=== PATIENT | male | born 1935 | race Two or more races ===

== ENCOUNTER 2020-11-12 23:51 | Inpatient (IN) | payer MEDICARE, OTHER ==
[~2020-11-12] VITALS: Ht 172.7 cm; Wt 65.8 kg
--- NOTE | 2020-11-13 00:05 | NUR ---
PATIENT GINNA FROM [facility] FOR INCRESING SOB AND DRY COUGH X 3 DAYS. PATIENT A/O X 4, RR EVEN AND UNLABORED, NO SOB NOTED AT THIS TIME, PATIENT CONNECTED TO GYMNASTIC COACH AND POX. PATINET PLACED ON 2L NC STAT AT 96%. WILL CONTINUE TO MONITOR.
--- NOTE | 2020-11-13 00:11 | NUR ---
X RAY AT BEDSIDE
[2020-11-13] MEDS ORDERED: NITROGLYCERIN PACKET 1 GM PACKET ONE (00:16)
[2020-11-13 00:25] LABS: BASOPHILS % (AUTO) 0.6 % (0.0-2.0); EOSINOPHILS % (AUTO) 1.7 % (0.0-6.0); HEMATOCRIT 31 % (39-51); HEMOGLOBIN 9.8 g/dL (13.5-17.5); LYMPHOCYTES # (AUTO) 1.5 K/uL (0.8-4.8); LYMPHOCYTES % (AUTO) 39.5 % (20.0-44.0); MEAN CORPUSCULAR HGB CONC 32 g/dl (31.0-36.0); MEAN CORPUSCULAR VOLUME 97 fL (80-96); MONOCYTES # (AUTO) 0.4 K/uL (0.1-1.30); MONOCYTES % (AUTO) 10.8 % (2.0-12.0); NEUTROPHILS # (AUTO) 1.8 K/uL (1.8-8.9); NEUTROPHILS % (AUTO) 47.4 % (43.0-81.0); PLATELET COUNT (AUTO) 89 K/uL (150-450); RED BLOOD CELL COUNT(AUTO) 3.22 MIL/uL (4.5-6.0); WHITE BLOOD COUNT (AUTO) 3.7 K/uL (4.3-11.0)
--- NOTE | 2020-11-13 00:25 | NUR ---
COVID SWAB COLLECTED AND SENT TO LAB
[2020-11-13] MEDS ORDERED: NITROGLYCERIN PACKET 1 GM PACKET TD ONE (00:30)
[2020-11-13 00:49] LABS: ALBUMIN 2.9 g/dL (3.4-5.0); BILIRUBIN,DIRECT 0.2 mg/dL (0.0-0.2); BILIRUBIN,TOTAL 0.5 mg/dL (0.2-1.0); CALCIUM, SERUM 8.5 mg/dL (8.5-10.1); CREATININE 1.1 mg/dL (0.6-1.3); POTASSIUM 5.3 mmol/L (3.5-5.1); TOTAL PROTEIN, SERUM 8.8 g/dL (6.4-8.2)
[2020-11-13 00:51] LABS: NEUTROPHILS % (MANUAL) 49 (42-76)
[2020-11-13 00:52] LABS: EOSINOPHILS % (MANUAL) 2 % (0-4); LYMPHOCYTES % (MANUAL) 43 % (16-48); MONOCYTES % (MANUAL) 6 % (0-11.0)
[2020-11-13] MEDS ORDERED: LEVO25TA7 PO (00:52)
[2020-11-13] MEDS ORDERED: APIX2.5T PO (00:52)
[2020-11-13] MEDS ORDERED: TIMO5SOL11 EACHEYE (00:52)
[2020-11-13] MEDS ORDERED: BRIN10DR EACHEYE (00:52)
[2020-11-13] MEDS ORDERED: PANT40TA49 PO (00:52)
[2020-11-13] MEDS ORDERED: FINA5TAB4 PO (00:52)
[2020-11-13] MEDS ORDERED: TAMS-12 PO (00:52)
[2020-11-13] MEDS ORDERED: FUROSEMIDE 20 MG/2 ML VIAL ONE (01:17)
[2020-11-13] MEDS ORDERED: ASPIRIN 325 MG TABLET ONE (01:17)
[2020-11-13] MEDS ORDERED: CEFTRIAXONE 1GM BAG (ER ONLY) 50 ML IV ONE (01:20)
--- NOTE | 2020-11-13 01:21 | NUR ---
GOT BED 107
[2020-11-13] MEDS ORDERED: FUROSEMIDE 20 MG/2 ML VIAL IV ONE (01:30)
[2020-11-13] MEDS ORDERED: CEFTRIAXONE 1GM BAG (ER ONLY) 1 GM/50 ML PIGGYBACK IV ONE (01:30)
[2020-11-13] MEDS ORDERED: ASPIRIN 325 MG TABLET PO ONE (01:30)
--- NOTE | 2020-11-13 01:42 | NUR ---
REPORT GIVEN TO TABATHA GILLILAND
--- NOTE | 2020-11-13 02:04 | NUR ---
PATIENT TRANSFERRED PER [facility] [employer]
[2020-11-13 02:30] VITALS: BP 133/43
--- NOTE | 2020-11-13 02:30 | NUR ---
RN ADMITTING NOTE RECEIVED PT FROM ZACK MAYS FROM ED [facility]IA [employer]. PT ON 2L NC SATURATIONS OVER 98%, NO RESP. DISTRESS NOTED. NON PRODUCTIVE COUGH. PT. IS A/O X4, DENIES ANY PAIN. ON TELE MONITOR PRESENTS A-FIB/ A-FLUTTER WITH BUNDLE BRANCH BLOCK. PT. HAS (L) CHEST WALL PACEMAKER. PT. ABLE TO USE URINAL WITH MIN. ASSISTANCE. UPON SKIN ASSESSMENT SACRAL DTI NOTED, PENDING WOUND CONSULT. (L) FA 20G IV FLUSHED AND PATENT. ALL BELONGINGS ACCOUNTED FOR. SAFETY MEASURES IMPLEMENTED. BED LOWEST POSITION, CALL LIGHT WITHIN REACH, ID BAND ON, BED RAILS UP X3 AND BED ALARM ON. NO ACUTE DISTRESS NOTED AT THIS TIME. AWAITING MD ORDERS FOR PLAN OF CARE.
[2020-11-13 04:00] VITALS: BP 117/56
--- NOTE | 2020-11-13 04:07 | NUR ---
RN NOTE-ADMITTING ORDERS CALLED DR FORBES, ORDERS TO CONTINUE SELECT MEDICATIONS NEW AND FROM FACILITY, WOUND CONSULT, LABS READ BACK VIA TELEPHONE ORDER. ORDERS CARRIED OUT.
[2020-11-13] MEDS ORDERED: GUAIFENESIN/CODEINE 10 ML UDC PO PRN (04:30)
[2020-11-13 06:46] LABS: BASOPHILS % (AUTO) 0.4 % (0.0-2.0); EOSINOPHILS % (AUTO) 1.7 % (0.0-6.0); HEMATOCRIT 29 % (39-51); HEMOGLOBIN 9.2 g/dL (13.5-17.5); LYMPHOCYTES # (AUTO) 1.3 K/uL (0.8-4.8); LYMPHOCYTES % (AUTO) 40.5 % (20.0-44.0); MEAN CORPUSCULAR HGB CONC 32 g/dl (31.0-36.0); MEAN CORPUSCULAR VOLUME 98 fL (80-96); MONOCYTES # (AUTO) 0.3 K/uL (0.1-1.30); MONOCYTES % (AUTO) 11.2 % (2.0-12.0); NEUTROPHILS # (AUTO) 1.4 K/uL (1.8-8.9); NEUTROPHILS % (AUTO) 46.2 % (43.0-81.0); PLATELET COUNT (AUTO) 76 K/uL (150-450); RED BLOOD CELL COUNT(AUTO) 2.93 MIL/uL (4.5-6.0); WHITE BLOOD COUNT (AUTO) 3.1 K/uL (4.3-11.0)
--- NOTE | 2020-11-13 06:48 | NUR ---
RN CLOSING NOTE PT CURRENTLY STABLE RESTING IN BED. PT ON 2L NC SATURATIONS OVER 98%, NO RESP. DISTRESS NOTED. NON PRODUCTIVE COUGH. PT. IS A/O X4, DENIES ANY PAIN. ON TELE MONITOR PRESENTS A-FIB/ A-FLUTTER WITH BUNDLE BRANCH BLOCK. PT. HAS (L) CHEST WALL PACEMAKER. PT. ABLE TO USE URINAL WITH MIN. ASSISTANCE. (L) FA 20G IV FLUSHED AND PATENT. ALL MD ORDERS ACKNOWLEDGED. SAFETY MEASURES IMPLEMENTED. BED LOWEST POSITION, CALL LIGHT WITHIN REACH, ID BAND ON, BED RAILS UP X3 AND BED ALARM ON. NO ACUTE DISTRESS NOTED AT THIS TIME. WILL ENDORSE CONTINUITY OF CARE TO MORNING SHIFT RN
[2020-11-13 06:55] LABS: ALBUMIN 2.9 g/dL (3.4-5.0); BILIRUBIN,TOTAL 0.4 mg/dL (0.2-1.0); CALCIUM, SERUM 8.7 mg/dL (8.5-10.1); TOTAL PROTEIN, SERUM 8.7 g/dL (6.4-8.2)
[2020-11-13] MEDS ORDERED: MORPHINE SULFATE INJ 2 MG/ML DISP.SYRIN IVP PRN (07:00)
[2020-11-13] MEDS ORDERED: ONDANSETRON HCL/PF 4 MG/2 ML VIAL IV PRN (07:00)
[2020-11-13] MEDS ORDERED: ACETAMINOPHEN 325 MG TABLET PO PRN (07:00)
[2020-11-13 07:01] LABS: THYROID STIMULATING HORMONE 3.861 uIU/mL (0.358-3.74)
[2020-11-13 07:18] LABS: POTASSIUM 4.3 mmol/L (3.5-5.1)
[2020-11-13] MEDS ORDERED: DOCU-141 PO (07:26)
[2020-11-13] MEDS ORDERED: NA P133E RC (07:26)
[2020-11-13] MEDS ORDERED: BISA10SU11 RC (07:26)
[2020-11-13] MEDS ORDERED: ACET-868 PO (07:26)
[2020-11-13] MEDS ORDERED: GUAI100S11 PO (07:26)
[2020-11-13] MEDS ORDERED: IPRA3AMP23 IH (07:26)
[2020-11-13] MEDS ORDERED: SPIR25TA PO (07:26)
[2020-11-13] MEDS ORDERED: MULT-447 PO (07:26)
[2020-11-13] MEDS ORDERED: LATA2.5D15 EACHEYE (07:26)
[2020-11-13] MEDS ORDERED: NITR0.4T48 SL (07:26)
[2020-11-13] MEDS ORDERED: FURO-145 PO (07:26)
[2020-11-13] MEDS ORDERED: MAGN400O6 PO (07:26)
[2020-11-13] MEDS ORDERED: FERR325T23 PO (07:26)
[2020-11-13] MEDS ORDERED: HYDR-4303 PO (07:26)
[2020-11-13] MEDS ORDERED: NA PHOS,M-B/NA PHOS,DI-BA 1 EA ENEMA RC PRN (07:30)
[2020-11-13] MEDS ORDERED: BISACODYL SUPP (10 MG) 10 MG/SUPP.RECT SUPP.RECT RC PRN (07:30)
[2020-11-13] MEDS ORDERED: NITROGLYCERIN 0.4 MG/TAB BOTTLE SL PRN (07:30)
[2020-11-13] MEDS ORDERED: MAGNESIUM HYDROXIDE 30 ML UDC PO PRN (07:30)
[2020-11-13 08:00] VITALS: BP 123/61
[2020-11-13] MEDS ORDERED: ALBUTEROL FS 2.5 MG/0.5 ML VIAL.NEB NEB PRN (08:00)
[2020-11-13] MEDS ORDERED: IPRATROPIUM NEB FS 0.5 MG/2.5 ML AMPUL.NEB NEB PRN (08:00)
[2020-11-13] MEDS: LEVOTHYROXINE SODIUM 25 MCG TABLET PO SCH (08:03)
[2020-11-13] MEDS: PANTOPRAZOLE 40 MG TABLET.DR PO SCH (08:03)
--- NOTE | 2020-11-13 08:37 | NUR ---
WOUND CARE CONSULT: REVIEWED CHART, NURSING DOCUMENTATION AND PHOTOS WHICH INDICATE DISCOLORATIONS TO LOWER EXTREMITIES AND RASH/DISCOLORATION TO SACRUM AND BUTTOCKS WITH RASH AND OPEN SKIN OVER PREVIOUS SCARRING, PRESENT ON ADMISSION. RECOMMENDATIONS MADE FOR SKIN PROTECTION. DISCUSSED WITH NURSING STAFF. PT TO BE PLACED ON RYLAND ISOFLEX LOW AIRLOSS BED. MD IN AGREEMENT WITH PLAN OF CARE.
[2020-11-13] MEDS ORDERED: FUROSEMIDE 20 MG/2 ML VIAL IV SCH (09:00)
[2020-11-13] MEDS ORDERED: Z GUARD REMEDY 2 OZ OINT TP PRN (09:00)
[2020-11-13] MEDS: CEFEPIME 1 GM in IV D5W 50 ML IV SCH ×2 (09:00→21:00)
[2020-11-13] MEDS: SPIRONOLACTONE 25 MG TABLET PO SCH (09:13)
[2020-11-13] MEDS: ASPIRIN 81 MG TAB.CHEW PO SCH (09:14)
[2020-11-13] MEDS: FINASTERIDE (5 MG) 5 MG TABLET PO SCH (09:14)
[2020-11-13] MEDS: APIXABAN 2.5 MG TABLET PO SCH ×2 (09:16→17:06)
[2020-11-13] MEDS: DOCUSATE SODIUM 100 MG CAPSULE PO SCH ×2 (09:17→17:06)
[2020-11-13] MEDS: BRINZOLAMIDE 1 % OPHTH SOLN 10 ML BOTTLE EACHEYE SCH ×2 (09:17→12:33)
[2020-11-13] MEDS: MULTIVIT W/MINERALS 1 TAB TABLET PO SCH (09:18)
[2020-11-13] MEDS ORDERED: TIMO5DRO35 EACHEYE (09:30)
[2020-11-13] MEDS ORDERED: ASCO-352 PO (09:30)
[2020-11-13] MEDS ORDERED: DICL20GE TD (09:30)
[2020-11-13 10:17] LABS: PHOSPHORUS 4.3 mg/dL (2.5-4.9)
[2020-11-13 11:47] LABS: THYROID STIMULATING HORMONE 4.097 uIU/mL (0.358-3.74)
[2020-11-13 12:00] VITALS: BP 118/72
[2020-11-13] MEDS: CLOTRIMAZOLE 1% 15 GM TUBE TP SCH ×2 (12:07→17:10)
[2020-11-13] MEDS: Z GUARD REMEDY 2 OZ OINT TP SCH (12:07)
[2020-11-13] MEDS: FUROSEMIDE 40 MG/4 ML VIAL IV SCH ×3 (12:07→18:13)
[2020-11-13 16:00] VITALS: BP 128/69
[2020-11-13] MEDS: DORZOLAMIDE OPTH 2% 10 ML BOTTLE EACHEYE SCH (17:08)
[2020-11-13 20:00] VITALS: BP 124/50
--- NOTE | 2020-11-13 20:00 | NUR ---
RN NOTE CRITICAL LAB VALUE OF TROPONIN 0.967 RECEIVED BY MARU IN LABORATORY. DR TAM HASSAN NOTIFIED. AWARE CURRENT TROPONIN LEVEL IS TRENDING DOWN COMPARED TO 1.019 AT 1300 TODAY. PT CURRENTLY ON ELIQUIS AND ASPIRIN. ALSO NOTIFIED OF PLT LEVEL OF 76. ORDERED TO HOLD ASPIRIN AM DOSE IF PLT CONTINUE TO TREND DOWN. WILL ENDORSE TO MORNING RN AND CONTINUE TO MONITOR LAB VALUE.
[2020-11-13] MEDS: ATORVASTATIN 40 MG TABLET PO SCH (21:45)
[2020-11-13] MEDS ORDERED: LATANOPROST EYE DROP 0.005% 2.5 ML BOTTLE EACHEYE SCH (22:00)
[2020-11-14] VITALS: BP 124/51
[2020-11-14 04:00] VITALS: BP 122/58
--- NOTE | 2020-11-14 06:43 | NUR ---
RN CLOSING NOTE PT CURRENTLY STABLE RESTING IN BED. PT ON 2L NC SATURATIONS OVER 98%, NO RESP. DISTRESS NOTED. NON PRODUCTIVE COUGH. PT. IS A/O X4, DENIES ANY PAIN. ON TELE MONITOR PRESENTS A-FIB/ A-FLUTTER WITH BUNDLE BRANCH BLOCK V-PACING. PT. HAS (L) CHEST WALL PACEMAKER. PT. ABLE TO USE URINAL WITH MIN. ASSISTANCE. (L) FA 20G IV FLUSHED AND PATENT. MEDICATION REGIMEN AND WOUND CARE FOLLOWED ORDERED AND TOLERATED WELL. SAFETY MEASURES IMPLEMENTED. BED LOWEST POSITION, CALL LIGHT WITHIN REACH, ID BAND ON, BED RAILS UP X3 AND BED ALARM ON. NO ACUTE DISTRESS NOTED AT THIS TIME. WILL ENDORSE CONTINUITY OF CARE TO MORNING SHIFT RN
[2020-11-14 07:06] LABS: *SPE A/G RATIO 0.6 (0.7-1.7); *SPE ALBUMIN 3.1 g/dL (2.9-4.4); *SPE ALPHA-1-GLOBULIN 0.2 g/dL (0.0-0.4); *SPE ALPHA-2-GLOBULIN 0.7 g/dL (0.4-1.0); *SPE M-SPIKE 0.5 g/dL (Not Observed)
[2020-11-14 07:09] LABS: BASOPHILS % (AUTO) 0.1 % (0.0-2.0); EOSINOPHILS % (AUTO) 0.6 % (0.0-6.0); HEMATOCRIT 31 % (39-51); LYMPHOCYTES # (AUTO) 1.8 K/uL (0.8-4.8); MEAN CORPUSCULAR HGB CONC 32 g/dl (31.0-36.0); MEAN CORPUSCULAR VOLUME 98 fL (80-96); MONOCYTES # (AUTO) 0.5 K/uL (0.1-1.30); MONOCYTES % (AUTO) 11.2 % (2.0-12.0); NEUTROPHILS # (AUTO) 2.1 K/uL (1.8-8.9); NEUTROPHILS % (AUTO) 47.1 % (43.0-81.0); PLATELET COUNT (AUTO) 80 K/uL (150-450); RED BLOOD CELL COUNT(AUTO) 3.16 MIL/uL (4.5-6.0); WHITE BLOOD COUNT (AUTO) 4.5 K/uL (4.3-11.0)
[2020-11-14 07:40] LABS: ALBUMIN 3.1 g/dL (3.4-5.0); BILIRUBIN,TOTAL 0.5 mg/dL (0.2-1.0); CALCIUM, SERUM 9.2 mg/dL (8.5-10.1); CREATININE 1.1 mg/dL (0.6-1.3); MAGNESIUM 2.1 mg/dL (1.8-2.4); PHOSPHORUS 4.8 mg/dL (2.5-4.9); POTASSIUM 4.5 mmol/L (3.5-5.1); TOTAL PROTEIN, SERUM 9.1 g/dL (6.4-8.2)
[2020-11-14 08:00] VITALS: BP 119/45
--- NOTE | 2020-11-14 08:00 | NUR ---
WAITRESS NOTE PATIENT IN BED, ALERT ORIENTED ON 2L NC, NO SOB NOTED AT THIS TIME, ON TELE MONITOR AFIB VPACING HR 65, LT FA IN PLACED , BED IN LOWEST AND LOCKED POSITION , ST AT BEDSIDE ALL NEEDS ATTENDED WILL MONITOR NO SOB NOTED AT THIS TIME ,BED IN [id number] AND LOCKED POSITION SAFETY MEASURE PROVIDED
[2020-11-14] MEDS: CEFEPIME 1 GM in IV D5W 50 ML IV SCH ×2 (08:42→20:37)
[2020-11-14] MEDS: PANTOPRAZOLE 40 MG TABLET.DR PO SCH (08:42)
[2020-11-14] MEDS: FINASTERIDE (5 MG) 5 MG TABLET PO SCH (08:42)
[2020-11-14] MEDS: SPIRONOLACTONE 25 MG TABLET PO SCH (08:42)
[2020-11-14] MEDS: MULTIVIT W/MINERALS 1 TAB TABLET PO SCH (08:42)
[2020-11-14] MEDS: DOCUSATE SODIUM 100 MG CAPSULE PO SCH ×2 (08:43→16:51)
[2020-11-14] MEDS: LEVOTHYROXINE SODIUM 25 MCG TABLET PO SCH (08:50)
[2020-11-14] MEDS: APIXABAN 2.5 MG TABLET PO SCH ×2 (08:51→16:52)
[2020-11-14] MEDS: Z GUARD REMEDY 2 OZ OINT TP SCH (08:52)
[2020-11-14] MEDS: DORZOLAMIDE OPTH 2% 10 ML BOTTLE EACHEYE SCH ×3 (08:53→16:53)
[2020-11-14] MEDS: TIMOLOL 0.5% SOLN OPHTH 5 ML BOTTLE EACHEYE SCH ×2 (08:54→09:02)
[2020-11-14] MEDS ORDERED: TIMOLOL 0.5% SOLN OPHTH 5 ML BOTTLE EACHEYE SCH (09:00)
[2020-11-14] MEDS: ASPIRIN 81 MG TAB.CHEW PO SCH (09:00)
[2020-11-14] MEDS: CLOTRIMAZOLE 1% 15 GM TUBE TP SCH ×2 (09:02→16:56)
--- NOTE | 2020-11-14 10:17 | NUR ---
READY MIX TRUCK DRIVER NOTE PER REPORT BATTERY SERVICE TECHNICIAN RN OK TO HOLD ASA PER DR DORSEY DUE TO LOW PLATELETS, TODAY IS 80
[2020-11-14] MEDS: FUROSEMIDE 40 MG/4 ML VIAL IV SCH ×4 (10:19→17:33)
--- NOTE | 2020-11-14 11:06 | NUR ---
telephone information clerk note new hl on rt hand reinserted ryan 22as ordered, will cont to monitor closely
--- NOTE | 2020-11-14 11:45 | NUR ---
HOSPITALITY WORKERS NOTE SEEN BY DR FORBES NOTIFIED THAT PLATELETS 80 OK TO HOLD FOR TODAY ALSO AWARE THAT PATIENT COUGH AT TIME STATED THAT WILL CHECK IT OUT
[2020-11-14 12:00] VITALS: BP 114/46
[2020-11-14] MEDS: ENSURE ENLIVE CHOC 237 ML CAN PO SCH ×2 (12:08→16:53)
[2020-11-14] MEDS: BENZONATATE 100 MG CAPSULE PO SCH ×2 (12:57→16:52)
[2020-11-14] MEDS: ALLOPURINOL 100 MG TABLET PO SCH (12:58)
--- NOTE | 2020-11-14 13:00 | NUR ---
PAYROLL AND BENEFITS SPECIALIST NOTE \ PACEMAKER CHECKED BY INTERVENTIONAL RADIOLOGY RN STATED THAT WILL REPORT TO DR KEYS
--- NOTE | 2020-11-14 15:14 | NUR ---
telephone operator receptionist note all needs attended ,keep clean dry ,no sob noted, will cont to monitor
[2020-11-14 16:00] VITALS: BP 113/46
--- NOTE | 2020-11-14 18:00 | NUR ---
TELE RNNOTE REFUSED TO HAVE LASIX 40 MG IVP EXPLAINED OF IMPORTANCE STILL REFUSED ,PATIENT RIGHT RESPECTED ,WILL CONT TO MONITOR
--- NOTE | 2020-11-14 18:33 | NUR ---
CONFIGURATION ENGINEER NOTE ROUND MADE ,REPOSITION DONE, KEEP CLEAN DRY , REFUSED TO HAVE DVT PUMPS AT THIS TIME , REFUSED TO EAT LUNCH ,STATED WANT TO SLEEP FOR NOW , ALL NEEDS ATTENDED, SAFETY MEASURE PROVIDED , CALL LIGHT WITHIN REACH
[2020-11-14 20:00] VITALS: BP 116/45
--- NOTE | 2020-11-14 20:00 | NUR ---
MOP MAKER OPENING NOTE Patient is awake, alert, and oriented x4. VSS. Denies pain or discomfort at this time. Will reposition q2H as pt is at risk for skin breakdown. Encouraged rest as much as possible. Continues to have minimal dry cough noted. No signs of distress will continue to monitor.
[2020-11-14] MEDS: LATANOPROST EYE DROP 0.005% 2.5 ML BOTTLE EACHEYE SCH (21:59)
[2020-11-14] MEDS: TAMSULOSIN 0.4 MG CAP.SR.24H PO SCH (21:59)
[2020-11-14] MEDS: ATORVASTATIN 40 MG TABLET PO SCH (21:59)
[2020-11-15] VITALS: BP 106/40
--- NOTE | 2020-11-15 00:30 | NUR ---
Patient temperature 99.9. Heater in room on because he becomes cold easily -has 6 blankets on. Initiate cooling measures to cool off core temp. Blankets taken off, temperature in room turned down. Will check back often.
[2020-11-15 04:00] VITALS: BP 114/42
--- NOTE | 2020-11-15 04:00 | NUR ---
patients temp resolved with cooling measures 97.8
[2020-11-15] MEDS: ACETAMINOPHEN 325 MG TABLET PO PRN (06:27)
--- NOTE | 2020-11-15 06:38 | NUR ---
INTELLIGENCE OPERATIONS CLOSING NOTES Patient is A&Ox4. VSS. Repositioned q2h. Needs anticipated and met by staff. Tylenol given at 0630 for headache 07/17. Patient reports the headache feels like pressure to temples. Reading on monitor is AFib. Pt been on bed rest with DVT machines on. Urinates using burr clear yellow urine. No BM this shift.
[2020-11-15 07:12] LABS: BASOPHILS % (AUTO) 0.3 % (0.0-2.0); EOSINOPHILS % (AUTO) 1.4 % (0.0-6.0); HEMATOCRIT 27 % (39-51); HEMOGLOBIN 8.8 g/dL (13.5-17.5); LYMPHOCYTES # (AUTO) 1.4 K/uL (0.8-4.8); MEAN CORPUSCULAR HGB CONC 33 g/dl (31.0-36.0); MEAN CORPUSCULAR VOLUME 99 fL (80-96); MONOCYTES # (AUTO) 0.5 K/uL (0.1-1.30); MONOCYTES % (AUTO) 12.4 % (2.0-12.0); NEUTROPHILS # (AUTO) 1.7 K/uL (1.8-8.9); NEUTROPHILS % (AUTO) 46.9 % (43.0-81.0); PLATELET COUNT (AUTO) 70 K/uL (150-450); RED BLOOD CELL COUNT(AUTO) 2.69 MIL/uL (4.5-6.0); WHITE BLOOD COUNT (AUTO) 3.6 K/uL (4.3-11.0)
[2020-11-15 07:16] LABS: ALBUMIN 2.8 g/dL (3.4-5.0); BILIRUBIN,TOTAL 0.6 mg/dL (0.2-1.0); CALCIUM, SERUM 8.7 mg/dL (8.5-10.1); CREATININE 1.2 mg/dL (0.6-1.3); MAGNESIUM 1.9 mg/dL (1.8-2.4); PHOSPHORUS 3.6 mg/dL (2.5-4.9); POTASSIUM 4.2 mmol/L (3.5-5.1); TOTAL PROTEIN, SERUM 8.4 g/dL (6.4-8.2)
--- NOTE | 2020-11-15 07:20 | NUR ---
RN NOTE OBSERVED PATIENT IN BED, AWAKE, BREATHING EVEN AND UNLABORED, DX OF NSTEMI AND PNA, AXO X4, BED ALARM ON, PATIENT ON MECHANICAL SOFT , RIGHT FOREARM G 22 PATENT INFUSING WELL, ON IV ATB FOR ASPIRATION PNA, AFEBRILE AT THIS TIME, WITH PACEMAKER, AND TELE MONITOR HR OF 62, BED WHEELS LOCK, CALL LIGHT WITHIN REACH, SAFETY MEASURE OBSERVED, WILL CONTINUE TO MONITOR.
--- NOTE | 2020-11-15 07:28 | NUR ---
RN NOTE CRITICAL LAB TROPONIN-I OF 0.896, NOTIFIED DR. FORBES, NO NEW ORDERS AT THIS TIME, PATIENT APPEARS CALM AND COMFORTABLE WITH NO CHEST PAIN COMPLAIN, WILL CONTINUE TO MONITOR.
[2020-11-15 08:00] VITALS: BP 113/51
[2020-11-15] MEDS: PANTOPRAZOLE 40 MG TABLET.DR PO SCH (08:22)
[2020-11-15] MEDS: LEVOTHYROXINE SODIUM 25 MCG TABLET PO SCH (08:22)
[2020-11-15] MEDS: ENSURE ENLIVE CHOC 237 ML CAN PO SCH ×2 (09:08→17:00)
[2020-11-15] MEDS: CEFEPIME 1 GM in IV D5W 50 ML IV SCH ×2 (09:55→21:01)
[2020-11-15] MEDS: ASPIRIN 81 MG TAB.CHEW PO SCH (09:55)
[2020-11-15] MEDS: TIMOLOL 0.5% SOLN OPHTH 5 ML BOTTLE EACHEYE SCH (09:56)
[2020-11-15] MEDS: DORZOLAMIDE OPTH 2% 10 ML BOTTLE EACHEYE SCH ×3 (09:56→17:25)
[2020-11-15] MEDS: FUROSEMIDE 40 MG TABLET PO SCH (09:59)
[2020-11-15] MEDS: DOCUSATE SODIUM 100 MG CAPSULE PO SCH ×2 (09:59→17:26)
[2020-11-15] MEDS: ALLOPURINOL 100 MG TABLET PO SCH (09:59)
[2020-11-15] MEDS: MULTIVIT W/MINERALS 1 TAB TABLET PO SCH (09:59)
[2020-11-15] MEDS: BENZONATATE 100 MG CAPSULE PO SCH ×3 (09:59→17:26)
[2020-11-15] MEDS: SPIRONOLACTONE 25 MG TABLET PO SCH (09:59)
[2020-11-15] MEDS: FINASTERIDE (5 MG) 5 MG TABLET PO SCH (09:59)
[2020-11-15] MEDS: CLOTRIMAZOLE 1% 15 GM TUBE TP SCH ×2 (10:08→17:00)
[2020-11-15] MEDS: Z GUARD REMEDY 2 OZ OINT TP SCH (10:09)
--- NOTE | 2020-11-15 10:12 | NUR ---
RN NOTE PATIENT ON ELIQUIS 2.5 MG, NOTIFIED DR. FORBES PATIENT PLATELET IF 70, OK TO GIVE ELIQUIS. HOLD ASPIRIN ORDERED.
[2020-11-15] MEDS: APIXABAN 2.5 MG TABLET PO SCH ×2 (10:15→17:27)
[2020-11-15 12:00] VITALS: BP 113/58
[2020-11-15 16:00] VITALS: BP 114/51
--- NOTE | 2020-11-15 19:10 | NUR ---
RN NOTES: RECEIVED AWAKE LYING ON BED WATCHING TV, A/OX4, CONVERSANT AND VERY COMMUNICATIVE, ORIENTED TO UNIT AND STAFF, FOR IV INSERTION, HIS CANNULA WAS OUT, HE AGREE TO DO IT LATER, BREATHING SPONTANEOUSLY ON O2 AT 2L/MIN VIA NC, HE HAS PACEMAKER, ON DIET KITCHEN COOK RATE-62-B PACING, NO PAIN OR DISCOMFORT, NO SOB OR RESPIRATORY DISCOMFORT.KEPT ON CLOSE WATCH. FALL SAFETY AND ASPIRATION PRECAUTION OBSERVED, BED LOW AND LOCKED, CALL LIGHT KEPT WITHIN EASY REACH.
--- NOTE | 2020-11-15 19:30 | NUR ---
RN NOTE PATIENT OBSERVED IN BED, ALERT AND ORIENTED X4, ON TELEMONITOR HR OF 62 PACING, PATIENT HAS A PACEMAKER, BREATHING EVEN AND UNLABORED, ENDORSE PATIENT CURRENT CONDITION TO NOC NURSE SAFETY MEASURE OBSERVED, CALL LIGHT WITHIN REACH, BED WHEELS LOCK, BED ALARM ON.
[2020-11-15 20:00] VITALS: BP 106/44
[2020-11-15] MEDS: LATANOPROST EYE DROP 0.005% 2.5 ML BOTTLE EACHEYE SCH (21:02)
--- NOTE | 2020-11-15 21:36 | NUR ---
RN NOTES: AT 21OO EXPLAINED TO HIM DUE FOR IV/ATB, HE AGREED FOR IV INSERTION ON THE RFA 324, INSERTED 1 TIME WITH GOOD BACK FLOW, AND SECURED WITH TRANSPARENT DRESSING. -HE URINATE, COLLECTED URINE FOR TEST,WILL SEND TO LAB. -IV/ATB GIVEN.
[2020-11-15] MEDS: TAMSULOSIN 0.4 MG CAP.SR.24H PO SCH (21:55)
[2020-11-15] MEDS: ATORVASTATIN 40 MG TABLET PO SCH (21:56)
[2020-11-16] VITALS: BP 113/48
[2020-11-16 00:55] LABS: BILIRUBIN,URINE NEGATIVE (NEGATIVE); COLOR,URINE YELLOW (YELLOW); LEUKOCYTE ESTERASE ,URINE LARGE (NEGATIVE); NITRITE, URINE NEGATIVE (NEGATIVE); PROTEIN,URINE TRACE mg/dl (NEGATIVE); UGLUCOSE NEGATIVE (NEGATIVE); UROBILINOGEN,URINE 0.2 EU/dL (0.2)
[2020-11-16 01:08] LABS: WBC,URINE 81-100 /HPF (0-3)
[2020-11-16 01:09] LABS: BACTERIA,URINE Moderate /HPF (None Seen); SQUAMOUS EPITHELIAL CELL,UR Few /HPF (None Seen)
[2020-11-16 04:00] VITALS: BP 110/41
[2020-11-16] MEDS: ACETAMINOPHEN 325 MG TABLET PO PRN (04:55)
--- NOTE | 2020-11-16 04:55 | NUR ---
RN NOTES: SLEEP WELL IN THE NIGHT , UPON HE WAKE UP COMPLAINED OF GENERALIZED PAIN, REQUEST FOR TYLENOL, GIVEN, NON PHARMACOLOGIC INTERVENTION RENDERED. -NEEDS ATTENDED KEPT CALL LIGHT WIHTIN EASY REACH.
[2020-11-16 06:10] LABS: BASOPHILS % (AUTO) 0.2 % (0.0-2.0); EOSINOPHILS % (AUTO) 1.7 % (0.0-6.0); HEMATOCRIT 29 % (39-51); HEMOGLOBIN 9.4 g/dL (13.5-17.5); LYMPHOCYTES # (AUTO) 1.1 K/uL (0.8-4.8); LYMPHOCYTES % (AUTO) 32.1 % (20.0-44.0); MEAN CORPUSCULAR HGB CONC 32 g/dl (31.0-36.0); MEAN CORPUSCULAR VOLUME 96 fL (80-96); MONOCYTES # (AUTO) 0.4 K/uL (0.1-1.30); NEUTROPHILS # (AUTO) 1.8 K/uL (1.8-8.9); PLATELET COUNT (AUTO) 75 K/uL (150-450); RED BLOOD CELL COUNT(AUTO) 3.04 MIL/uL (4.5-6.0); WHITE BLOOD COUNT (AUTO) 3.4 K/uL (4.3-11.0)
[2020-11-16 06:42] LABS: CALCIUM, SERUM 8.8 mg/dL (8.5-10.1); CREATININE 1.1 mg/dL (0.6-1.3); POTASSIUM 4.9 mmol/L (3.5-5.1)
--- NOTE | 2020-11-16 06:42 | NUR ---
RN NOTES: ABLE TO SLEEP AGAIN, NO SIGN OF RESPIRATORY DISTRESS, KEPT CALL LIGHT WITHIN EASY REACH, MORNING CARE DONE,ENDORSED FOR CONTINUITY OF CARE
--- NOTE | 2020-11-16 07:30 | NUR ---
TIP PUNCHER AM NOTE PT IN BED, AWAKE, ORIENTED X 4, ON 2LPM VIA NASAL CANULA, DENIES SOB, RESPIRATION UNLABORED. WITH PACEMAKER, V PACING ON MONITOR HR 60s, DENIES CHEST DISCOMFORT, RIGHT FOREARM G 24 FLUSHES WELL, SITE CLEAR. SEE NURSING FLOWSHEET FOR SKIN ISSUES, USES URINALS, NEEDS ASSIST IN TURNING AND REPOSITIONING, HOB ELEVATED, MECHANICAL SOFT DIET. POC DISCUSSED, VERBALIZED UNDERSTANDING. SAFETY MEASURES IN PLACE, BED LOW LOCKED, SR UP X 2, CALL LIGHT WITHIN REACH, WILL CONTINUE TO MONITOR.
[2020-11-16 08:00] VITALS: BP 107/42
--- NOTE | 2020-11-16 08:12 | NUR ---
RN NOTES DC TELEMETRY PER DR. KEYS
[2020-11-16] MEDS: DORZOLAMIDE OPTH 2% 10 ML BOTTLE EACHEYE SCH ×3 (08:22→17:47)
[2020-11-16] MEDS: TIMOLOL 0.5% SOLN OPHTH 5 ML BOTTLE EACHEYE SCH (08:23)
[2020-11-16] MEDS: LEVOTHYROXINE SODIUM 25 MCG TABLET PO SCH (08:27)
[2020-11-16] MEDS: PANTOPRAZOLE 40 MG TABLET.DR PO SCH (08:27)
[2020-11-16] MEDS: ENSURE ENLIVE CHOC 237 ML CAN PO SCH ×2 (08:28→17:47)
[2020-11-16] MEDS: FUROSEMIDE 40 MG TABLET PO SCH (08:28)
[2020-11-16] MEDS: DOCUSATE SODIUM 100 MG CAPSULE PO SCH ×2 (08:28→17:47)
[2020-11-16] MEDS: FINASTERIDE (5 MG) 5 MG TABLET PO SCH (08:28)
[2020-11-16] MEDS: SPIRONOLACTONE 25 MG TABLET PO SCH (08:28)
[2020-11-16] MEDS: CEFEPIME 1 GM in IV D5W 50 ML IV SCH (08:28)
[2020-11-16] MEDS: MULTIVIT W/MINERALS 1 TAB TABLET PO SCH (08:28)
[2020-11-16] MEDS: BENZONATATE 100 MG CAPSULE PO SCH (08:32)
[2020-11-16] MEDS: ASPIRIN 81 MG TAB.CHEW PO SCH (08:32)
[2020-11-16] MEDS: APIXABAN 2.5 MG TABLET PO SCH (08:32)
[2020-11-16] MEDS: ALLOPURINOL 100 MG TABLET PO SCH (08:32)
[2020-11-16] MEDS: Z GUARD REMEDY 2 OZ OINT TP SCH (08:47)
[2020-11-16] MEDS: CLOTRIMAZOLE 1% 15 GM TUBE TP SCH ×2 (08:47→17:48)
--- NOTE | 2020-11-16 09:30 | NUR ---
RN NOTES DUE MEDS GIVEN
[2020-11-16] MEDS: MEROPENEM 500 MG in IV NS 0.9% 50 ML IV SCH ×2 (11:29→21:23)
[2020-11-16 12:00] VITALS: BP 104/48
--- NOTE | 2020-11-16 14:30 | NUR ---
RN NOTES PATIENT FOR BONE MARROW BIOPSY AND ASPIRATION C/O DR. TORREZ ON Wednesday11/19/20. TELEPHONE CONSENT GIVEN BY SON MARVIN. ASA AND ELIQUIS STOPPED AND PLACED ON HEPARIN 5,000 EVERY 8 HOURS. HOLD HEPARIN 4 HOURS PRIOR TO PROCEDURE.
[2020-11-16 16:00] VITALS: BP 117/45
--- NOTE | 2020-11-16 18:29 | NUR ---
MS RN PM NOTE PT IN BED, RESTING , AWAKE, ORIENTED X 4, ON 2LPM VIA NASAL CANULA, DENIES SOB, RESPIRATION UNLABORED. WITH PACEMAKER, V PACING ON MONITOR HR 60s, DENIES CHEST DISCOMFORT, RIGHT FOREARM G 24 FLUSHES WELL, SITE CLEAR. USES URINALS, ASSISTED IN TURNING AND REPOSITIONING Q 2 HOURS, HOB ELEVATED, MECHANICAL SOFT DIET. PM CARE DONE. SAFETY MEASURES IN PLACE, BED LOW LOCKED, SR UP X 2, CALL LIGHT WITHIN REACH, ALL NEDDS MET AT THIS TIME. WILL ENDORSE TO NEXT SHIFT FOR CALIN.
--- NOTE | 2020-11-16 19:53 | NUR ---
MS TABATHA Notes Patient was seen awake in bed resting. Patient is alert and oriented x4. Patient's on room air with no respiratory distress noted. Patient has an IV access on his right hand gauge #20. Patient's in no acute distress at this time. Safety measures in place: Bed locked, bed alarm on, side rails up X3, and call light within reach of the patient. Will continue to monitor the patient. Addendum: 11/16/20 at 1958 by CHANDLER MAHAJAN RN Disregard last "MS RN Notes" MS RN Notes Patient was seen awake in bed resting. Patient's alert and oriented x4. Patient's on 2L of oxygen via nasal cannula with no respiratory distress noted. Patient has an IV access on his RFA gauge#24. Patient's in no acute distress at time time. Patient's in no acute distress at this time. Safety measures in place: Bed locked, bed alarm on, side rails up x3, and call light within reach. Will continue to monitor the patient.
[2020-11-16 20:00] VITALS: BP 114/49
[2020-11-16] MEDS: HYDROCODONE/APAP 5/325MG TABLET PO PRN (20:20)
--- NOTE | 2020-11-16 20:20 | NUR ---
MS RN Notes Patient c/o 6/10 pain. Patient was given 1 tablet of [place] (5mg/325mg) by mouth Will continue to monitor the patient.
[2020-11-16] MEDS: TAMSULOSIN 0.4 MG CAP.SR.24H PO SCH (21:22)
[2020-11-16] MEDS: ATORVASTATIN 40 MG TABLET PO SCH (21:22)
[2020-11-16] MEDS: HEPARIN SODIUM, PORCINE 5000 UNITS/1 ML VIAL SQ SCH (21:22)
[2020-11-16] MEDS: LATANOPROST EYE DROP 0.005% 2.5 ML BOTTLE EACHEYE SCH (21:25)
[2020-11-17] MEDS: HEPARIN SODIUM, PORCINE 5000 UNITS/1 ML VIAL SQ SCH (04:12)
[2020-11-17 05:00] VITALS: BP 125/56
--- NOTE | 2020-11-17 07:17 | NUR ---
MS RN Notes Patient was seen sleeping in bed. Patient is alert and oriented x4. Patient's on room air with no respiratory distress noted. Patient has an IV access on his right hand gauge #20. Patient's in no acute distress at this time. Safety measures in place: Bed locked, bed alarm on, side rails up X3, and call light within reach of the patient. Will endorse care to the day shift nurse.
[2020-11-17 08:00] VITALS: BP 134/43
[2020-11-17 08:35] LABS: BASOPHILS % (AUTO) 0.3 % (0.0-2.0); EOSINOPHILS % (AUTO) 1.6 % (0.0-6.0); HEMATOCRIT 28 % (39-51); HEMOGLOBIN 9.1 g/dL (13.5-17.5); LYMPHOCYTES # (AUTO) 1.1 K/uL (0.8-4.8); LYMPHOCYTES % (AUTO) 32.1 % (20.0-44.0); MEAN CORPUSCULAR HGB CONC 33 g/dl (31.0-36.0); MEAN CORPUSCULAR VOLUME 95 fL (80-96); MONOCYTES # (AUTO) 0.5 K/uL (0.1-1.30); NEUTROPHILS # (AUTO) 1.8 K/uL (1.8-8.9); PLATELET COUNT (AUTO) 72 K/uL (150-450); RED BLOOD CELL COUNT(AUTO) 2.93 MIL/uL (4.5-6.0); WHITE BLOOD COUNT (AUTO) 3.4 K/uL (4.3-11.0)
[2020-11-17] MEDS: ALLOPURINOL 100 MG TABLET PO SCH (09:42)
[2020-11-17] MEDS: MULTIVIT W/MINERALS 1 TAB TABLET PO SCH (09:42)
[2020-11-17] MEDS: SPIRONOLACTONE 25 MG TABLET PO SCH (09:42)
[2020-11-17] MEDS: FOLIC ACID 1 MG TABLET PO SCH (09:42)
[2020-11-17] MEDS: DOCUSATE SODIUM 100 MG CAPSULE PO SCH ×2 (09:42→17:38)
[2020-11-17] MEDS: FUROSEMIDE 40 MG TABLET PO SCH (09:42)
[2020-11-17] MEDS: FINASTERIDE (5 MG) 5 MG TABLET PO SCH (09:42)
[2020-11-17] MEDS: LEVOTHYROXINE SODIUM 25 MCG TABLET PO SCH (09:42)
[2020-11-17] MEDS: DORZOLAMIDE OPTH 2% 10 ML BOTTLE EACHEYE SCH ×3 (09:43→17:39)
[2020-11-17] MEDS: ENSURE ENLIVE CHOC 237 ML CAN PO SCH ×2 (09:43→17:38)
[2020-11-17] MEDS: PANTOPRAZOLE 40 MG TABLET.DR PO SCH (09:43)
[2020-11-17] MEDS: TIMOLOL 0.5% SOLN OPHTH 5 ML BOTTLE EACHEYE SCH (09:43)
[2020-11-17] MEDS: CLOTRIMAZOLE 1% 15 GM TUBE TP SCH ×2 (09:44→17:38)
[2020-11-17] MEDS: Z GUARD REMEDY 2 OZ OINT TP SCH (09:44)
[2020-11-17] MEDS: MEROPENEM 500 MG in IV NS 0.9% 50 ML IV SCH ×2 (09:45→21:23)
[2020-11-17 10:31] LABS: ALBUMIN 2.7 g/dL (3.4-5.0); BILIRUBIN,TOTAL 0.5 mg/dL (0.2-1.0); CALCIUM, SERUM 8.7 mg/dL (8.5-10.1); CREATININE 0.9 mg/dL (0.6-1.3); POTASSIUM 4.9 mmol/L (3.5-5.1); TOTAL PROTEIN, SERUM 8.6 g/dL (6.4-8.2)
--- NOTE | 2020-11-17 11:00 | NUR ---
RN NOTE HEMATOMA FORMED ON LEFT FOREARM AFTER BLOOD DRAW. MD MADE AWARE. ARM ELEVATED. BLOOD THINNERS HELD.
[2020-11-17] MEDS: HYDROCODONE/APAP 5/325MG TABLET PO PRN (14:03)
[2020-11-17 16:00] VITALS: BP 110/60
--- NOTE | 2020-11-17 19:40 | NUR ---
RN OPENING NOTES RECEIVED PT IN BED. ALERT AND ORIENTED X4. PATIENT IS ON 2L OF OXYGEN VIA NC OXYGEN SATURATION >95%. PT SHOWING NO S/S OF SOB, RESPIRATORY DISTRESS. PT IS NSR. PT HAS RIGHT UPPER ARM MIDLINE GAUGE 18 FLUSHED AND INTACT. PT REPOSITIONED FOR SKIN MANAGEMENT, KEPT DRY/CLEAN. ALL SAFETY MEASURES IMPLEMENTED. BED LOCKED AND IN LOWEST POSITION, BED ALARM ON, CALL LIGHT WITHIN REACH, SIDE RAILS UP. WILL CONTINUE TO MONITOR.
[2020-11-17 20:00] VITALS: BP 108/29
[2020-11-17] MEDS: LATANOPROST EYE DROP 0.005% 2.5 ML BOTTLE EACHEYE SCH (21:23)
[2020-11-17] MEDS: ATORVASTATIN 40 MG TABLET PO SCH (21:23)
[2020-11-17] MEDS: TAMSULOSIN 0.4 MG CAP.SR.24H PO SCH (21:23)
[2020-11-18 04:00] VITALS: BP 109/33
--- NOTE | 2020-11-18 06:44 | NUR ---
RN CLOSING NOTES PT IN BED A&OX4, NO CHANGE IN CONDITION DURING SUPERVISOR FINISHING. PATIENT IS STABLE. RIGHT UPPER ARM MIDLINE AND RIGHT FOREARM SALINE LOCK FLUSHED INTACT AND PATENT. ALL NEEDS INTENDED. KEPT CLEAN AND DRY. ASSESSED AND REPOSITIONED Q2H. BED LOCKED AND IN LOWEST POSITION, SIDE RAILS UP, CALL LIGHT WITHIN REACH, WILL ENDORSE TO MORNING RN FOR CALIN.
[2020-11-18 06:47] LABS: BASOPHILS % (AUTO) 0.3 % (0.0-2.0); EOSINOPHILS % (AUTO) 1.8 % (0.0-6.0); HEMATOCRIT 25 % (39-51); HEMOGLOBIN 8.1 g/dL (13.5-17.5); LYMPHOCYTES # (AUTO) 1.2 K/uL (0.8-4.8); LYMPHOCYTES % (AUTO) 45.7 % (20.0-44.0); MEAN CORPUSCULAR HGB CONC 33 g/dl (31.0-36.0); MEAN CORPUSCULAR VOLUME 95 fL (80-96); MONOCYTES # (AUTO) 0.5 K/uL (0.1-1.30); MONOCYTES % (AUTO) 17.3 % (2.0-12.0); NEUTROPHILS # (AUTO) 0.9 K/uL (1.8-8.9); NEUTROPHILS % (AUTO) 34.9 % (43.0-81.0); PLATELET COUNT (AUTO) 71 K/uL (150-450); RED BLOOD CELL COUNT(AUTO) 2.59 MIL/uL (4.5-6.0); WHITE BLOOD COUNT (AUTO) 2.7 K/uL (4.3-11.0)
[2020-11-18 07:39] LABS: CALCIUM, SERUM 8.6 mg/dL (8.5-10.1); CREATININE 1.1 mg/dL (0.6-1.3); POTASSIUM 4.9 mmol/L (3.5-5.1)
--- NOTE | 2020-11-18 07:45 | NUR ---
MS RN OPENING NOTES RECEIVED PATIENT IN BED, AWAKE, A/O X3. PATIENT IS ON OXYGEN THERAPY AT 2 LMP VIA NASAL CANNULA, BREATHING EVEN AND UNLABORED, NO SOB NOTED. NO COMPLAINS OF PAIN. JUAN ALBERTO PICC PRESENT AND INTACT. SAFETY PRECAUTIONS IN PLACE; BED IN LOW POSITION AND LOCKED, RAILS UP X2, CALL LIGHT WITHIN REACH. WILL CONTINUE TO MONITOR PATIENT.
[2020-11-18] MEDS: FUROSEMIDE 40 MG TABLET PO SCH (08:05)
[2020-11-18] MEDS: SPIRONOLACTONE 25 MG TABLET PO SCH (08:05)
[2020-11-18] MEDS: FOLIC ACID 1 MG TABLET PO SCH (08:10)
[2020-11-18] MEDS: PANTOPRAZOLE 40 MG TABLET.DR PO SCH (08:11)
[2020-11-18] MEDS: DOCUSATE SODIUM 100 MG CAPSULE PO SCH ×2 (08:11→16:41)
[2020-11-18] MEDS: ALLOPURINOL 100 MG TABLET PO SCH (08:11)
[2020-11-18] MEDS: FINASTERIDE (5 MG) 5 MG TABLET PO SCH (08:11)
[2020-11-18] MEDS: LEVOTHYROXINE SODIUM 25 MCG TABLET PO SCH (08:11)
[2020-11-18] MEDS: MULTIVIT W/MINERALS 1 TAB TABLET PO SCH (08:11)
[2020-11-18] MEDS: ENSURE ENLIVE CHOC 237 ML CAN PO SCH ×2 (08:12→16:41)
[2020-11-18] MEDS: TIMOLOL 0.5% SOLN OPHTH 5 ML BOTTLE EACHEYE SCH (08:13)
[2020-11-18] MEDS: DORZOLAMIDE OPTH 2% 10 ML BOTTLE EACHEYE SCH ×3 (08:13→16:42)
[2020-11-18] MEDS: MEROPENEM 500 MG in IV NS 0.9% 50 ML IV SCH ×2 (08:13→21:41)
[2020-11-18] MEDS: CLOTRIMAZOLE 1% 15 GM TUBE TP SCH ×2 (08:14→16:41)
[2020-11-18] MEDS: Z GUARD REMEDY 2 OZ OINT TP SCH (08:14)
[2020-11-18 09:21] VITALS: BP 113/36
--- NOTE | 2020-11-18 09:27 | NUR ---
WOUND CARE CONSULT: PT SEEN FOR LEFT ARM PURPLE DISCOLORATION WITH RAISED AREA, NO DRAINAGE. DISCUSSED WITH NURSING STAFF AND AIRCRAFT FUELER. DEFER TO PMD FOR POSSIBLE SURGICAL CONSULT.
[2020-11-18 09:59] LABS: BAND % (MANUAL) 2 % (0.0-5.0); EOSINOPHILS % (MANUAL) 1 % (0-4); LYMPHOCYTES % (MANUAL) 40 % (16-48); MONOCYTES % (MANUAL) 16 % (0-11.0); NEUTROPHILS % (MANUAL) 41 (42-76)
[2020-11-18 10:07] LABS: *ANA ANTI-CENTROMERE B AB <0.2 AI (0.0-0.9); *ANA ANTI-DNA(DS) AB, QN 10 IU/mL (0-9); *ANA ANTI-JO-1 <0.2 AI (0.0-0.9); *ANA ANTICHROMATIN ANTIBODY <0.2 AI (0.0-0.9); *ANA RNP ANTIBODIES <0.2 AI (0.0-0.9); *ANA SJOGREN'S ANTI-SS-A <0.2 AI (0.0-0.9); *ANA SJOGREN'S ANTI-SS-B <0.2 AI (0.0-0.9); *ANAANTI-SCLERODERMA-70 AB 0.2 AI (0.0-0.9); *ANASMITH AB <0.2 AI (0.0-0.9)
[2020-11-18 14:35] LABS: HEMOGLOBIN 8.1 g/dL (13.5-17.5)
[2020-11-18] MEDS: METOCLOPRAMIDE HCL 10 MG/2 ML VIAL IV SCH ×2 (14:35→17:30)
[2020-11-18] MEDS ORDERED: TBO-FILGRASTIM 300 MCG/0.5 ML SYRINGE SQ SCH (15:00)
[2020-11-18] MEDS: VANCOMYCIN 1 GM in IV D5W 250 ML IV SCH (15:48)
[2020-11-18 18:37] VITALS: BP 113/37
--- NOTE | 2020-11-18 19:28 | NUR ---
MS RN CLOSING NOTES PATIENT REMAINS IN BED, AWAKE, A/O X3. PATIENT IS ON OXYGEN THERAPY AT 2 LMP VIA NASAL CANNULA, BREATHING EVEN AND UNLABORED, NO SOB NOTED DURING THE DAY. NO COMPLAINS OF PAIN. JUAN ALBERTO MID LINE PRESENT AND INTACT. ALL NEEDS ATTENDED DURING THE DAY. SAFETY PRECAUTIONS IN PLACE; BED IN LOW POSITION AND LOCKED, RAILS UP X2, CALL LIGHT WITHIN REACH. ENDORSED TO RACE RELATIONS ADVISER NURSE FOR CALIN.
--- NOTE | 2020-11-18 19:50 | NUR ---
RN OPENING NOTE RECD PT IN BED A/O X4, PT IS ON 3L OF O2 VIA NC. TOLERATING WELL. NO DISTRESS NOTED. PT IS ON MED SURG MONITORING. DENIES PAIN. JUAN ALBERTO MIDLINE FLUSHED ASEPTICALLY. ALL SAFETY MEASURES IN PLACE, HOB ELEVATED BED LOCKED IN LOWEST POSITION WITH BED ALARM ON. CALL LIGHT WITHIN REACH. WILL CONT TO MONITOR CLOSELY.
[2020-11-18 20:00] VITALS: BP 110/48
[2020-11-18] MEDS: TAMSULOSIN 0.4 MG CAP.SR.24H PO SCH (21:42)
[2020-11-18] MEDS: ATORVASTATIN 40 MG TABLET PO SCH (21:42)
[2020-11-18] MEDS: LATANOPROST EYE DROP 0.005% 2.5 ML BOTTLE EACHEYE SCH ×2 (21:46→23:00)
[2020-11-19] MEDS: HYDROCODONE/APAP 5/325MG TABLET PO PRN (00:11)
[2020-11-19 04:00] VITALS: BP 102/39
[2020-11-19 06:22] LABS: BASOPHILS % (AUTO) 0.1 % (0.0-2.0); EOSINOPHILS % (AUTO) 0.7 % (0.0-6.0); HEMATOCRIT 25 % (39-51); HEMOGLOBIN 8.3 g/dL (13.5-17.5); LYMPHOCYTES # (AUTO) 2.5 K/uL (0.8-4.8); LYMPHOCYTES % (AUTO) 18.9 % (20.0-44.0); MEAN CORPUSCULAR HGB CONC 33 g/dl (31.0-36.0); MEAN CORPUSCULAR VOLUME 95 fL (80-96); NEUTROPHILS # (AUTO) 9.5 K/uL (1.8-8.9); NEUTROPHILS % (AUTO) 72.3 % (43.0-81.0); PLATELET COUNT (AUTO) 71 K/uL (150-450); RED BLOOD CELL COUNT(AUTO) 2.69 MIL/uL (4.5-6.0); WHITE BLOOD COUNT (AUTO) 13.1 K/uL (4.3-11.0)
--- NOTE | 2020-11-19 06:50 | NUR ---
RN CLOSING NOTE NO SIGNIFICANT CHANGES IN PT CONDITION. ALL NEEDS ATTENDED. PT DENIES PAIN. BED BATH DONE, PT REMAINS ON 3L OF O2 VIA NC. ON MED SURG MONITORING. WOUND CARE DONE. PT T/R Q2H. ALL DUE MEDS GIVEN. ALL SAFETY MEASURES IN PLACE, HOB ELEVATED BED LOCKED IN LOWEST POSITION WITH BED ALARM ON. CALL LIGHT WITHIN REACH. WILL ENDORSE TO DAY SHIFT RN FOR CONTINUATION OF CARE.
[2020-11-19 06:52] LABS: CALCIUM, SERUM 8.5 mg/dL (8.5-10.1); POTASSIUM 4.8 mmol/L (3.5-5.1)
[2020-11-19 08:00] VITALS: BP 109/50
[2020-11-19] MEDS: ENSURE ENLIVE CHOC 237 ML CAN PO SCH ×2 (08:00→17:00)
[2020-11-19] MEDS: FINASTERIDE (5 MG) 5 MG TABLET PO SCH (08:33)
[2020-11-19] MEDS: METOCLOPRAMIDE HCL 10 MG/2 ML VIAL IV SCH ×3 (08:33→18:03)
[2020-11-19] MEDS: FOLIC ACID 1 MG TABLET PO SCH (08:33)
[2020-11-19] MEDS: LEVOTHYROXINE SODIUM 25 MCG TABLET PO SCH (08:33)
[2020-11-19] MEDS: MULTIVIT W/MINERALS 1 TAB TABLET PO SCH (08:33)
[2020-11-19] MEDS: SPIRONOLACTONE 25 MG TABLET PO SCH (08:33)
[2020-11-19] MEDS: PANTOPRAZOLE 40 MG TABLET.DR PO SCH (08:33)
[2020-11-19] MEDS: ALLOPURINOL 100 MG TABLET PO SCH (08:33)
[2020-11-19] MEDS: DOCUSATE SODIUM 100 MG CAPSULE PO SCH ×2 (08:33→17:00)
[2020-11-19] MEDS: FUROSEMIDE 40 MG TABLET PO SCH (08:36)
[2020-11-19] MEDS ORDERED: LIDOCAINE 1% INJ 50 ML MDV IJ ONE (09:00)
[2020-11-19] MEDS: DORZOLAMIDE OPTH 2% 10 ML BOTTLE EACHEYE SCH ×3 (09:28→17:58)
[2020-11-19] MEDS: TIMOLOL 0.5% SOLN OPHTH 5 ML BOTTLE EACHEYE SCH (09:28)
[2020-11-19] MEDS: CLOTRIMAZOLE 1% 15 GM TUBE TP SCH ×2 (09:28→17:00)
[2020-11-19] MEDS: Z GUARD REMEDY 2 OZ OINT TP SCH (09:28)
--- NOTE | 2020-11-19 09:37 | NUR ---
WOUND CARE FOLLOW UP: LEFT ARM HEMATOMA SEEN BY DR FORBES. DR ROSS CALLED FOR SURGICAL CONSULT PER DR FORBES.
[2020-11-19] MEDS: MEROPENEM 500 MG in IV NS 0.9% 50 ML IV SCH ×2 (09:57→22:00)
--- NOTE | 2020-11-19 12:43 | NUR ---
called for pt, nurse stated she would call when pt is ready.
[2020-11-19 16:00] VITALS: BP 114/50
[2020-11-19] MEDS: VANCOMYCIN 1 GM in IV D5W 250 ML IV SCH (16:55)
--- NOTE | 2020-11-19 19:12 | NUR ---
RN CLOSING NOTES Patient is alert and oriented. On 2 liters 02 via n/c with 02 sat of 98 %. right upper arm midline , intact and patent. No c/o pain or discomfort. HOB kept elevated. Patient c/o sob while being asked to transfer to radiology for body scan. Vitals assessed 02 sat of 98% on 2lpm. hob kept elevated. Per md , chest xray ordered and patient unable to tolerate body scan . MD Lovett made aware. Patient monitored throughout shift. Endorsed to next shift to monitor for SOB and to follow up with Dr Spencer for biopsy of bone marrow. Currently awaiting md. Per DR Lovett, to start lovenox after biopsy. Endorsement done to next shift to follow up regarding initiating lovenox.
--- NOTE | 2020-11-19 19:54 | NUR ---
RN NOTE PATIENT IN BED RESTING WITH HOB ELEVATED. ALERT AND ORIENTED X3-4. ON 2L O2 VIA NASAL CANNULA, O2 SAT 98%. COMPLAINED OF 3/10 GENERALIZED BODY PAIN, TOLERABLE. TURNED AND REPOSITIONED FOR COMFORT. IV ACCESS ON JUAN ALBERTO MIDLINE, PATENT AND INTACT. AWAITING FOR DR. TORREZ FOR BONE MARROW BIOPSY, PER DR. FORBES TO START LOVENOX AFTER BONE BIOPSY. BED LOCKED AND IN LOWEST POSITION. CALL LIGHT WITHIN REACH. ALL NEEDS ANTICIPATED.
[2020-11-19 20:00] VITALS: BP 110/48
--- NOTE | 2020-11-19 21:35 | NUR ---
2135 S/P BONE MARROW BIOPSY BY DR. TORREZ. PER DR. CUCA ZACARIAS TO START PATIENT ON ANTI COAGULANT.
--- NOTE | 2020-11-19 21:54 | NUR ---
BONE MARROW BIOPSY SENT TO PATHOLOGY AT THIS TIME.
[2020-11-19] MEDS: ATORVASTATIN 40 MG TABLET PO SCH (22:00)
[2020-11-19] MEDS: TAMSULOSIN 0.4 MG CAP.SR.24H PO SCH (22:00)
[2020-11-19 22:03] LABS: BASOPHILS % (AUTO) 0.1 % (0.0-2.0); EOSINOPHILS % (AUTO) 0.6 % (0.0-6.0); HEMATOCRIT 26 % (39-51); HEMOGLOBIN 8.6 g/dL (13.5-17.5); LYMPHOCYTES # (AUTO) 2.6 K/uL (0.8-4.8); LYMPHOCYTES % (AUTO) 14.4 % (20.0-44.0); MEAN CORPUSCULAR HGB CONC 33 g/dl (31.0-36.0); MEAN CORPUSCULAR VOLUME 94 fL (80-96); MONOCYTES # (AUTO) 0.9 K/uL (0.1-1.30); MONOCYTES % (AUTO) 5.2 % (2.0-12.0); NEUTROPHILS # (AUTO) 14.2 K/uL (1.8-8.9); NEUTROPHILS % (AUTO) 79.7 % (43.0-81.0); PLATELET COUNT (AUTO) 80 K/uL (150-450); RED BLOOD CELL COUNT(AUTO) 2.77 MIL/uL (4.5-6.0); WHITE BLOOD COUNT (AUTO) 17.8 K/uL (4.3-11.0)
[2020-11-19] MEDS ORDERED: ENOXAPARIN SODIUM 40 MG/0.4 ML DISP.SYRIN SQ SCH (22:30)
[2020-11-19 22:51] LABS: BAND % (MANUAL) 17 % (0.0-5.0); EOSINOPHILS % (MANUAL) 1 % (0-4); LYMPHOCYTES % (MANUAL) 18 % (16-48); MONOCYTES % (MANUAL) 3 % (0-11.0); NEUTROPHILS % (MANUAL) 61 (42-76)
[2020-11-20 04:00] VITALS: BP 108/46
[2020-11-20] MEDS: ACETAMINOPHEN 325 MG TABLET PO PRN (04:37)
[2020-11-20 06:42] LABS: BASOPHILS % (AUTO) 0.2 % (0.0-2.0); EOSINOPHILS % (AUTO) 0.7 % (0.0-6.0); HEMATOCRIT 25 % (39-51); HEMOGLOBIN 8.3 g/dL (13.5-17.5); LYMPHOCYTES % (AUTO) 17.8 % (20.0-44.0); MEAN CORPUSCULAR HGB CONC 34 g/dl (31.0-36.0); MEAN CORPUSCULAR VOLUME 96 fL (80-96); MONOCYTES # (AUTO) 0.7 K/uL (0.1-1.30); MONOCYTES % (AUTO) 6.3 % (2.0-12.0); NEUTROPHILS # (AUTO) 8.3 K/uL (1.8-8.9); PLATELET COUNT (AUTO) 72 K/uL (150-450); RED BLOOD CELL COUNT(AUTO) 2.58 MIL/uL (4.5-6.0)
--- NOTE | 2020-11-20 06:57 | NUR ---
RN NOTE PATIENT IN BED RESTING WITH HOB ELEVATED. ALERT AND ORIENTED X3-4. ON 3L O2 VIA NASAL CANNULA, O2 SAT >95%. IV ACCESS RIGHT FOREARM #20 PATENT AND INTACT. ALL DUE MEDS GIVEN ORDERED AND TOLERATED WELL. KEPT CLEAN AND DRY, TOLERATED BED BATH WELL. BED LOCKED AND IN LOWEST POSITION. CALL LIGHT WITHIN REACH. WILL ENDORSE TO AM SHIFT.
[2020-11-20 07:43] LABS: CALCIUM, SERUM 8.8 mg/dL (8.5-10.1); CREATININE 1.1 mg/dL (0.6-1.3); POTASSIUM 5.3 mmol/L (3.5-5.1)
[2020-11-20 08:00] VITALS: BP 119/75
[2020-11-20] MEDS: ENSURE ENLIVE CHOC 237 ML CAN PO SCH ×2 (08:00→16:43)
[2020-11-20] MEDS: CLOTRIMAZOLE 1% 15 GM TUBE TP SCH ×2 (09:00→16:43)
[2020-11-20] MEDS: DORZOLAMIDE OPTH 2% 10 ML BOTTLE EACHEYE SCH ×3 (09:00→16:43)
[2020-11-20] MEDS: Z GUARD REMEDY 2 OZ OINT TP SCH (09:00)
[2020-11-20] MEDS: TIMOLOL 0.5% SOLN OPHTH 5 ML BOTTLE EACHEYE SCH (09:00)
[2020-11-20] MEDS: DOCUSATE SODIUM 100 MG CAPSULE PO SCH ×2 (09:25→16:43)
[2020-11-20] MEDS: LEVOTHYROXINE SODIUM 25 MCG TABLET PO SCH (09:25)
[2020-11-20] MEDS: FINASTERIDE (5 MG) 5 MG TABLET PO SCH (09:25)
[2020-11-20] MEDS: MULTIVIT W/MINERALS 1 TAB TABLET PO SCH (09:25)
[2020-11-20] MEDS: PANTOPRAZOLE 40 MG TABLET.DR PO SCH (09:25)
[2020-11-20] MEDS: ALLOPURINOL 100 MG TABLET PO SCH (09:25)
[2020-11-20] MEDS: SPIRONOLACTONE 25 MG TABLET PO SCH (09:25)
[2020-11-20] MEDS: FUROSEMIDE 40 MG TABLET PO SCH (09:25)
[2020-11-20] MEDS: FOLIC ACID 1 MG TABLET PO SCH (09:25)
[2020-11-20] MEDS: MEROPENEM 500 MG in IV NS 0.9% 50 ML IV SCH ×2 (09:25→21:19)
[2020-11-20] MEDS: METOCLOPRAMIDE HCL 10 MG/2 ML VIAL IV SCH (09:26)
[2020-11-20] MEDS ORDERED: FUROSEMIDE 20 MG/2 ML VIAL IV ONE ×2 (10:00→12:30)
[2020-11-20] MEDS: APIXABAN 2.5 MG TABLET PO SCH ×2 (12:26→17:29)
[2020-11-20] MEDS ORDERED: IPRATROPIUM NEB FS 0.5 MG/2.5 ML AMPUL.NEB NEB PRN (14:00)
[2020-11-20] MEDS ORDERED: ALBUTEROL FS 2.5 MG/0.5 ML VIAL.NEB NEB PRN (14:00)
[2020-11-20 16:00] VITALS: BP 114/68
[2020-11-20] MEDS: VANCOMYCIN 0.75 GM in IV D5W 250 ML IV SCH (16:42)
--- NOTE | 2020-11-20 19:30 | NUR ---
RN NOTE RECEIVED PATIENT IN BED. A/OX4. ON OXYGEN 3L/MIN VIA NASAL CANNULA. RESPIRATIONS ARE EVEN AND UNLABORED. NO S/S SOB NOTED. NO C/O PAIN AT THIS TIME. IN NO APPARENT DISTRESS. IV ACCESS IN JUAN ALBERTO MIDLINE AND RFA#20 PATENT AND SALINE LOCKED. BED IS LOW AND LOCKED, HOB ELEVATED IN SEMI FOWLERS, SIDE RAILS UP X2, CALL LIGHT WITHIN REACH. WILL CONTINUE TO MONITOR THROUGHOUT SHIFT.
--- NOTE | 2020-11-20 19:32 | NUR ---
RN CLOSING NOTES Patient is alert and oriented. On 3 liters 02 via n/c with 02 sat of 98 %. right upper arm midline , intact and patent, midline was changed during shift due to previous being occluded, MD Lovett orders. No c/o pain or discomfort. HOB kept elevated. Patient c/o left nostril being clogged. Patient provided breathing tx. MD Lovett made aware and received orders to change albuterol and atrovent to q2h and then also have around the clock q4h for atrovent and ipratropium. Orders noted and carried out. RT aware. Patient was in good stable condition during shift. Vitals WNL. No c/o sob. Meal intake of 40 % for breakfast , lunch and dinner. Endorsed to next shift for CALIN.
[2020-11-20] MEDS: ALBUTEROL FS 2.5 MG/0.5 ML VIAL.NEB NEB SCH (19:55)
[2020-11-20] MEDS: IPRATROPIUM NEB FS 0.5 MG/2.5 ML AMPUL.NEB NEB SCH (19:55)
[2020-11-20 20:00] VITALS: BP 118/38
[2020-11-20] MEDS: LATANOPROST EYE DROP 0.005% 2.5 ML BOTTLE EACHEYE SCH (21:20)
[2020-11-20] MEDS: TAMSULOSIN 0.4 MG CAP.SR.24H PO SCH (21:20)
[2020-11-20] MEDS: ATORVASTATIN 40 MG TABLET PO SCH (21:20)
[2020-11-21] MEDS: HYDROCODONE/APAP 5/325MG TABLET PO PRN (00:02)
[2020-11-21 04:00] VITALS: BP 117/22
[2020-11-21] MEDS: ACETAMINOPHEN 325 MG TABLET PO PRN ×2 (04:46→23:26)
[2020-11-21 06:13] LABS: CALCIUM, SERUM 8.3 mg/dL (8.5-10.1); CREATININE 1.1 mg/dL (0.6-1.3); POTASSIUM 5.1 mmol/L (3.5-5.1)
[2020-11-21 06:16] LABS: BASOPHILS % (AUTO) 0.3 % (0.0-2.0); HEMATOCRIT 23 % (39-51); HEMOGLOBIN 7.8 g/dL (13.5-17.5); LYMPHOCYTES # (AUTO) 1.9 K/uL (0.8-4.8); LYMPHOCYTES % (AUTO) 25.5 % (20.0-44.0); MEAN CORPUSCULAR HGB CONC 34 g/dl (31.0-36.0); MEAN CORPUSCULAR VOLUME 98 fL (80-96); MONOCYTES # (AUTO) 0.5 K/uL (0.1-1.30); MONOCYTES % (AUTO) 6.6 % (2.0-12.0); NEUTROPHILS # (AUTO) 4.8 K/uL (1.8-8.9); NEUTROPHILS % (AUTO) 66.6 % (43.0-81.0); PLATELET COUNT (AUTO) 73 K/uL (150-450); WHITE BLOOD COUNT (AUTO) 7.3 K/uL (4.3-11.0)
--- NOTE | 2020-11-21 07:00 | NUR ---
RN NOTE PATIENT RESTING IN BED. A/OX4. REMAINS ON OXYGEN 3L/MIN VIA NASAL CANNULA. NO RESP DISTRESS. PAIN MANAGED WITH NORCO AND TYLENOL. NO DISTRESS. IV IN JUAN ALBERTO MIDLINE. BED REMAINS LOW AND LOCKED, HOB ELEVATED IN SEMI FOWLERS, SIDE RAILS UP X2, CALL LIGHT WITHIN REACH. WILL ENDORSE TO ONCOMING SHIFT.
--- NOTE | 2020-11-21 07:24 | NUR ---
RN OPENING NOTE RECEIVED PATIENT RESTING IN BED. PATIENT IS A/O X4. PATIENT IS BREATHING EVENLY AND NONLABORED ON ROOM AIR. NO SIGNS OF DISTRESS NOTED PATIENT DOES NOT COMPLAIN OF PAIN AT THIS TIME. PATIENT HAS IV ACCESS ON JUAN ALBERTO MIDLINE, PATENT AND INTACT. SAFETY MEASURES ARE IN PLACE BED LOW LOCKED CALL LIGHT WITHIN REACH. WILL CONTINUE TO MONITOR
[2020-11-21] MEDS: ENSURE ENLIVE CHOC 237 ML CAN PO SCH ×2 (08:00→16:08)
[2020-11-21] MEDS: PANTOPRAZOLE 40 MG TABLET.DR PO SCH (08:17)
[2020-11-21] MEDS: LEVOTHYROXINE SODIUM 25 MCG TABLET PO SCH (08:17)
[2020-11-21] MEDS: MULTIVIT W/MINERALS 1 TAB TABLET PO SCH (08:18)
[2020-11-21] MEDS: FINASTERIDE (5 MG) 5 MG TABLET PO SCH (08:18)
[2020-11-21] MEDS: ALLOPURINOL 100 MG TABLET PO SCH (08:18)
[2020-11-21] MEDS: DOCUSATE SODIUM 100 MG CAPSULE PO SCH ×2 (08:18→16:05)
[2020-11-21] MEDS: CLOTRIMAZOLE 1% 15 GM TUBE TP SCH ×2 (08:19→16:08)
[2020-11-21] MEDS: Z GUARD REMEDY 2 OZ OINT TP SCH (08:19)
[2020-11-21] MEDS: TIMOLOL 0.5% SOLN OPHTH 5 ML BOTTLE EACHEYE SCH (08:23)
[2020-11-21] MEDS: MEROPENEM 500 MG in IV NS 0.9% 50 ML IV SCH ×2 (08:23→20:56)
[2020-11-21] MEDS: DORZOLAMIDE OPTH 2% 10 ML BOTTLE EACHEYE SCH ×3 (08:23→16:08)
[2020-11-21] MEDS: ALBUTEROL FS 2.5 MG/0.5 ML VIAL.NEB NEB SCH ×4 (08:27→20:14)
[2020-11-21] MEDS: IPRATROPIUM NEB FS 0.5 MG/2.5 ML AMPUL.NEB NEB SCH ×4 (08:27→20:14)
[2020-11-21] MEDS: APIXABAN 2.5 MG TABLET PO SCH ×2 (08:28→16:06)
[2020-11-21] MEDS: FOLIC ACID 1 MG TABLET PO SCH (08:31)
[2020-11-21 09:13] VITALS: BP 120/76
[2020-11-21] MEDS: FUROSEMIDE 40 MG TABLET PO SCH (11:58)
--- NOTE | 2020-11-21 12:00 | NUR ---
RN NOTE MD NOTIFIED OF SODIUM 128. CONTINUE LASIX PER MD. WILL CONTINUE TO MONITOR
[2020-11-21] MEDS: VANCOMYCIN 0.75 GM in IV D5W 250 ML IV SCH (16:05)
[2020-11-21 16:23] VITALS: BP 126/80
--- NOTE | 2020-11-21 18:22 | NUR ---
RN CLOSING NOTE PATIENT RESTING IN BED. PATIENT IS A/O X4. PATIENT IS BREATHING EVENLY AND NONLABORED ON 3 LITERS VIA NASAL CANNULA. NO SIGNS OF DISTRESS NOTED PATIENT DOES NOT COMPLAIN OF PAIN AT THIS TIME. PATIENT HAS IV ACCESS ON JUAN ALBERTO MIDLINE, PATENT AND INTACT. ALL MEDICATIONS GIVEN ORDERED. WOUND TREATMENT PERFORMED DURING SHIFT. SAFETY MEASURES ARE IN PLACE BED LOW LOCKED CALL LIGHT WITHIN REACH. WILL ENDORSE TO ONCOMING SHIFT
--- NOTE | 2020-11-21 20:00 | NUR ---
RN OPENING NOTE PATIENT IN BED AWAKE, ABLE TO MAKE NEEDS KNOWN. PATIENT'S BREATHING EVEN AND UNLABORED. CURRENTLY ON 3 L OF OXYGEN SUPPLEMENTATION. DOES NOT COMPLAIN OF ANY PAIN AT THIS TIME. PATIENT HAS A DRESSING PRESENT ON THE LEFT FOREARM, BRUISING NOTED ON BOTH ARMS. PATIENT HAS A JUAN ALBERTO MIDLINE, PATENT AND INTACT. SAFETY MEASURES IN PLACE: BED IN LOCKED AND LOWEST POSITION, CALL LIGHT WITHIN REACH, SIDE RAILS UP. WILL MONITOR PATIENT CLOSELY.
--- NOTE | 2020-11-21 20:50 | NUR ---
RN NOTES PATIENT REFUSED 2100 MEDS. SHE STATES "DO YOU THINK IM SOME KIND OF CRACKHEAD? IM NOT TAKING MY MEDICATIONS TONIGHT". I STARTED EXPLAINING TO HER WHAT MEDICATIONS I'M GIVING AND THEIR PURPOSE, SHE SAYS "STOP IM NOT TAKING THEM". WILL CONTINUE TO MONITOR. Addendum: 11/22/20 at 0219 by JAMIE BARRON RN DISREGARD WRONG PATIENT
[2020-11-21] MEDS: TAMSULOSIN 0.4 MG CAP.SR.24H PO SCH (21:10)
[2020-11-21] MEDS: ATORVASTATIN 40 MG TABLET PO SCH (21:11)
[2020-11-21] MEDS: LATANOPROST EYE DROP 0.005% 2.5 ML BOTTLE EACHEYE SCH (21:11)
[2020-11-22] VITALS: BP 124/57
[2020-11-22 06:46] LABS: BASOPHILS % (AUTO) 0.4 % (0.0-2.0); EOSINOPHILS % (AUTO) 2.4 % (0.0-6.0); HEMATOCRIT 23 % (39-51); HEMOGLOBIN 7.6 g/dL (13.5-17.5); LYMPHOCYTES # (AUTO) 1.4 K/uL (0.8-4.8); MEAN CORPUSCULAR HGB CONC 34 g/dl (31.0-36.0); MEAN CORPUSCULAR VOLUME 95 fL (80-96); MONOCYTES # (AUTO) 0.5 K/uL (0.1-1.30); MONOCYTES % (AUTO) 10.3 % (2.0-12.0); NEUTROPHILS # (AUTO) 2.6 K/uL (1.8-8.9); NEUTROPHILS % (AUTO) 56.9 % (43.0-81.0); PLATELET COUNT (AUTO) 71 K/uL (150-450); RED BLOOD CELL COUNT(AUTO) 2.38 MIL/uL (4.5-6.0); WHITE BLOOD COUNT (AUTO) 4.6 K/uL (4.3-11.0)
--- NOTE | 2020-11-22 07:25 | NUR ---
RN CLOSING NOTE PATIENT IN BED, EYES CLOSED, EASILY AWAKENED. A/O X 4. PATIENT ABLE TO MAKE NEEDS KNOWN. NOT IN ANY APPARENT DISTRESS. PATIENT STILL ON 3 L OF OXYGEN SUPPLEMENTATION. WOUND CARE PROVIDED. TYLENOL GIVEN FOR HEADACHE DURING THE SHIFT. JUAN ALBERTO MIDLINE PATENT AND INTACT. SAFETY MEASURES MAINTAINED. ALL ORDERS CARRIED OUT. ALL NEEDS MET AND ATTENDED. ENDORSED TO DAY SHIFT NURSE FOR CALIN.
--- NOTE | 2020-11-22 07:30 | NUR ---
RN NOTES SEEN IN BED RESTING, AWAKE AND VERBALLY RESPONSIVE. A/O X3, ISRAELI-SPEAKING BUT UNDERSTANDS TRISTANIAN, ABLE TO MAKE NEEDS KNOWN. BREATHING EVEN AND UNLABORED, CURRENTLY ON O2 AT 3LPM VIA NC, NO RESPIRATORY DISTRESS. JUAN ALBERTO MIDLINE INTACT AND PATENT. SAFETY MEASURES IN PLACE. WILL CONTINUE TO MONITOR.
[2020-11-22 07:31] LABS: ALBUMIN 2.6 g/dL (3.4-5.0); BILIRUBIN,TOTAL 0.5 mg/dL (0.2-1.0); CALCIUM, SERUM 8.5 mg/dL (8.5-10.1); MAGNESIUM 2.3 mg/dL (1.8-2.4); PHOSPHORUS 3.4 mg/dL (2.5-4.9); POTASSIUM 4.9 mmol/L (3.5-5.1); TOTAL PROTEIN, SERUM 7.7 g/dL (6.4-8.2)
[2020-11-22] MEDS: ACETAMINOPHEN 325 MG TABLET PO PRN (07:43)
[2020-11-22] MEDS: LEVOTHYROXINE SODIUM 25 MCG TABLET PO SCH (07:43)
[2020-11-22] MEDS: PANTOPRAZOLE 40 MG TABLET.DR PO SCH (07:43)
[2020-11-22] MEDS: ALBUTEROL FS 2.5 MG/0.5 ML VIAL.NEB NEB SCH ×4 (07:45→20:10)
[2020-11-22] MEDS: IPRATROPIUM NEB FS 0.5 MG/2.5 ML AMPUL.NEB NEB SCH ×4 (07:45→20:10)
[2020-11-22] MEDS: ENSURE ENLIVE CHOC 237 ML CAN PO SCH ×2 (07:49→16:46)
[2020-11-22 08:00] VITALS: BP_SYST 117; BP_DIAS 46; BP_DIAS 56
[2020-11-22] MEDS: APIXABAN 2.5 MG TABLET PO SCH ×3 (09:00→16:33)
[2020-11-22] MEDS: DOCUSATE SODIUM 100 MG CAPSULE PO SCH ×2 (09:11→16:32)
[2020-11-22] MEDS: FINASTERIDE (5 MG) 5 MG TABLET PO SCH (09:12)
[2020-11-22] MEDS: FOLIC ACID 1 MG TABLET PO SCH (09:12)
[2020-11-22] MEDS: FUROSEMIDE 40 MG TABLET PO SCH (09:12)
[2020-11-22] MEDS: ALLOPURINOL 100 MG TABLET PO SCH (09:12)
[2020-11-22] MEDS: DORZOLAMIDE OPTH 2% 10 ML BOTTLE EACHEYE SCH ×3 (09:12→16:34)
[2020-11-22] MEDS: MULTIVIT W/MINERALS 1 TAB TABLET PO SCH (09:12)
[2020-11-22] MEDS: TIMOLOL 0.5% SOLN OPHTH 5 ML BOTTLE EACHEYE SCH (09:14)
[2020-11-22] MEDS: CLOTRIMAZOLE 1% 15 GM TUBE TP SCH ×2 (09:15→16:34)
[2020-11-22] MEDS: Z GUARD REMEDY 2 OZ OINT TP SCH (09:15)
[2020-11-22] MEDS: MEROPENEM 500 MG in IV NS 0.9% 50 ML IV SCH ×2 (09:15→21:53)
--- NOTE | 2020-11-22 10:46 | NUR ---
RN NOTES PATIENT WAS SEEN BY LEONEL REAL GOLF BALL MOLDER; INFORMED ABOUT PATIENT UNABLE TO TOLERATE BONE SCAN ON 11/19. PER GOLF BALL MOLDER, MAY DO THE BONE SCAN WHEN PATIENT ABLE TO TOLERATE PROCEDURE AND DEPENDING ON PRIMARY MD'S PLAN.
--- NOTE | 2020-11-22 11:04 | NUR ---
Radiology attempted numerous times to do exam, but patient in tremendous pain and refused all week. We will attempt again if patient aggress. Please call [phone] when ready.
--- NOTE | 2020-11-22 14:11 | NUR ---
RN NOTES PATIENT REPORT GIVEN TO TABATHA QUEVEDO.
--- NOTE | 2020-11-22 14:44 | NUR ---
RN NOTES PATIENT TRANSFERRED TO ROOM 322-2 VIA PATIENT'S OWN BED ACCOMPANIED BY 2 NURSES. ENDORSED MEDS AND PATIENT REPORT TO TABATHA QUEVEDO.
--- NOTE | 2020-11-22 14:45 | NUR ---
RN NOTE PT TRANSFERRED OVER TO [facility]-2 IN STABLE CONDITION. PT AWAKE AND ALERT. WILL CONTINUE TO MONITOR.
[2020-11-22 16:00] VITALS: BP 119/46
[2020-11-22] MEDS: VANCOMYCIN 0.75 GM in IV D5W 250 ML IV SCH (16:35)
[2020-11-22 17:17] VITALS: BP 119/46
--- NOTE | 2020-11-22 18:04 | NUR ---
RN CLOSING NOTE PT AWAKE IN BED WATCHING TELEVISION. ON 3L NC WITH NO SOB OR RESPIRATORY DISTRESS PRESENT. O2 SAT >95%. A/O X3 AND UNDERSTANDS TELUGU. NO COMPLAINT OF PAIN OR NAUSEA PRESENT. NO ROOTER OPERATOR. NO EDEMA. ON BEDREST WITH URINAL AT BESIDE. L ARM WOUND AND SACRAL WOUND PRESENT. WOUND CARE ORDERED. ON MECHANICAL SOFT DIET. MIDLINE PRESENT ON JUAN ALBERTO AND FLUSHES WELL. ROUTINE MEDS GIVEN. LABS AND ORDERS REVIEWED. SAFETY MEASURES IN PLACE. SIDE RAILS RAISED. BED LOWERED. CALL LIGHT WITHIN REACH. WILL GIVE REPORT TO NIGHT NURSE FOR CALIN.
--- NOTE | 2020-11-22 19:11 | NUR ---
CONTINUITY OF CARE Patient sitting up in bed, awake, A/o X3. On Oxygen support 3L via NC, denies sob. Patient is on IV Merrem, JUAN ALBERTO midline intact. Repositioned in bed, no c/o pain. Fall precaution maintained, call light within reach.
[2020-11-22 20:00] VITALS: BP 123/50
--- NOTE | 2020-11-22 20:47 | NUR ---
TRANSFERRED OF CARE Care endorsed to TABATHA Watson for continuity of care. Patient awake, not in distress.
--- NOTE | 2020-11-22 20:50 | NUR ---
TABATHA LAYTON RECEIVED REPORT FROM FLORINA MAYS, PATIENT IS IN BED, AWAKE. PATIENT IS ABLE TO MAKE NEEDS KNOWN. DRESSING PRESSENT ON HIS LEFT FOREARM. JUAN ALBERTO MIDLINE NOTED, PATENT AND INTACCCT. PATIENT ON 3L OF OXYGEN SUPPLEMENTATION. NOT IN ANY APPARENT DISTRESS. SAFETY MEASURES IN PLACE: BED IN LOCKED AND LOWEST POSITION, CALL LIGHT WITHIN REACH, SIDE RAILS UP. WILL MONITOR PATIENT CLOSELY.
[2020-11-22] MEDS: TAMSULOSIN 0.4 MG CAP.SR.24H PO SCH (21:55)
[2020-11-22] MEDS: ATORVASTATIN 40 MG TABLET PO SCH (21:55)
[2020-11-22] MEDS: LATANOPROST EYE DROP 0.005% 2.5 ML BOTTLE EACHEYE SCH (22:00)
[2020-11-23 06:36] LABS: CALCIUM, SERUM 8.5 mg/dL (8.5-10.1); CREATININE 0.8 mg/dL (0.6-1.3); POTASSIUM 4.7 mmol/L (3.5-5.1)
--- NOTE | 2020-11-23 07:25 | NUR ---
RN CLOSING NOTE PATIENT IN BED, AWAKE. PATIENT NOT IN ANY APPARENT DISTRESS. STILL ON 3 L OF OXYGEN VIA NASAL CANNULA. SAFETY MEASURES MAINTAINED. WOUND TX RENDERED. ALL NEEDS MET AND ATTENDED. ALL ORDERS CARRIED OUT. ENDORSED TO DAY SHIFT NURSE FOR CALIN.
[2020-11-23] MEDS: IPRATROPIUM NEB FS 0.5 MG/2.5 ML AMPUL.NEB NEB SCH ×4 (07:35→19:30)
[2020-11-23] MEDS: ALBUTEROL FS 2.5 MG/0.5 ML VIAL.NEB NEB SCH ×4 (07:35→19:30)
--- NOTE | 2020-11-23 07:37 | NUR ---
MS RN OPENING NOTES RECEIVED PATIENT IN BED, AWAKE, A/O X3. PATIENT ON OXYGEN THERAPY AT 3 LMP VIA NASAL CANNULA; BREATHING EVEN AND UNLABORED. NO COMPLAINS OF PAIN AT THIS TIME. JUAN ALBERTO MIDLINE PRESENT AND INTACT; SL. SAFETY PRECAUTIONS IN PLACE; BED IN LOW POSITION AND LOCKED, RAILS UP X2, CALL LIGHT WITHIN REACH. WILL CONTINUE TO MONITOR PATIENT.
[2020-11-23] MEDS: DOCUSATE SODIUM 100 MG CAPSULE PO SCH ×2 (08:51→17:25)
[2020-11-23] MEDS: FINASTERIDE (5 MG) 5 MG TABLET PO SCH (08:52)
[2020-11-23] MEDS: LEVOTHYROXINE SODIUM 25 MCG TABLET PO SCH (08:52)
[2020-11-23] MEDS: FOLIC ACID 1 MG TABLET PO SCH (08:52)
[2020-11-23] MEDS: FUROSEMIDE 40 MG TABLET PO SCH (08:52)
[2020-11-23] MEDS: ALLOPURINOL 100 MG TABLET PO SCH (08:52)
[2020-11-23] MEDS: MULTIVIT W/MINERALS 1 TAB TABLET PO SCH (08:52)
[2020-11-23] MEDS: PANTOPRAZOLE 40 MG TABLET.DR PO SCH (08:52)
[2020-11-23] MEDS: DORZOLAMIDE OPTH 2% 10 ML BOTTLE EACHEYE SCH ×3 (08:53→17:29)
[2020-11-23] MEDS: ENSURE ENLIVE CHOC 237 ML CAN PO SCH ×2 (08:53→17:25)
[2020-11-23] MEDS: CLOTRIMAZOLE 1% 15 GM TUBE TP SCH ×2 (08:54→17:28)
[2020-11-23] MEDS: TIMOLOL 0.5% SOLN OPHTH 5 ML BOTTLE EACHEYE SCH (08:54)
[2020-11-23] MEDS: Z GUARD REMEDY 2 OZ OINT TP SCH (08:54)
[2020-11-23] MEDS: APIXABAN 2.5 MG TABLET PO SCH ×2 (08:55→17:25)
[2020-11-23] MEDS: FERROUS SULFATE (325 MG) 325 MG/TAB TABLET PO SCH (17:25)
[2020-11-23] MEDS: VANCOMYCIN 1 GM in IV D5W 250ml IV SCH (17:28)
--- NOTE | 2020-11-23 18:50 | NUR ---
MS RN CLOSING NOTES PATIENT REMAINS IN BED, AWAKE, A/O X3. PATIENT ON OXYGEN THERAPY AT 3 LMP VIA NASAL CANNULA; BREATHING EVEN AND UNLABORED DURING THE DAY. NO COMPLAINS OF PAIN DURING SHIFT. JUAN ALBERTO MIDLINE PRESENT AND INTACT; SL. ALL NEEDS ATTENDED DURING THE DAY. SAFETY PRECAUTIONS IN PLACE; BED IN LOW POSITION AND LOCKED, RAILS UP X2, CALL LIGHT WITHIN REACH. WILL ENDORSE TO SHIRT CLOSER NURSE.
--- NOTE | 2020-11-23 19:06 | NUR ---
received patient in bed alert and orientated X3 call light within his reach bed alarm on he is watching TV and eating his dinner
[2020-11-23 20:00] VITALS: BP 124/46
[2020-11-23] MEDS: LATANOPROST EYE DROP 0.005% 2.5 ML BOTTLE EACHEYE SCH (21:39)
[2020-11-23] MEDS: ATORVASTATIN 40 MG TABLET PO SCH (21:40)
[2020-11-23] MEDS: TAMSULOSIN 0.4 MG CAP.SR.24H PO SCH (21:41)
--- NOTE | 2020-11-24 04:58 | NUR ---
Mr. Anderson slept thru the night Prior him going to sleep last night I called the blood bank at 21:45 and inquired about the ordered 1 unit of PRBCs I needed tho infuse as ordered. was told that they orderedd the blood from [place] and D/T special antibioties it may take awhile, blood bank will call me when the blood has arrived. Pt made aware of the situation and told him not to wait up. settled for sleep call light within his reach uses the urinal urine yellow in color. sacral wound red cleaned as ordered and zguard applied and mepilex NO DIAPER even though he requested on explained to him how not healing this would be. no SOB this 12 hours alert and orienataed this 12 hours enjoys the company of nurses at his bedside talkative.
[2020-11-24 06:13] LABS: BASOPHILS % (AUTO) 0.3 % (0.0-2.0); EOSINOPHILS % (AUTO) 2.5 % (0.0-6.0); HEMATOCRIT 23 % (39-51); HEMOGLOBIN 7.5 g/dL (13.5-17.5); LYMPHOCYTES # (AUTO) 1.4 K/uL (0.8-4.8); LYMPHOCYTES % (AUTO) 37.1 % (20.0-44.0); MEAN CORPUSCULAR HGB CONC 33 g/dl (31.0-36.0); MEAN CORPUSCULAR VOLUME 96 fL (80-96); MONOCYTES # (AUTO) 0.5 K/uL (0.1-1.30); MONOCYTES % (AUTO) 14.7 % (2.0-12.0); NEUTROPHILS # (AUTO) 1.7 K/uL (1.8-8.9); NEUTROPHILS % (AUTO) 45.4 % (43.0-81.0); PLATELET COUNT (AUTO) 80 K/uL (150-450); RED BLOOD CELL COUNT(AUTO) 2.37 MIL/uL (4.5-6.0); WHITE BLOOD COUNT (AUTO) 3.7 K/uL (4.3-11.0)
[2020-11-24 06:30] LABS: CALCIUM, SERUM 8.6 mg/dL (8.5-10.1); CREATININE 0.9 mg/dL (0.6-1.3); POTASSIUM 4.5 mmol/L (3.5-5.1)
[2020-11-24] MEDS: ALBUTEROL FS 2.5 MG/0.5 ML VIAL.NEB NEB SCH ×4 (07:35→20:53)
[2020-11-24] MEDS: IPRATROPIUM NEB FS 0.5 MG/2.5 ML AMPUL.NEB NEB SCH ×4 (07:35→20:53)
[2020-11-24] MEDS: ENSURE ENLIVE CHOC 237 ML CAN PO SCH ×3 (08:00→17:00)
[2020-11-24] MEDS: FINASTERIDE (5 MG) 5 MG TABLET PO SCH (11:07)
[2020-11-24] MEDS: FOLIC ACID 1 MG TABLET PO SCH (11:07)
[2020-11-24] MEDS: FERROUS SULFATE (325 MG) 325 MG/TAB TABLET PO SCH ×2 (11:07→17:07)
[2020-11-24] MEDS: DOCUSATE SODIUM 100 MG CAPSULE PO SCH ×2 (11:07→17:07)
[2020-11-24] MEDS: PANTOPRAZOLE 40 MG TABLET.DR PO SCH (11:08)
[2020-11-24] MEDS: ALLOPURINOL 100 MG TABLET PO SCH (11:08)
[2020-11-24] MEDS: LEVOTHYROXINE SODIUM 25 MCG TABLET PO SCH (11:10)
[2020-11-24] MEDS: APIXABAN 2.5 MG TABLET PO SCH ×2 (11:10→17:08)
[2020-11-24] MEDS: MULTIVIT W/MINERALS 1 TAB TABLET PO SCH (11:10)
[2020-11-24] MEDS: TIMOLOL 0.5% SOLN OPHTH 5 ML BOTTLE EACHEYE SCH (11:36)
[2020-11-24] MEDS: CLOTRIMAZOLE 1% 15 GM TUBE TP SCH ×2 (11:36→17:00)
[2020-11-24] MEDS: DORZOLAMIDE OPTH 2% 10 ML BOTTLE EACHEYE SCH ×3 (11:36→17:00)
[2020-11-24] MEDS: Z GUARD REMEDY 2 OZ OINT TP SCH (11:38)
[2020-11-24 16:00] VITALS: BP 121/46
[2020-11-24 20:00] VITALS: BP 122/45
--- NOTE | 2020-11-24 20:00 | NUR ---
MS RN OPENING NOTES Patient is awake, A&Ox3. No distress noted, pt. appears comfortable. States all his needs are met at this time. Denies pain. Will reposition q2h and keep clean and dry. All safety precautions in place.
[2020-11-24] MEDS: TAMSULOSIN 0.4 MG CAP.SR.24H PO SCH (21:08)
[2020-11-24] MEDS: ATORVASTATIN 40 MG TABLET PO SCH (21:08)
[2020-11-24] MEDS: LATANOPROST EYE DROP 0.005% 2.5 ML BOTTLE EACHEYE SCH (21:08)
--- NOTE | 2020-11-24 23:00 | NUR ---
Latanoprost eye drops not in cassette or at bedside. unable to locate. Pharmacy closed. will call pharmacy in AM.
[2020-11-25] MEDS: VANCOMYCIN 1 GM in IV D5W 250ml IV SCH (04:32)
--- NOTE | 2020-11-25 05:34 | NUR ---
Patient sleeping intermittently throughout night. A&Ox3. VSS. Turn q2h, kept clean and dry. Wound treatment done to sacral area and LFA hematoma -tolerated well. No overnight events. Only minimal bleeding to LFA hematoma site other than that no signs of active bleed. JUAN ALBERTO midline flushed and patent.
--- NOTE | 2020-11-25 06:45 | NUR ---
pharmacy called about latanoprost eye drops. stated they will bring a new bottle.
--- NOTE | 2020-11-25 07:08 | NUR ---
MS RN OPENING NOTES RECEIVE PT AWAKE IN BED AT THIS TIME. AOX4. ABLE TO COMMUNICATE NEEDS. NO SOB NOTED, NO S/O OF ANY ACUTE DISTRESS NOTED, NO C/O PAIN AT THIS TIME. NOTED WITH MULTIPLE SKIN ISSUES. JUAN ALBERTO MIDLINE, INTACT, PATENT AND FLUSHING WELL. SAFETY PRECAUTIONS IN PLACE AND MAINTAINED AT ALL TIMES. BED IN LOWEST LOCKED POSITION, HOB ELEVATED, SIDE RAILS UP X2, CALL LIGHT AND TABLE WITHIN REACH. WILL CONTINUE TO MONITOR
[2020-11-25] MEDS: IPRATROPIUM NEB FS 0.5 MG/2.5 ML AMPUL.NEB NEB SCH ×3 (07:35→15:30)
[2020-11-25] MEDS: ALBUTEROL FS 2.5 MG/0.5 ML VIAL.NEB NEB SCH ×3 (07:35→15:30)
[2020-11-25 08:19] VITALS: BP 120/44
[2020-11-25] MEDS: LEVOTHYROXINE SODIUM 25 MCG TABLET PO SCH (08:27)
[2020-11-25] MEDS: PANTOPRAZOLE 40 MG TABLET.DR PO SCH (08:27)
[2020-11-25] MEDS: ENSURE ENLIVE CHOC 237 ML CAN PO SCH (08:28)
[2020-11-25] MEDS: DORZOLAMIDE OPTH 2% 10 ML BOTTLE EACHEYE SCH ×2 (08:29→13:47)
[2020-11-25] MEDS: TIMOLOL 0.5% SOLN OPHTH 5 ML BOTTLE EACHEYE SCH (08:29)
[2020-11-25] MEDS: DOCUSATE SODIUM 100 MG CAPSULE PO SCH (08:32)
[2020-11-25] MEDS: MULTIVIT W/MINERALS 1 TAB TABLET PO SCH (08:32)
[2020-11-25] MEDS: FERROUS SULFATE (325 MG) 325 MG/TAB TABLET PO SCH (08:32)
[2020-11-25] MEDS: FOLIC ACID 1 MG TABLET PO SCH (08:32)
[2020-11-25] MEDS: FINASTERIDE (5 MG) 5 MG TABLET PO SCH (08:32)
[2020-11-25] MEDS: ALLOPURINOL 100 MG TABLET PO SCH (08:32)
[2020-11-25] MEDS: APIXABAN 2.5 MG TABLET PO SCH (08:35)
[2020-11-25] MEDS: CLOTRIMAZOLE 1% 15 GM TUBE TP SCH (09:13)
[2020-11-25] MEDS: Z GUARD REMEDY 2 OZ OINT TP SCH (09:14)
[2020-11-25] MEDS ORDERED: FUROSEMIDE 20 MG/2 ML VIAL IV ONE (10:30)
[2020-11-25 16:08] VITALS: BP 109/50
--- NOTE | 2020-11-25 16:30 | NUR ---
ROAD OILER NOTE PT DISCHARGE [facility] AT THIS TIME. REPORT CALLED IN TO EDWARD @ [facility]. PT MEDICALLY STABLE AND CLEARED FOR DISCHARGE BY DR FORBES. ALL DISCHARGE INSTRUCTIONS PROVIDED TO PT. PT KEPT CLEAN AND DRY. ALL BELONGINGS ACCOUNTED FOR, SIGNED BY PATIENT AND WITH PATIENT. IV ACCESS REMOVED, PRESSURE APPLIED, SECURED WITH GAUZE AND TAPE, NO SIGN OF BLEEDING OR INFILTRATION NOTED. ID BAND REMOVED. PT LEFT UNIT IN STABLE CONDITION, TRANSPORTED BY AMBULANCE AND TWO AMBULANCE PERSONNEL. REN, CHARGE NURSE AND DR FORBES AWARE
== END 2020-11-25 16:20 | DRG 280 ==
LOC: ER 23:54 → TELE1 11-13 01:47 → MEDSG1 11-16 08:23 → MED 11-22 14:36
PROVIDERS: ADMIT Internal Medicine; ATTEND Internal Medicine
PROC: 05H533Z Insertion of Infusion Device into Right Subclavian Vein, Percutaneous Approach (ICD-10-PCS; 2020-11-17)
PROC: B546ZZA Ultrasonography of Right Subclavian Vein, Guidance (ICD-10-PCS; 2020-11-17)
PROC: 07DR3ZX Extraction of Iliac Bone Marrow, Percutaneous Approach, Diagnostic (ICD-10-PCS; principal; 2020-11-19)
PROC: 05H533Z Insertion of Infusion Device into Right Subclavian Vein, Percutaneous Approach (ICD-10-PCS; 2020-11-20)
PROC: B546ZZA Ultrasonography of Right Subclavian Vein, Guidance (ICD-10-PCS; 2020-11-20)
DX: I21.4 Non-ST elevation (NSTEMI) myocardial infarction (principal); J69.0 Pneumonitis due to inhalation of food and vomit; J96.01 Acute respiratory failure with hypoxia; I13.0 Hypertensive heart and chronic kidney disease with heart failure and stage 1 through stage 4 chronic kidney disease, or unspecified chronic kidney disease; E46 Unspecified protein-calorie malnutrition; E87.1 Hypo-osmolality and hyponatremia; D61.818 Other pancytopenia; I48.92 Unspecified atrial flutter; J98.11 Atelectasis; N39.0 Urinary tract infection, site not specified; R64 Cachexia; D68.9 Coagulation defect, unspecified; Z98.61 Coronary angioplasty status; Z95.0 Presence of cardiac pacemaker; I48.91 Unspecified atrial fibrillation; D47.2 Monoclonal gammopathy; I25.10 Atherosclerotic heart disease of native coronary artery without angina pectoris; Z90.49 Acquired absence of other specified parts of digestive tract; D63.8 Anemia in other chronic diseases classified elsewhere; B96.5 Pseudomonas (aeruginosa) (mallei) (pseudomallei) as the cause of diseases classified elsewhere; D50.9 Iron deficiency anemia, unspecified; E78.5 Hyperlipidemia, unspecified; E87.5 Hyperkalemia; H40.9 Unspecified glaucoma; E03.9 Hypothyroidism, unspecified; Z20.822 Contact with and (suspected) exposure to COVID-19; K74.60 Unspecified cirrhosis of liver; N40.0 Benign prostatic hyperplasia without lower urinary tract symptoms; K76.0 Fatty (change of) liver, not elsewhere classified; K80.20 Calculus of gallbladder without cholecystitis without obstruction; I48.0 Paroxysmal atrial fibrillation; I35.0 Nonrheumatic aortic (valve) stenosis; Z95.2 Presence of prosthetic heart valve; Z68.22 Body mass index [BMI] 22.0-22.9, adult; I73.9 Peripheral vascular disease, unspecified; R16.1 Splenomegaly, not elsewhere classified; N40.1 Benign prostatic hyperplasia with lower urinary tract symptoms; S50.12XA Contusion of left forearm, initial encounter; X58.XXXA Exposure to other specified factors, initial encounter; Y93.9 Activity, unspecified; Z74.01 Bed confinement status; M1A.9XX1 Chronic gout, unspecified, with tophus (tophi); L89.159 Pressure ulcer of sacral region, unspecified stage; I50.9 Heart failure, unspecified; B95.62 Methicillin resistant Staphylococcus aureus infection as the cause of diseases classified elsewhere; Z79.899 Other long term (current) drug therapy; Z79.01 Long term (current) use of anticoagulants; Y92.230 Patient room in hospital as the place of occurrence of the external cause
CPT/HCPCS: 36410; 36415; 71045-TC; 76604-TC; 76700-TC; 77075-TC; 80048-TC; 80053-TC; 80061-TC; 80076-TC; 80202-TC; 81001; 82105; 82232; 82728-TC; 82784; 83540-TC; 83605-TC; 83735-TC; 83880; 84100-TC; 84155; 84165; 84439-TC; 84443-TC; 84484-TC; 84550-TC; 85025-TC; 85027-TC; 85610-TC; 85730-TC; 86140-TC; 86225; 86235; 86334; 86431-TC; 86706; 86803; 86850-TC; 86880-TC; 87040-TC; 87070-TC; 87081-TC; 87086-TC; 87186-TC; 87340; 92521; 92526; 93307-TC; 94799-TC; A6403; C9803; G0378; J0692; J0696; J1442; J1644; J1650; J1940; J2185; J2270; J2765; J3370; J3490; J7040; J7050; J7060; U0003

== ENCOUNTER 2020-12-11 11:17 | Inpatient (IN) | payer MEDICARE, OTHER ==
[~2020-12-11] VITALS: Ht 172.7 cm; Wt 66.8 kg
[~2020-12-11 11:17] MED LIST: ACET-868 PO; APIX2.5T PO; ASCO-352 PO; BISA10SU11 RC; BRIN10DR EACHEYE; DICL20GE TD; DOCU-141 PO; FERR325T23 PO; FINA5TAB4 PO; FURO-145 PO; GUAI100S11 PO; HYDR-4303 PO; IPRA3AMP23 IH; LATA2.5D15 EACHEYE; LEVO25TA7 PO; MAGN400O6 PO; MULT-447 PO; NA P133E RC; NITR0.4T48 SL; PANT40TA49 PO; SPIR25TA PO; TAMS-12 PO; TIMO5DRO35 EACHEYE
--- NOTE | 2020-12-11 11:30 | NUR ---
[facility] "CHILLS" X TODAY. CHEST PAIN EN ROUTE. PATIENT A/OX4, BREATHING EVEN AND UNLABORED, C/O MILD CHEST PAIN, PT STS HE'S FEELING "CHILLS" BECAUSE HE'S COLD. PATIENT PROVIDED WITH WARM BLANKET.
--- NOTE | 2020-12-11 11:45 | NUR ---
IV LINE ESTABLISHED ON RFA G20, BLOOD DRAWN AND SENT TO LAB.
[2020-12-11] MEDS ORDERED: POVI3780 TP (11:49)
[2020-12-11] MEDS ORDERED: EPOE1VIA12 SQ (11:49)
[2020-12-11] MEDS ORDERED: ZINC220C6 PO (11:49)
[2020-12-11] MEDS ORDERED: ONDA4TAB5 PO (11:49)
[2020-12-11] MEDS ORDERED: ALLO100T PO (11:49)
[2020-12-11] MEDS ORDERED: GUAI-671 PO (11:49)
[2020-12-11] MEDS ORDERED: ATOR40TA PO (11:49)
[2020-12-11] MEDS ORDERED: FOLI0.4T6 PO (11:49)
[2020-12-11] MEDS ORDERED: DORZ10DR10 EACHEYE (11:49)
[2020-12-11 11:55] LABS: BASOPHILS % (AUTO) 0.5 % (0.0-2.0); EOSINOPHILS % (AUTO) 1.5 % (0.0-6.0); HEMATOCRIT 24 % (39-51); HEMOGLOBIN 7.6 g/dL (13.5-17.5); LYMPHOCYTES # (AUTO) 1.2 K/uL (0.8-4.8); MEAN CORPUSCULAR HGB CONC 32 g/dl (31.0-36.0); MEAN CORPUSCULAR VOLUME 99 fL (80-96); MONOCYTES # (AUTO) 0.4 K/uL (0.1-1.30); MONOCYTES % (AUTO) 11.7 % (2.0-12.0); NEUTROPHILS # (AUTO) 1.4 K/uL (1.8-8.9); NEUTROPHILS % (AUTO) 47.3 % (43.0-81.0); PLATELET COUNT (AUTO) 88 K/uL (150-450); RED BLOOD CELL COUNT(AUTO) 2.42 MIL/uL (4.5-6.0)
[2020-12-11] MEDS ORDERED: [UNRECOGNIZED DRUG - CODE] PO (11:55)
[2020-12-11] MEDS ORDERED: NEOM1OIN15 TP (11:55)
[2020-12-11] MEDS ORDERED: MENT71OI2 TP (11:55)
[2020-12-11] MEDS ORDERED: MEDI HONEY TD (11:55)
[2020-12-11] MEDS ORDERED: ZINC56.713 TP (11:55)
[2020-12-11 11:56] LABS: CALCIUM, SERUM 8.5 mg/dL (8.5-10.1); CREATININE 0.9 mg/dL (0.6-1.3); POTASSIUM 4.3 mmol/L (3.5-5.1)
--- NOTE | 2020-12-11 12:16 | NUR ---
TROPONIN AND BNP ELEVATED, DR. NOEL MADE AWARE
--- NOTE | 2020-12-11 12:25 | NUR ---
move sheet turned into admitting
--- NOTE | 2020-12-11 12:45 | NUR ---
CALLED DR. FORBES. HE WILL BE PAGED TO CALL BACK.
[2020-12-11 12:53] LABS: BAND % (MANUAL) 2 % (0.0-5.0); LYMPHOCYTES % (MANUAL) 42 % (16-48); MONOCYTES % (MANUAL) 12 % (0-11.0); NEUTROPHILS % (MANUAL) 44 (42-76)
--- NOTE | 2020-12-11 13:15 | NUR ---
BED 103. PATIENT IS ACCEPTED BY DR. FORBES.
[2020-12-11] MEDS ORDERED: FUROSEMIDE 20 MG/2 ML VIAL ONE (13:21)
[2020-12-11] MEDS ORDERED: CEFTRIAXONE 1GM BAG (ER ONLY) 50 ML IV ONE (13:21)
--- NOTE | 2020-12-11 13:29 | NUR ---
REPORT GIVEN TO NURSE COFFEY
[2020-12-11] MEDS ORDERED: CEFTRIAXONE 1GM BAG (ER ONLY) 1 GM/50 ML PIGGYBACK IV ONE (13:30)
[2020-12-11] MEDS ORDERED: AZITHROMYCIN 500 MG in IV D5W 250 ML IV ONE (13:30)
[2020-12-11] MEDS ORDERED: FUROSEMIDE 20 MG/2 ML VIAL IV ONE (13:30)
--- NOTE | 2020-12-11 13:33 | NUR ---
PATIENT UNABLE TO PROVIDE URINE AT THIS TIME. URINAL AT BEDSIDE FOR COLLECTION.
--- NOTE | 2020-12-11 13:50 | NUR ---
RN NOTE RECEIVED REPORT FROM FLAKITO MAYS.
[2020-12-11 14:01] LABS: BILIRUBIN,URINE Negative (NEGATIVE); COLOR,URINE YELLOW (YELLOW); LEUKOCYTE ESTERASE ,URINE Negative (NEGATIVE); NITRITE, URINE Negative (NEGATIVE); PH,URINE 5.5 (5.0-8.0); PROTEIN,URINE 100 mg/dl (NEGATIVE); UGLUCOSE 100 MG/DL mg/dL (NEGATIVE)
[2020-12-11 14:04] LABS: BACTERIA,URINE Rare /HPF (None Seen); RBC,URINE 0-2 /HPF (0-2); SQUAMOUS EPITHELIAL CELL,UR Rare /HPF (None Seen); WBC,URINE 0-2 /HPF (0-3)
--- NOTE | 2020-12-11 14:19 | NUR ---
PATIENT A/OX4, BREATHING EVEN AND UNLABORED, NO SOB NOTED, NEEDS ATTENDED. KEPT COMFORTABLE. PATIENT TRANSFERRED TO ROOM 103 VIA ACLS PROTOCOL. ENDORSED TO ALEXX MAYS
[2020-12-11 16:00] VITALS: BP 129/48
[2020-12-11] MEDS ORDERED: MEROPENEM 500 MG in IV NS 0.9% 50 ML IV SCH (17:00)
--- NOTE | 2020-12-11 17:02 | NUR ---
RN NOTE DR. FORBES ORDERED IV ATB AT THIS, ORDERS NOTED AND CARRIED OUT, MD WILL ORDER THE REST OF THE MEDICATION SOON HE CAN.
[2020-12-11] MEDS ORDERED: VANCOMYCIN 1 GM in IV D5W 250 ML IV ONE (18:00)
--- NOTE | 2020-12-11 19:00 | NUR ---
RN NOTE RECEIVED PATIENT IN BED, AO X 3-4 WITH EPISODES OF CONFUSION, IN NO S/SX OF ACUTE DISTRESS AT THIS TIME. BREATHING IS EVEN AND UNLABORED, SATURATION AT 99% ON 3L VIA NC, AFIB ON THE MONITOR WITH V-PACING, HR IS 62. NOTED IV SITE AT RFA 20G, AND JUAN ALBERTO MIDLINE, HUBS PATENT AND FLUSHING WELL, NO S/S OF INFECTION OR INFILTRATION. SAFETY MEASURES IMPLEMENTED. PATIENT BED ALARM IS ON. HEAD OF BED ELEVATED. BED IS LOCKED, IN LOWEST POSITION AND SIDE RAILS UP. CALL LIGHT WITHIN REACH OF THE PATIENT. WILL CONTINUE TO MONITOR AND REASSESS FOR ANY CHANGES.
--- NOTE | 2020-12-11 19:04 | NUR ---
RN NOTE PATIENT OBSERVED IN BED, AWAKE, ALERT AND ORIENTED X3 WITH EPISODE OF FORGETFULNESS, ON 02 @3LPM VIA NC O2 SAT OF 97% BREATHING EVEN AND UNLABORED, RIGHT UPPER ARM MIDLINE, IV ATB ORDERED, NO ASE NOTED, ON TELE MONITOR CONTROLLED A-FIB WITH V PACING, LEFT UPPER CHEST PACE MAKER. WOUND TREATMENT DONE ORDERED, ISOLATION PRECAUTION OBSERVED, DR. FORBES WILL FINISH ADMISSION ORDER WHEN HE GETS IN THE HOSPITAL, FULL ASSIST WITH MEALS, CHEST X-RAY + FOR PNA, WILL CONTINUE TO MONITOR, BED WHEELS LOCK, CALL LIGHT WITHIN REACH, SAFETY MEASURE OBSERVED, WILL ENDORSE TO NEXT SHIT.
[2020-12-11 20:00] VITALS: BP 120/54
[2020-12-11] MEDS ORDERED: ENOXAPARIN SODIUM 80 MG/0.8 ML DISP.SYRIN SQ SCH (20:00)
[2020-12-11] MEDS: MEROPENEM 1 G in IV NS 0.9% 100 ML IV SCH (20:40)
[2020-12-11] MEDS: ENOXAPARIN SODIUM 40 MG/0.4 ML DISP.SYRIN SQ SCH (22:03)
[2020-12-11] MEDS: LATANOPROST EYE DROP 0.005% 2.5 ML BOTTLE EACHEYE SCH (22:04)
[2020-12-11] MEDS: ATORVASTATIN 40 MG TABLET PO SCH (22:04)
[2020-12-11] MEDS: TAMSULOSIN 0.4 MG CAP.SR.24H PO SCH (22:04)
[2020-12-12] VITALS: BP 120/54
[2020-12-12 04:00] VITALS: BP 116/78
[2020-12-12] MEDS: MEROPENEM 1 G in IV NS 0.9% 100 ML IV SCH ×3 (04:37→20:12)
[2020-12-12] MEDS: VANCOMYCIN 0.75 GM in IV D5W 250 ML IV SCH ×2 (06:19→18:18)
[2020-12-12 06:50] LABS: CALCIUM, SERUM 8.4 mg/dL (8.5-10.1); CREATININE 1.1 mg/dL (0.6-1.3); POTASSIUM 3.7 mmol/L (3.5-5.1)
[2020-12-12] MEDS: PANTOPRAZOLE 40 MG TABLET.DR PO SCH (07:30)
[2020-12-12 08:12] VITALS: BP 111/63
[2020-12-12] MEDS: TIMOLOL 0.5% SOLN OPHTH 5 ML BOTTLE EACHEYE SCH (09:35)
[2020-12-12] MEDS: FUROSEMIDE 20 MG/2 ML VIAL IV SCH ×2 (09:36→16:35)
[2020-12-12] MEDS: ALLOPURINOL 100 MG TABLET PO SCH (09:36)
[2020-12-12] MEDS: DOCUSATE SODIUM 100 MG CAPSULE PO SCH ×2 (09:36→16:47)
[2020-12-12] MEDS: FINASTERIDE (5 MG) 5 MG TABLET PO SCH (09:37)
[2020-12-12] MEDS: ENOXAPARIN SODIUM 40 MG/0.4 ML DISP.SYRIN SQ SCH (09:38)
[2020-12-12] MEDS: LEVOTHYROXINE SODIUM 50 MCG TABLET PO SCH (09:41)
[2020-12-12 12:29] VITALS: BP 110/53
--- NOTE | 2020-12-12 14:14 | NUR ---
RN NOTES RECEIVED PT IN BED AWAKE ALERT & 0 X3 , ABLE TO MAKE NEEDS KNOWN AND ANXIOUS TO GO HOME, ON 02 @3LPM VIA NC O2 SAT OF 92-97% FLUCTUATES BETWEEN THESE MEASURES , BREATHING IS EVEN AND UNLABORED, RIGHT UPPER ARM MIDLINE, IV ATB ORDERED SCANNED IT AT 12 NOON WILL GIVE PER ORDER OF Q 8 HOURS IS NOT DUE TILL 1600 WILL HOLD TILL 1600, ON TELE MONITOR CONTROLLED A-FIB WITH V PACING EPISODES NOTED, LEFT UPPER CHEST PACE MAKER. WOUND TREATMENT DONE ORDERED, ISOLATION PRECAUTION OBSERVED & IMPLEMENTED AT ALL TIMES, FULL ASSIST WITH MEALS, BED WHEELS LOCKED POSITION , CALL LIGHT WITHIN REACH, SAFETY MEASURE INPLACE, CONTINUE TO MONITOR
[2020-12-12 14:52] LABS: ABG BASE EXCESS 6.6 mmol/L; ABG PCO2 61.9 mmHg (35.0-45.0); ABG PH 7.347 (7.350-7.450); ABG PO2 150.1 mmHg (75.0-100.0); AaDO2 34.8 mmHg; COHb 0.3 % (0.5-1.5); MetHb 0.2 % (0.0-1.5); O2Hb 98.5 % (94.0-97.0); SITE, ABG Right Radial; VENT MODE, BG 4L NC
--- NOTE | 2020-12-12 14:58 | NUR ---
RN NOTES MD ORDERS ARE TO REDUCE O2 TO 2 LPM AT THIS TIME, TO MONITOR AND ASSESS OXYGEN LEVEL AND NOTIFY IF DROP BELOW 92 %, AT THIS TIME REMAINING AT 92-96% FLUCTUATING IN BETWEEN THE NUMBERS, WILL CONTINUE TO MONITOR FOR ANY SIGNIFICANT CHANGES AT THIS TIME.
[2020-12-12 16:28] VITALS: BP 110/53
--- NOTE | 2020-12-12 19:42 | NUR ---
RN OPENING NOTE RECEIVED PT IN BED AWAKE A/OX3 , ABLE TO MAKE NEEDS KNOWN AND ANXIOUS TO GO HOME, ON 02 @3LPM VIA NC O2 SAT OF 94%. PT STATES HE IS SHORT OF BREATH. ELEVATED HOB AND VERBALIZED RELIEF. RIGHT UPPER ARM MIDLINE, PATENT AND INTACT. ON TELE MONITOR CONTROLLED A-FIB WITH V PACING , LEFT CHEST WALL PACE MAKER. ISOLATION PRECAUTIONS OBSERVED. SAFETY MEASURES IMPLEMENTED: BED WHEELS LOCKED POSITION , CALL LIGHT WITHIN REACH, BED LOWEST POSITION, SIDE RAILS UP X2. NO ACUTE DISTRESS NOTED AT THIS TIME.
[2020-12-12 20:00] VITALS: BP 133/46
[2020-12-12] MEDS: TAMSULOSIN 0.4 MG CAP.SR.24H PO SCH (22:55)
[2020-12-12] MEDS: ATORVASTATIN 40 MG TABLET PO SCH (22:55)
[2020-12-12] MEDS: LATANOPROST EYE DROP 0.005% 2.5 ML BOTTLE EACHEYE SCH (22:56)
[2020-12-13] VITALS (9 sets, daily range): BP systolic 110–127; BP diastolic 40–62
[2020-12-13] MEDS: MEROPENEM 1 G in IV NS 0.9% 100 ML IV SCH ×3 (04:22→21:39)
[2020-12-13] MEDS: VANCOMYCIN 0.75 GM in IV D5W 250 ML IV SCH (05:29)
[2020-12-13 06:55] LABS: CALCIUM, SERUM 8.6 mg/dL (8.5-10.1); CREATININE 0.9 mg/dL (0.6-1.3)
--- NOTE | 2020-12-13 06:59 | NUR ---
RN CLOSING NOTE RECEIVED PT IN BED AWAKE A/OX3 , ABLE TO MAKE NEEDS KNOWN AND ANXIOUS TO GO HOME, ON 02 @2LPM VIA NC O2 SAT OF 94%. ELEVATED HOB FOR SOB AND VERBALIZED RELIEF. RIGHT UPPER ARM MIDLINE, PATENT AND INTACT. ON TELE MONITOR CONTROLLED A-FIB WITH V PACING , LEFT CHEST WALL PACE MAKER. ISOLATION PRECAUTIONS OBSERVED. ALL ORDERS FOLLOWED THROUGHOUT SHIFT. PT. KEPT CLEAN AND DRY. SAFETY MEASURES IMPLEMENTED: BED WHEELS LOCKED POSITION , CALL LIGHT WITHIN REACH, BED LOWEST POSITION, SIDE RAILS UP X2. NO ACUTE DISTRESS NOTED AT THIS TIME. WILL ENDORSE TO MORNING SHIFT RN Addendum: 12/13/20 at 0708 by HÉCTOR MARK RN AWAITING RIGHT LUNG US GUIDED THORACENTESIS. CONSENT PLACED IN CHART. PT. WELL AWARE
--- NOTE | 2020-12-13 07:05 | NUR ---
RN NOTE RECEIVED PT ON BED AWAKE A/OX3 , ABLE TO MAKE NEEDS KNOWN, ON 02 @2LPM VIA NC O2 SAT WNL, RIGHT UPPER ARM MIDLINE, PATENT AND INTACT. ON TELE MONITOR CONTROLLED A-FIB WITH V PACING , LEFT CHEST WALL PACE MAKER. ISOLATION PRECAUTIONS OBSERVED. SAFETY MEASURES IMPLEMENTED: BED WHEELS LOCKED POSITION , CALL LIGHT WITHIN REACH, BED LOWEST POSITION, SIDE RAILS UP X2.CONTINUE TO MONITOR.
[2020-12-13] MEDS: LEVOTHYROXINE SODIUM 50 MCG TABLET PO SCH (08:24)
[2020-12-13] MEDS: FUROSEMIDE 20 MG/2 ML VIAL IV SCH ×3 (08:24→17:24)
[2020-12-13] MEDS: PANTOPRAZOLE 40 MG TABLET.DR PO SCH (08:25)
[2020-12-13] MEDS: FINASTERIDE (5 MG) 5 MG TABLET PO SCH (08:25)
[2020-12-13] MEDS: DOCUSATE SODIUM 100 MG CAPSULE PO SCH ×2 (08:25→16:05)
[2020-12-13] MEDS: ALLOPURINOL 100 MG TABLET PO SCH (08:25)
[2020-12-13] MEDS: TIMOLOL 0.5% SOLN OPHTH 5 ML BOTTLE EACHEYE SCH (08:26)
[2020-12-13 09:05] LABS: BASOPHILS % (AUTO) 0.3 % (0.0-2.0); HEMATOCRIT 21 % (39-51); LYMPHOCYTES % (AUTO) 42.1 % (20.0-44.0); MEAN CORPUSCULAR HGB CONC 33 g/dl (31.0-36.0); MEAN CORPUSCULAR VOLUME 99 fL (80-96); MONOCYTES # (AUTO) 0.3 K/uL (0.1-1.30); MONOCYTES % (AUTO) 14.2 % (2.0-12.0); NEUTROPHILS % (AUTO) 41.4 % (43.0-81.0); PLATELET COUNT (AUTO) 79 K/uL (150-450); RED BLOOD CELL COUNT(AUTO) 2.16 MIL/uL (4.5-6.0); WHITE BLOOD COUNT (AUTO) 2.3 K/uL (4.3-11.0)
--- NOTE | 2020-12-13 11:30 | NUR ---
RN NOTES RIGHT CHEST THORACENTESIS DONE BY DR MEDRANO, 560CC PLEURAL FLUID SENT TO LAB , VSS STABLE, CONTINUE TO MONITOR.
[2020-12-13 11:58] LABS: BAND % (MANUAL) 1 % (0.0-5.0); EOSINOPHILS % (MANUAL) 3 % (0-4); LYMPHOCYTES % (MANUAL) 40 % (16-48); MONOCYTES % (MANUAL) 13 % (0-11.0); NEUTROPHILS % (MANUAL) 43 (42-76)
[2020-12-13] MEDS ORDERED: FUROSEMIDE 40 MG/4 ML VIAL IV ONE ×2 (16:00→19:30)
--- NOTE | 2020-12-13 16:00 | NUR ---
RN NOTES PT IS ANXIOUS AND WORK OF BREATHING INCREASED, O2 SAT 89-90 %, ON 3LO2 N/C, DR LEIDY HAMILTON, NEW ORDER RECEIVED, CONTINUE TO MONITOR.
[2020-12-13] MEDS: LORAZEPAM 0.5 MG TABLET PO PRN (16:04)
[2020-12-13] MEDS: ALBUTEROL FS 2.5 MG/0.5 ML VIAL.NEB NEB PRN (16:21)
--- NOTE | 2020-12-13 17:37 | NUR ---
RN NOTES PT RESTING IN BED, STATED FEEDS BETTER , VSS STABLE ,CONTINUE TO MONITOR .
--- NOTE | 2020-12-13 18:26 | NUR ---
RN NOTES PT RESTING IN BED AT THIS TIME, DR FORBES AT THE BEDSIDE , O2 SAT WNL, ORDER RECEIVED TO TRANSFUSED FOR ONE UNIT OF PRBC , WILL ENDORSE TO EMAIL DEPLOYMENT SPECIALIST NURSE FOR CONTINUITY OF CARE .
--- NOTE | 2020-12-13 19:15 | NUR ---
RN NOTES PT TRANSFERRED TO ICU , ROOM 254 VIA ACLS PROTOCOL PER DR FORBES ORDER , FOR CHEST TUBE INSERTION AND CLOSE MONITORING.
--- NOTE | 2020-12-13 19:30 | NUR ---
RN NOTE RECEIVED PATIENT IN BED. A/OX3. ON OXYGEN 3L/MIN VIA NASAL CANNULA. PATIENT O2 SAT IS 90, INCREASED TO 5L/MIN. PATIENT SOB WHEN SPEAKING. NO C/O PAIN, STATED HIS LEFT ARM IS SORE. EXTERNAL TELE MONITOR READS SINUS RHYTHM. IN NO APPARENT DISTRESS. IV ACCESS IN JUAN ALBERTO MIDLINE AND RFA #20 PATENT AND SALINE LOCKED. BED IS LOW AND LOCKED, HOB ELEVATED IN SEMI FOWLERS, SIDE RAILS UP X3, CALL LIGHT WITHIN REACH. WILL CONTINUE TO MONITOR THROUGHOUT SHIFT. Addendum: 12/14/20 at 0719 by AMOL YOUSIF RN TELE MONITOR IS AFIB WITH OCCASIONAL V PACING
--- NOTE | 2020-12-13 20:30 | NUR ---
RN NOTE DR. FORBES CALLED FOR CT CHEST RESULTS. DR. FORBES ORDERED TO NOTIFY BETSY BABIN DNP TO DISCUSS WITH DR. BARGER TO DETERMINE IF THIS PATIENT NEEDS A CHEST TUBE PLACED. INFORMED BETSY BABIN. BETSY BABIN ORDER TO OBTAIN CHEST TUBE CONSENT FROM PATIENT.
--- NOTE | 2020-12-13 21:00 | NUR ---
RN NOTE SPOKE WITH REN FROM BLOOD BANK TO SEE WHEN BLOOD WILL BE READY. REN STATED SINCE PATIENT HAS TESTED POSITIVE FOR ANTIBODIES THE BLOOD WILL TAKE LONGER TO ARRIVE. BETSY BABIN DNP NOTIFIED.
[2020-12-13 21:15] LABS: BASOPHILS % (AUTO) 0.1 % (0.0-2.0); LYMPHOCYTES # (AUTO) 0.7 K/uL (0.8-4.8); LYMPHOCYTES % (AUTO) 11.8 % (20.0-44.0); MEAN CORPUSCULAR HGB CONC 32 g/dl (31.0-36.0); MEAN CORPUSCULAR VOLUME 98 fL (80-96); MONOCYTES # (AUTO) 0.5 K/uL (0.1-1.30); MONOCYTES % (AUTO) 9.2 % (2.0-12.0); NEUTROPHILS # (AUTO) 4.5 K/uL (1.8-8.9); NEUTROPHILS % (AUTO) 78.9 % (43.0-81.0); PLATELET COUNT (AUTO) 97 K/uL (150-450); WHITE BLOOD COUNT (AUTO) 5.7 K/uL (4.3-11.0)
--- NOTE | 2020-12-13 21:30 | NUR ---
RN NOTE BETSY BABIN VERBAL ORDER FOR 2 MORE UNITS FOR BLOOD TRANSFUSION, ORDER READ BACK NOTED AND CARRIED OUT.
[2020-12-13] MEDS: TAMSULOSIN 0.4 MG CAP.SR.24H PO SCH (21:39)
[2020-12-13 21:40] LABS: RED BLOOD CELL COUNT(AUTO) 1.86 MIL/uL (4.5-6.0)
[2020-12-13] MEDS: ATORVASTATIN 40 MG TABLET PO SCH (21:40)
[2020-12-13 21:42] LABS: HEMATOCRIT 18 % (39-51); HEMOGLOBIN 5.8 g/dL (13.5-17.5)
--- NOTE | 2020-12-13 21:50 | NUR ---
RN NOTE NOTIFIED BETSY BABIN DNP CRITICAL RESULTS FOR HGB 5.8 HCT 18. BETSY BABIN STATED WE NEED TO WAIT FOR BLOOD TO BECOME AVAILABLE. WILL FOLLOW UP WITH BLOOD BANK FOR BLOOD AVAILABILITY.
--- NOTE | 2020-12-13 22:16 | NUR ---
RN NOTE DID NOT ADMINISTER LASIX 40 MG IV ONE TIME AT 1930 D/T NOTE ON EMR STATING TO GIVE AFTER TRANSFUSION. NO TRANSFUSION GIVEN AT THIS TIME. BLOOD BANK CALLED NO BLOOD AVAILABLE AT THIS TIME. XALATAN DROPS NOT AVAILABLE AT BEDSIDE OR IN CASSETTE. FAXED RN POWER LINE INSTALLER AND REPAIRER MEDICATION TO BE CHECKED IN NIGHT LOCKER. AWAITING TO SEE IF MED IS AVAILABLE FROM RN SUP.
[2020-12-13] MEDS ORDERED: LATANOPROST EYE DROP 0.005% 2.5 ML BOTTLE ONE (23:04)
[2020-12-13 23:09] LABS: BAND % (MANUAL) 14 % (0.0-5.0); BASOPHILS % (MANUAL) 0 % (0.0-2.0); EOSINOPHILS % (MANUAL) 0 % (0-4); LYMPHOCYTES % (MANUAL) 10 % (16-48); METAMYELOCYTES % 1 % (0-0); MONOCYTES % (MANUAL) 2 % (0-11.0); NEUTROPHILS % (MANUAL) 73 (42-76)
[2020-12-13] MEDS: LATANOPROST EYE DROP 0.005% 2.5 ML BOTTLE EACHEYE SCH (23:41)
[2020-12-14] VITALS (28 sets, daily range): BP systolic 97–128; BP diastolic 34–61
--- NOTE | 2020-12-14 02:45 | NUR ---
RN NOTE CALLED BLOOD BANK. BLOOD IS STILL NOT AVAILABLE.
[2020-12-14] MEDS: MEROPENEM 1 G in IV NS 0.9% 100 ML IV SCH ×3 (03:10→20:58)
[2020-12-14 05:28] LABS: BASOPHILS % (AUTO) 0.2 % (0.0-2.0); EOSINOPHILS % (AUTO) 0.1 % (0.0-6.0); LYMPHOCYTES # (AUTO) 1.5 K/uL (0.8-4.8); LYMPHOCYTES % (AUTO) 37.2 % (20.0-44.0); MEAN CORPUSCULAR HGB CONC 33 g/dl (31.0-36.0); MEAN CORPUSCULAR VOLUME 101 fL (80-96); MONOCYTES # (AUTO) 0.5 K/uL (0.1-1.30); MONOCYTES % (AUTO) 11.5 % (2.0-12.0); NEUTROPHILS # (AUTO) 2.1 K/uL (1.8-8.9); PLATELET COUNT (AUTO) 74 K/uL (150-450); WHITE BLOOD COUNT (AUTO) 4.1 K/uL (4.3-11.0)
[2020-12-14 05:31] LABS: HEMATOCRIT 16 % (39-51); RED BLOOD CELL COUNT(AUTO) 1.56 MIL/uL (4.5-6.0)
[2020-12-14 05:32] LABS: CALCIUM, SERUM 8.5 mg/dL (8.5-10.1); POTASSIUM 4.3 mmol/L (3.5-5.1)
[2020-12-14 05:33] LABS: HEMOGLOBIN 5.2 g/dL (13.5-17.5)
--- NOTE | 2020-12-14 06:05 | NUR ---
RN NOTE OBTAINED VERBAL CONSENT VIA TELEPHONE FROM SON MARVIN MORENO FOR BLOOD TRANSFUSION AND THORACTOMY. SECOND RN WITNESS ED PLANTING MATERIAL REMOVER. CONSENTS PLACED IN CHART. Addendum: 12/14/20 at 0619 by AMOL YOUSIF RN PATIENT VERBALLY CONSENTED TO PROCEDURES BUT WAS NOT ABLE TO PHYSICALLY SIGN.
--- NOTE | 2020-12-14 06:16 | NUR ---
RN NOTE CALLED BLOOD BANK, BLOOD STILL NOT AVAILABLE. INFORMED THEM TO CALL SOON ARRIVES. WILL ENDORSE TO ONCOMING NURSE.
--- NOTE | 2020-12-14 06:48 | NUR ---
RN NOTE PATIENT RESTING IN BED. A/OX3. ON OXYGEN 5L/MIN VIA NASAL CANNULA. TRIED TITRATING O2 BUT O2 SAT BEGAN TO DESAT. NO C/O PAIN THROUGHOUT NIGHT. TELE MONITOR IS SINUS RHYTHM. NO DISTRESS. PATIENT IS INFORMED THAT HE WILL BE GETTING A BLOOD TRANSFUSION AND CHEST TUBE. CONSENTS SIGNED. BLOOD IS STILL NOT AVAILABLE. IV IN JUAN ALBERTO MIDLINE AND RFA #20 AND RIJ TLC. BED REMAINS LOW AND LOCKED, HOB ELEVATED IN SEMI FOWLERS, SIDE RAILS UP X3, CALL LIGHT WITHIN REACH. WILL ENDORSE TO ONCOMING SHIFT Addendum: 12/14/20 at 0719 by AMOL YOUSIF RN TELE MONITOR IS AFIB WITH OCCASIONAL V PACING
--- NOTE | 2020-12-14 07:38 | NUR ---
RN NOTES RECEIVED PATIENT ASLEEP BUT ROUSABLE AND ORIENTED. SATURATING WELL ON 5L NC AND NOT IN ANY RESPIRATORY DISTRESS. LEFT CHEST WALL PACEMAKER AND V PACING ON BEDSIDE MONITOR. RIGHT IJ TLC AND JUAN ALBERTO ML. NO DRIPS AT THIS TIME. AWAITING PRBC AVAILABILITY TO START TRANSFUSIONS. SAFETY CHECKS IN PLACE. WILL CONTINUE TO MONITOR.
[2020-12-14] MEDS ORDERED: VANCOMYCIN 1 GM in IV D5W 250 ML IV SCH (08:00)
[2020-12-14] MEDS: DOCUSATE SODIUM 100 MG CAPSULE PO SCH ×3 (08:06→16:02)
[2020-12-14] MEDS: ALLOPURINOL 100 MG TABLET PO SCH (08:06)
[2020-12-14] MEDS: LEVOTHYROXINE SODIUM 50 MCG TABLET PO SCH (08:06)
[2020-12-14] MEDS: FINASTERIDE (5 MG) 5 MG TABLET PO SCH (08:06)
[2020-12-14] MEDS: PANTOPRAZOLE 40 MG TABLET.DR PO SCH (08:06)
[2020-12-14] MEDS: TIMOLOL 0.5% SOLN OPHTH 5 ML BOTTLE EACHEYE SCH (08:07)
[2020-12-14] MEDS ORDERED: FUROSEMIDE 40 MG/4 ML VIAL IV SCH (09:00)
--- NOTE | 2020-12-14 10:00 | NUR ---
RN NOTE RN CALLED LAB. RBC STILL UNAVAILABLE. PATIENT HAS ANTIBODIES CAUSING PROCUREMENT MORE CHALLENGING.
--- NOTE | 2020-12-14 10:30 | NUR ---
RN NOTE PATIENT DECLINED MCCONNELL INSERTION. DR FORBES DISCUSSED WITH PATIENT BUT STILL PATIENT REFUSED.
--- NOTE | 2020-12-14 11:30 | NUR ---
RN NOTE PER MD, PATIENT ALLOWED TO EAT, UNLESS PROCEDURE IS BOOKED FOR PATIENT ALREADY. HOWEVER, PATIENT REFUSES TO EAT.
[2020-12-14 11:55] LABS: ALBUMIN 2.5 g/dL (3.4-5.0); BILIRUBIN,DIRECT 0.3 mg/dL (0.0-0.2); BILIRUBIN,TOTAL 0.5 mg/dL (0.2-1.0); TOTAL PROTEIN, SERUM 7.4 g/dL (6.4-8.2)
[2020-12-14 12:22] LABS: D-DIMER 9.61 mg/L(FEU (0.17-0.50)
--- NOTE | 2020-12-14 12:45 | NUR ---
RN NOTE ORDER FOR CEPACOL THROAT LOZENGE PLACED.
[2020-12-14] MEDS: MENTHOL/CETYLPYRD (CEPACOL) 1 LOZ LOZENGE PO PRN ×2 (13:09→17:20)
[2020-12-14] MEDS: EPOETIN ALFA (10,000 UNIT) 10,000 UNIT/ML VIAL SQ SCH (15:29)
[2020-12-14] MEDS: FUROSEMIDE 20 MG/2 ML VIAL IV SCH (16:01)
--- NOTE | 2020-12-14 18:03 | NUR ---
RN NOTE 1ST UNIT OF PRBC STARTED 15 MINUTES AGO. NO ADVERSE REACTIONS NOTED AT THIS TIME.
--- NOTE | 2020-12-14 18:23 | NUR ---
RN NOTES PATIENT CONDITION UNCHANGED. SATURATING WELL ON 3L NC AND NOT IN ANY RESPIRATORY DISTRESS. LEFT CHEST WALL PACEMAKER AND V PACING ON BEDSIDE MONITOR. RIGHT IJ TLC AND RIGHT FA PERIPHERAL IV IN PLACE. JUAN ALBERTO ML WITH 1ST UNIT PRBC RUNNING AT 120ML/HR. SAFETY CHECKS IN PLACE. FAMILY AT BEDSIDE. WILL ENDORSE TO NIGHT RN FOR CONTINUITY OF CARE.
--- NOTE | 2020-12-14 18:50 | NUR ---
RN NOTE CONFIRMED WITH DR FORBES THAT "ONCE ONLY" LASIX 40MG IS NO LONGER NECESSARY AFTER BLOOD TRANSFUSIONS IS COMPLETED. PATIENT IS ALREADY ON 20MG IV LASIX SCHEDULED BD.
--- NOTE | 2020-12-14 19:55 | NUR ---
RN NOTE FIRST BAG OF PRBC COMPLETED
--- NOTE | 2020-12-14 20:24 | NUR ---
RN NOTE SECOND BAG OF PRBC STARTED
[2020-12-14] MEDS: TAMSULOSIN 0.4 MG CAP.SR.24H PO SCH (21:48)
[2020-12-14] MEDS: ATORVASTATIN 40 MG TABLET PO SCH (21:48)
[2020-12-14] MEDS: LATANOPROST EYE DROP 0.005% 2.5 ML BOTTLE EACHEYE SCH (21:48)
--- NOTE | 2020-12-14 23:25 | NUR ---
RN NOTE SECOND BAG PRBC COMPLETED.V/S 124/54 P 63, O2 SAT 98% RR 22, T 97.9
[2020-12-15] VITALS (30 sets, daily range): BP systolic 114–141; BP diastolic 42–66
[2020-12-15] MEDS: MENTHOL/CETYLPYRD (CEPACOL) 1 LOZ LOZENGE PO PRN ×2 (00:49→13:46)
[2020-12-15] MEDS: LORAZEPAM 0.5 MG TABLET PO PRN (01:26)
[2020-12-15] MEDS: MEROPENEM 1 G in IV NS 0.9% 100 ML IV SCH ×3 (03:48→21:37)
--- NOTE | 2020-12-15 05:45 | NUR ---
RN NOTE FOURTH BAG OF PRBC COMPLETED. LAB NOTIFIED TO REDRAW PATIENT. PT AND V/S STABLE NO ADVERSE REACTION. PT RESTING IN BED. O2 SAT 97% ON 3 L NC.
--- NOTE | 2020-12-15 07:12 | NUR ---
RN NOTE PT REMAINED STABLE DURING SHIFT, ALL NEEDS MET. REPORT GIVEN TO AM RN FOR CALIN,
--- NOTE | 2020-12-15 07:20 | NUR ---
RN NOTES RECEIVED PATIENT ASLEEP BUT ROUSABLE AND ORIENTED. SATURATING WELL ON 3L NC AND NOT IN ANY RESPIRATORY DISTRESS. LEFT CHEST WALL PACEMAKER AND V PACING ON BEDSIDE MONITOR. RIGHT IJ TLC AND JUAN ALBERTO ML. SAFETY CHECKS IN PLACE. WILL CONTINUE TO MONITOR.
[2020-12-15 07:48] LABS: BASOPHILS % (AUTO) 0.2 % (0.0-2.0); EOSINOPHILS % (AUTO) 1.6 % (0.0-6.0); HEMATOCRIT 32 % (39-51); HEMOGLOBIN 10.7 g/dL (13.5-17.5); LYMPHOCYTES # (AUTO) 1.2 K/uL (0.8-4.8); LYMPHOCYTES % (AUTO) 22.8 % (20.0-44.0); MEAN CORPUSCULAR HGB CONC 34 g/dl (31.0-36.0); MEAN CORPUSCULAR VOLUME 94 fL (80-96); MONOCYTES # (AUTO) 0.6 K/uL (0.1-1.30); MONOCYTES % (AUTO) 12.1 % (2.0-12.0); NEUTROPHILS # (AUTO) 3.3 K/uL (1.8-8.9); NEUTROPHILS % (AUTO) 63.3 % (43.0-81.0); PLATELET COUNT (AUTO) 73 K/uL (150-450); RED BLOOD CELL COUNT(AUTO) 3.37 MIL/uL (4.5-6.0); WHITE BLOOD COUNT (AUTO) 5.3 K/uL (4.3-11.0)
[2020-12-15 07:51] LABS: CALCIUM, SERUM 8.6 mg/dL (8.5-10.1); CREATININE 1.1 mg/dL (0.6-1.3); POTASSIUM 4.3 mmol/L (3.5-5.1)
[2020-12-15] MEDS ORDERED: VANCOMYCIN 1 GM in IV D5W 250 ML IV SCH (08:00)
[2020-12-15] MEDS: PANTOPRAZOLE 40 MG TABLET.DR PO SCH (08:14)
[2020-12-15] MEDS: FINASTERIDE (5 MG) 5 MG TABLET PO SCH (08:14)
[2020-12-15] MEDS: ALLOPURINOL 100 MG TABLET PO SCH (08:14)
[2020-12-15] MEDS: LEVOTHYROXINE SODIUM 50 MCG TABLET PO SCH (08:14)
[2020-12-15] MEDS: FUROSEMIDE 20 MG/2 ML VIAL IV SCH ×2 (08:14→17:04)
[2020-12-15] MEDS: DOCUSATE SODIUM 100 MG CAPSULE PO SCH ×2 (08:14→17:04)
[2020-12-15] MEDS: TIMOLOL 0.5% SOLN OPHTH 5 ML BOTTLE EACHEYE SCH (08:15)
[2020-12-15 08:56] LABS: EOSINOPHILS % (MANUAL) 2 % (0-4); LYMPHOCYTES % (MANUAL) 25 % (16-48); MONOCYTES % (MANUAL) 12 % (0-11.0); NEUTROPHILS % (MANUAL) 61 (42-76)
--- NOTE | 2020-12-15 14:28 | NUR ---
RN NOTE CHEST TUBE INSERTION WAS ATTEMPTED BY DR MURPHY BUT LUNG WAS ADHERENT TO CHEST WALL, FLUID LOCULATED. INCISION WAS SUTURED AND US GUIDED THORACENTESIS WAS ORDERED. VERBAL CONSENT VIA TELEPHONE OBTAINED FROM SON MARVIN MORENO.
--- NOTE | 2020-12-15 17:00 | NUR ---
RN NOTE 1 UNIT PLATELET WAS COMPLETED WITH NO ADVERSE REACTIONS.
--- NOTE | 2020-12-15 18:14 | NUR ---
RN NOTES PATIENT IS A&O X4. SATURATING WELL ON 3L NC AND NOT IN ANY RESPIRATORY DISTRESS. LEFT CHEST WALL PACEMAKER AND V PACING ON BEDSIDE MONITOR. DRY AND INTACT DRESSING AT RIGHT CHEST POST RIGHT CHEST DRAIN INSERTION ATTEMPT. RIGHT IJ TLC AND JUAN ALBERTO ML IN PLACE. SAFETY CHECKS IN PLACE. WILL ENDORSE TO NIGHT RN FOR CONTINUITY OF CARE.
[2020-12-15] MEDS: LATANOPROST EYE DROP 0.005% 2.5 ML BOTTLE EACHEYE SCH (21:58)
[2020-12-15] MEDS: TAMSULOSIN 0.4 MG CAP.SR.24H PO SCH (21:58)
[2020-12-15] MEDS: ATORVASTATIN 40 MG TABLET PO SCH (21:58)
[2020-12-15] MEDS: HYDROCODONE/APAP 5/325MG TABLET PO PRN (21:59)
--- NOTE | 2020-12-15 22:23 | NUR ---
PATIENT VOID IN URINAL AND INCONT. OF URINE PATIENT ALERT X3 C/O OF UPPER RIGHT SIDE WITH ACHING PAIN.MEDICATED WITH NORCO 1 TAB 2159.PATIENT WAS SLEEPING PRIOR TO C/O OF PAIN 02 SAT 965 ON 3 LITERS NASAL CANNULA. LUNG DIMINISH TO LISTEN.ON MONITOR PACING. PATIENT HAS UPPER RIGHT ARM MIDLINE,AND UPPER RIGHT I.J. PATIENT RECEIVED MERREM 1 GM IVPB.NO OTHER C/O AT THIS TIME.
[2020-12-16] VITALS (24 sets, daily range): BP systolic 104–131; BP diastolic 36–62
[2020-12-16] MEDS: MEROPENEM 1 G in IV NS 0.9% 100 ML IV SCH (04:30)
[2020-12-16 05:20] LABS: BASOPHILS % (AUTO) 0.2 % (0.0-2.0); EOSINOPHILS % (AUTO) 1.8 % (0.0-6.0); HEMATOCRIT 32 % (39-51); HEMOGLOBIN 10.6 g/dL (13.5-17.5); LYMPHOCYTES # (AUTO) 1.1 K/uL (0.8-4.8); LYMPHOCYTES % (AUTO) 25.8 % (20.0-44.0); MEAN CORPUSCULAR HGB CONC 33 g/dl (31.0-36.0); MEAN CORPUSCULAR VOLUME 95 fL (80-96); MONOCYTES # (AUTO) 0.5 K/uL (0.1-1.30); MONOCYTES % (AUTO) 12.1 % (2.0-12.0); NEUTROPHILS # (AUTO) 2.5 K/uL (1.8-8.9); NEUTROPHILS % (AUTO) 60.1 % (43.0-81.0); RED BLOOD CELL COUNT(AUTO) 3.37 MIL/uL (4.5-6.0); WHITE BLOOD COUNT (AUTO) 4.1 K/uL (4.3-11.0)
[2020-12-16] MEDS: LORAZEPAM 0.5 MG TABLET PO PRN (05:23)
[2020-12-16 05:36] LABS: CALCIUM, SERUM 8.7 mg/dL (8.5-10.1); POTASSIUM 3.8 mmol/L (3.5-5.1)
[2020-12-16 06:04] LABS: PLATELET COUNT (AUTO) 81 K/uL (150-450)
--- NOTE | 2020-12-16 07:20 | NUR ---
RN OPENING NOTES RECEIVED PT RESTING IN BED. A/O X3-4. ON 3L O2 VIA NC. NO SOB OR ANY S/S OF RESPIRATORY DISTRESS. LEFT CHEST WALL PACEMAKER, V PACING ON BEDSIDE MONITOR. IV ACCESS INTACT, PATENT AND FLUSHED. NO PAIN REPORTED AT THIS TIME. SAFETY MEASURES IN PLACE. WILL CONTINUE TO MONITOR.
[2020-12-16] MEDS: TIMOLOL 0.5% SOLN OPHTH 5 ML BOTTLE EACHEYE SCH (08:44)
[2020-12-16] MEDS: FUROSEMIDE 20 MG/2 ML VIAL IV SCH ×2 (08:44→17:26)
[2020-12-16] MEDS: FINASTERIDE (5 MG) 5 MG TABLET PO SCH (08:45)
[2020-12-16] MEDS: DOCUSATE SODIUM 100 MG CAPSULE PO SCH ×2 (08:45→17:26)
[2020-12-16] MEDS: LEVOTHYROXINE SODIUM 50 MCG TABLET PO SCH (08:45)
[2020-12-16] MEDS: PANTOPRAZOLE 40 MG TABLET.DR PO SCH (08:45)
[2020-12-16] MEDS: ALLOPURINOL 100 MG TABLET PO SCH (08:45)
[2020-12-16] MEDS: ENSURE ENLIVE CHOC 237 ML CAN PO SCH (17:26)
--- NOTE | 2020-12-16 18:47 | NUR ---
RN CLOSING NOTES NO SIGNIFICANT CHANGES THROUGHOUT THE SHIFT. NO SOB OR ANY DISTRESS NOTED. NO PAIN REPORTED AT THIS TIME. ALL DUE MEDS GIVEN. NEEDS ATTENDED. KEPT CLEAN AND COMFORTABLE. SAFETY MEASURES IN PLACE. WILL ENDORSE TO NIGHT RN FOR CALIN.
--- NOTE | 2020-12-16 19:54 | NUR ---
RN NOTE PATIENT RESTING COMFORTABLY IN BED. A/O X3-4. ON 3L O2 VIA NC. NO SOB OR ANY S/S OF RESPIRATORY DISTRESS. LEFT CHEST WALL PACEMAKER, V PACING ON BEDSIDE MONITOR. IV ACCESS INTACT, PATENT AND FLUSHED. SAFETY MEASURES IN PLACE. CALL LIGHT WITHIN REACH. ALL NEEDS ANTICIPATED.
[2020-12-16] MEDS: LATANOPROST EYE DROP 0.005% 2.5 ML BOTTLE EACHEYE SCH (21:51)
[2020-12-16] MEDS: ACETAMINOPHEN 650 MG/20.3 ML UDC NG PRN (21:51)
[2020-12-16] MEDS: TAMSULOSIN 0.4 MG CAP.SR.24H PO SCH (21:51)
[2020-12-16] MEDS: ATORVASTATIN 40 MG TABLET PO SCH (21:51)
[2020-12-17] VITALS (22 sets, daily range): BP systolic 105–136; BP diastolic 35–76
[2020-12-17] MEDS: ACETAMINOPHEN 650 MG/20.3 ML UDC NG PRN (03:59)
[2020-12-17 04:43] LABS: BASOPHILS % (AUTO) 0.3 % (0.0-2.0); EOSINOPHILS % (AUTO) 2.8 % (0.0-6.0); HEMATOCRIT 28 % (39-51); HEMOGLOBIN 9.5 g/dL (13.5-17.5); LYMPHOCYTES # (AUTO) 1.2 K/uL (0.8-4.8); LYMPHOCYTES % (AUTO) 31.6 % (20.0-44.0); MEAN CORPUSCULAR HGB CONC 34 g/dl (31.0-36.0); MEAN CORPUSCULAR VOLUME 97 fL (80-96); MONOCYTES # (AUTO) 0.4 K/uL (0.1-1.30); NEUTROPHILS # (AUTO) 2.1 K/uL (1.8-8.9); NEUTROPHILS % (AUTO) 54.3 % (43.0-81.0); PLATELET COUNT (AUTO) 74 K/uL (150-450); RED BLOOD CELL COUNT(AUTO) 2.86 MIL/uL (4.5-6.0); WHITE BLOOD COUNT (AUTO) 3.9 K/uL (4.3-11.0)
[2020-12-17 04:54] LABS: CALCIUM, SERUM 8.8 mg/dL (8.5-10.1); CREATININE 1.1 mg/dL (0.6-1.3); POTASSIUM 3.7 mmol/L (3.5-5.1)
--- NOTE | 2020-12-17 06:49 | NUR ---
RN NOTE PATIENT A/O X3-4. ON 3L O2 VIA NC. NO SOB OR ANY S/S OF RESPIRATORY DISTRESS. LEFT CHEST WALL PACEMAKER, V PACING ON BEDSIDE MONITOR. IV ACCESS INTACT, PATENT AND FLUSHED. REFUSED BED BATH AND LINEN CHANGE X3. TURNED AND REPOSITIONED Q2H. SAFETY MEASURES IN PLACE. CALL LIGHT WITHIN REACH. WILL ENDORSE TO AM SHIFT.
--- NOTE | 2020-12-17 07:15 | NUR ---
RN NOTE PATIENT OBSERVED IN BED, AWAKE ALERT AND ORIENTED X3 WITH EPISODE OF FORGETFULNESS, ON O2 VIA NC @ 3LPM BREATHING EVEN AND UNLABORED, RIGHT UPPER ARM MIDLINE PATENT AND FLUSHING WELL, WILL CONTINUE TO MONITOR PATIENT, BED WHEELS LOCK. CALL LIGHT WITHIN REACH, SAFETY MEASURES OBSERVED.
[2020-12-17] MEDS ORDERED: VANCOMYCIN 1 GM in IV D5W 250 ML IV SCH (08:00)
[2020-12-17] MEDS: ALLOPURINOL 100 MG TABLET PO SCH (08:47)
[2020-12-17] MEDS: FINASTERIDE (5 MG) 5 MG TABLET PO SCH (08:47)
[2020-12-17] MEDS: LEVOTHYROXINE SODIUM 50 MCG TABLET PO SCH (08:47)
[2020-12-17] MEDS: PANTOPRAZOLE 40 MG TABLET.DR PO SCH (08:47)
[2020-12-17] MEDS: DOCUSATE SODIUM 100 MG CAPSULE PO SCH ×2 (08:47→17:25)
--- NOTE | 2020-12-17 09:00 | NUR ---
RN NOTE NOTIFIED DR. FORBES REGARDING PATIENT CURRENT CONDITION, PLATELET OF 74, NO BLEEDING NOTED. WILL CONTINUE TO MONITOR.
[2020-12-17] MEDS: FUROSEMIDE 20 MG/2 ML VIAL IV SCH ×2 (09:37→17:24)
[2020-12-17] MEDS: ENSURE ENLIVE CHOC 237 ML CAN PO SCH ×2 (09:44→17:25)
[2020-12-17] MEDS: TIMOLOL 0.5% SOLN OPHTH 5 ML BOTTLE EACHEYE SCH (09:45)
[2020-12-17] MEDS ORDERED: MORPHINE SULFATE INJ 2 MG/ML DISP.SYRIN IV PRN (10:00)
[2020-12-17] MEDS: POTASSIUM CHLORIDE 20 MEQ TAB.PRT.SR PO SCH (10:34)
--- NOTE | 2020-12-17 12:00 | NUR ---
ICU/RN PT IS AWAKE,ALERT,RESTING IN THE BED ON 4L N/C SAT O2-94%.V/S STABLE ,AFEBRILE.NO PAIN REPORTED AT THIS TIME. UNABLE TO URINATE.MD NOTIFIED.F/C INSERTED.PT HAS LOWER BACK WOUNDS AND REDNESS PERINEAL AREA,LEFT UPPER ARM WOUND.BRUISES ALL OVER THE BODY.RIGHT IJ TLC.AND RIGHT UPPER ARM MIDLINE. LABS REVIEW.MD AWARE.REPOSITION FOR COMFORT.
--- NOTE | 2020-12-17 15:35 | NUR ---
ICU/RN CT CHEST DONE. FAMILY AT BED SIDE.DR BARGER TALK TO THE FAMILY AND THE PATIENT. .PT REFUSED TO HAVE ANY SURGERY.CONTINUE MONITORING.
--- NOTE | 2020-12-17 18:10 | NUR ---
ICU/RN PM CARE PROVIDED.DUE MEDS ARE GIVEN ORDERED. WOUND DRESSING DONE ASA ORDERED.REPOSITION FOR COMFORT.CONTINUE MONITORING.
[2020-12-17] MEDS: ATORVASTATIN 40 MG TABLET PO SCH (20:31)
[2020-12-17] MEDS: TAMSULOSIN 0.4 MG CAP.SR.24H PO SCH (20:32)
[2020-12-17] MEDS: LORAZEPAM INJ 2 MG/ML VIAL IV PRN (20:32)
[2020-12-17] MEDS: LATANOPROST EYE DROP 0.005% 2.5 ML BOTTLE EACHEYE SCH (21:10)
--- NOTE | 2020-12-17 22:59 | NUR ---
patient awake patient afraid he going to patient was given ativan0.25mg ivp at 2031. patient on monitor a-fib v pacing. has 02 4 liters n/c sat 96%. f/c draining ac urine. temp 98.8. patient sleeping now.patient has right midline, right IJ TRIPLE CATH. PATIENT WITHOUT NO DISTRESS.
[2020-12-18] VITALS (20 sets, daily range): BP systolic 101–146; BP diastolic 35–62
[2020-12-18 04:41] LABS: BASOPHILS % (AUTO) 0.3 % (0.0-2.0); EOSINOPHILS % (AUTO) 2.8 % (0.0-6.0); HEMATOCRIT 27 % (39-51); HEMOGLOBIN 9.3 g/dL (13.5-17.5); LYMPHOCYTES # (AUTO) 1.6 K/uL (0.8-4.8); LYMPHOCYTES % (AUTO) 35.5 % (20.0-44.0); MEAN CORPUSCULAR HGB CONC 34 g/dl (31.0-36.0); MEAN CORPUSCULAR VOLUME 97 fL (80-96); MONOCYTES # (AUTO) 0.5 K/uL (0.1-1.30); MONOCYTES % (AUTO) 10.9 % (2.0-12.0); NEUTROPHILS # (AUTO) 2.3 K/uL (1.8-8.9); NEUTROPHILS % (AUTO) 50.5 % (43.0-81.0); PLATELET COUNT (AUTO) 71 K/uL (150-450); RED BLOOD CELL COUNT(AUTO) 2.82 MIL/uL (4.5-6.0); WHITE BLOOD COUNT (AUTO) 4.5 K/uL (4.3-11.0)
[2020-12-18 04:50] LABS: CALCIUM, SERUM 8.8 mg/dL (8.5-10.1); CREATININE 1.2 mg/dL (0.6-1.3); POTASSIUM 3.8 mmol/L (3.5-5.1)
--- NOTE | 2020-12-18 07:45 | NUR ---
ICU/RN PT IS RESTING IN THE BED ON 3L N/C ,SAT O2-96%.V/S STABLE,AFEBRILE,NO PAIN REPORTED AT THIS TIME.IV-HL.F/C DRAINING WITH YELLOW URINE.LOWER BACK WOUND COVERED WITH DRY CLEAN DRESSING.LEFT ARM WOUND COVERED WITH DRESSING.MULTIPLY BRUISES AND SKIN TEARS NOTED ALL OVER THE BODY.LABS REVIEW.REPOSITION FOR COMFORT.CONTINUE MONITORING.
[2020-12-18] MEDS: POTASSIUM CHLORIDE 20 MEQ TAB.PRT.SR PO SCH (08:26)
[2020-12-18] MEDS: FUROSEMIDE 20 MG/2 ML VIAL IV SCH (08:26)
[2020-12-18] MEDS: ENSURE ENLIVE CHOC 237 ML CAN PO SCH (08:26)
[2020-12-18] MEDS: DOCUSATE SODIUM 100 MG CAPSULE PO SCH ×2 (08:26→16:37)
[2020-12-18] MEDS: ALLOPURINOL 100 MG TABLET PO SCH (08:26)
[2020-12-18] MEDS: FINASTERIDE (5 MG) 5 MG TABLET PO SCH (08:26)
[2020-12-18] MEDS: TIMOLOL 0.5% SOLN OPHTH 5 ML BOTTLE EACHEYE SCH (08:27)
[2020-12-18] MEDS: LEVOTHYROXINE SODIUM 50 MCG TABLET PO SCH (08:27)
[2020-12-18] MEDS: PANTOPRAZOLE 40 MG TABLET.DR PO SCH (08:27)
[2020-12-18] MEDS: LORAZEPAM INJ 2 MG/ML VIAL IV PRN (12:16)
[2020-12-18] MEDS: ENSURE CLEAR 237 ML LIQUID (MIX BERRY) PO SCH ×2 (12:17→16:37)
[2020-12-18] MEDS ORDERED: HEPARIN INFUSION/D5W 500 ML IV PRN (12:30)
--- NOTE | 2020-12-18 14:40 | NUR ---
ICU/RN HEPARIN 800 UNITS/HR-16 ML/HR IV STARTED ORDERED BY DR BARGER. PT IS RESTING IN THE BED .V/S STABLE.CONTINUE MONITORING.
--- NOTE | 2020-12-18 16:50 | NUR ---
ICU/RN PT TRANSFER TO TELE UNIT .V/S STABLE ,AFEBRILE ,NO PAIN REPORTED AT THIS TIME.
--- NOTE | 2020-12-18 17:00 | NUR ---
pt. transferred here via bed from icu.made comfortable. heparin infusing,hob elevated. family member at bedside.vs taken.f/c in place.tele report v pacing with bbb and rate of 66.
--- NOTE | 2020-12-18 19:30 | NUR ---
RN OPENING NOTE PATIENT IN BED, EYES CLOSED, PATIENT IS ABLE TO MAKE NEEDS KNOWN, A/O X 3. PATIENT IS CURRENTLY ON 4 L OF OXYGEN SUPPLEMENTATION VIA NC, PATIENT'S BREATHING EVENA ND UNLABORED. MILD COUGHING NOTED, PATIENT CURRENTLY HAS AN ONGOING HEPARIN DRIP 800 UNITS/HR ON JUAN ALBERTO MIDLINE. WILL TITRATE PER PROTOCOL. PATIENT ALSO HAS R FA 18 G SALINE LOCKED, AND R IJ. SAFETY MEASURES IN PLACE: BED LOCKED AND IN LOWEST POSITION, CALL LIGHT WITHIN REACH, SIDE RAILS UP, AND HOB ELEVATED. WILL MONITOR PATIENT CLOSELY.
[2020-12-18] MEDS: Z GUARD REMEDY 2 OZ OINT TP SCH (21:11)
[2020-12-18] MEDS: ATORVASTATIN 40 MG TABLET PO SCH (21:12)
[2020-12-18] MEDS: TAMSULOSIN 0.4 MG CAP.SR.24H PO SCH (21:13)
[2020-12-18] MEDS: LATANOPROST EYE DROP 0.005% 2.5 ML BOTTLE EACHEYE SCH (21:14)
--- NOTE | 2020-12-18 21:15 | NUR ---
RN NOTE LAB DRAWN, AWAITING APTT RESULTS
[2020-12-18 21:40] LABS: BASOPHILS % (AUTO) 0.5 % (0.0-2.0); EOSINOPHILS % (AUTO) 1.9 % (0.0-6.0); HEMATOCRIT 30 % (39-51); HEMOGLOBIN 9.8 g/dL (13.5-17.5); LYMPHOCYTES # (AUTO) 1.4 K/uL (0.8-4.8); LYMPHOCYTES % (AUTO) 34.7 % (20.0-44.0); MEAN CORPUSCULAR HGB CONC 33 g/dl (31.0-36.0); MEAN CORPUSCULAR VOLUME 97 fL (80-96); MONOCYTES # (AUTO) 0.5 K/uL (0.1-1.30); MONOCYTES % (AUTO) 12.2 % (2.0-12.0); NEUTROPHILS # (AUTO) 2.1 K/uL (1.8-8.9); NEUTROPHILS % (AUTO) 50.7 % (43.0-81.0); PLATELET COUNT (AUTO) 67 K/uL (150-450); RED BLOOD CELL COUNT(AUTO) 3.08 MIL/uL (4.5-6.0); WHITE BLOOD COUNT (AUTO) 4.2 K/uL (4.3-11.0)
--- NOTE | 2020-12-18 22:47 | NUR ---
RN NOTE HEPARIN DRIP HELD, WILL CONTINUE TO HOLD FOR 1 HR, THEN RESTART IT WITH 200 UNITS/H LESS (600 UNITS/HR), FOLLOWING PROTOCOL.
[2020-12-19] VITALS: BP 114/49
[2020-12-19] MEDS: HYDROCODONE/APAP 5/325MG TABLET PO PRN ×2 (01:44→18:50)
--- NOTE | 2020-12-19 01:44 | NUR ---
RN NOTE NORCO GIVEN FOR PATIENT COMPLAINING OF GENERALIZED PAIN, WILL REASSESS.
[2020-12-19 04:00] VITALS: BP 129/47
[2020-12-19 06:38] LABS: BASOPHILS % (AUTO) 0.4 % (0.0-2.0); EOSINOPHILS % (AUTO) 2.2 % (0.0-6.0); HEMATOCRIT 29 % (39-51); HEMOGLOBIN 9.9 g/dL (13.5-17.5); LYMPHOCYTES # (AUTO) 1.3 K/uL (0.8-4.8); LYMPHOCYTES % (AUTO) 35.3 % (20.0-44.0); MEAN CORPUSCULAR HGB CONC 34 g/dl (31.0-36.0); MEAN CORPUSCULAR VOLUME 99 fL (80-96); MONOCYTES # (AUTO) 0.4 K/uL (0.1-1.30); MONOCYTES % (AUTO) 11.4 % (2.0-12.0); NEUTROPHILS # (AUTO) 1.9 K/uL (1.8-8.9); NEUTROPHILS % (AUTO) 50.7 % (43.0-81.0); PLATELET COUNT (AUTO) 67 K/uL (150-450); RED BLOOD CELL COUNT(AUTO) 2.95 MIL/uL (4.5-6.0); WHITE BLOOD COUNT (AUTO) 3.7 K/uL (4.3-11.0)
[2020-12-19 06:58] LABS: CALCIUM, SERUM 8.6 mg/dL (8.5-10.1); CREATININE 0.9 mg/dL (0.6-1.3); POTASSIUM 3.8 mmol/L (3.5-5.1)
--- NOTE | 2020-12-19 07:00 | NUR ---
RN CLOSING NOTE HELD HEPARIN DRIP AT THIS TIME, CONTINUE FOR AN HOUR D/T PTT 107.4, RESTART AT 0800 AT 400 UNITS/HR. PATIENT IN BED EYES CLOSED, BREATHING EVEN AND UNLABORED TOLERATES 4L OF O2 SUPPLEMENT VIA NC. PATIENT'S TELE MONITOR READS 69 BPM WITH V PACING, AFIB, AND BBB. ALL NEEDS MET AND ATTENDED. ALL ORDERS CARRIED OUT. WILL ENDORSE TO DAY SHIFT NURSE FOR CALIN.
[2020-12-19 08:00] VITALS: BP 123/48
--- NOTE | 2020-12-19 08:04 | NUR ---
SHOWROOM MANAGER OPENING NOTES RECEIVED PATIENT ASLEEP IN BED, EASY TO AROUSE. ALERT AND ORIENTED X 3. NO SIGNS OR SYMPTOMS OF DISTRESS NOTED. NO SOB. NO COMPLAINTS OF PAIN AT THIS TIME. PATIENT ON 4L O2 VIA NC. IV ACCESS JUAN ALBERTO MIDLINE PATENT AND INTACT. SAFETY MEASURES IN PLACE WITH BED AT LOW POSITION, SIDE RAILS UP X2. CALL LIGHT IS WITHIN REACH. WILL CONTINUE TO MONITOR PATIENT THROUGHOUT SHIFT.
[2020-12-19] MEDS: ENSURE CLEAR 237 ML LIQUID (MIX BERRY) PO SCH ×2 (08:50→16:14)
[2020-12-19] MEDS: PANTOPRAZOLE 40 MG TABLET.DR PO SCH (08:50)
[2020-12-19] MEDS: TIMOLOL 0.5% SOLN OPHTH 5 ML BOTTLE EACHEYE SCH (09:00)
[2020-12-19] MEDS: FUROSEMIDE 40 MG TABLET PO SCH (09:00)
[2020-12-19] MEDS: DOCUSATE SODIUM 100 MG CAPSULE PO SCH ×2 (09:00→16:12)
[2020-12-19] MEDS: LEVOTHYROXINE SODIUM 50 MCG TABLET PO SCH (09:01)
[2020-12-19] MEDS: POTASSIUM CHLORIDE 20 MEQ TAB.PRT.SR PO SCH (09:01)
[2020-12-19] MEDS: ALLOPURINOL 100 MG TABLET PO SCH (09:01)
[2020-12-19] MEDS: FINASTERIDE (5 MG) 5 MG TABLET PO SCH (09:01)
[2020-12-19] MEDS: Z GUARD REMEDY 2 OZ OINT TP SCH ×2 (09:03→21:30)
--- NOTE | 2020-12-19 12:27 | NUR ---
MS RN NOTES RECEIVED ORDER FROM DR. FORBES TO DC TELE MONITOR AND DC IJ TLC. PATIENT REFUSED REMOVAL OF IJ RNECK AND REQUESTED TO REMOVE IV ACCESS RFA#[id number].
--- NOTE | 2020-12-19 15:24 | NUR ---
MS RN NOTES LABS DRAWN, AWAITING PTT AN ID/INR RESULTS.
[2020-12-19 16:00] VITALS: BP 115/41
[2020-12-19] MEDS ORDERED: APIXABAN 2.5 MG TABLET PO SCH (17:00)
--- NOTE | 2020-12-19 18:59 | NUR ---
MS RN CLOSING NOTES PATIENT ASLEEP IN BED, EASY TO AROUSE. ALERT AND ORIENTED X 3. NO SIGNS OR SYMPTOMS OF DISTRESS NOTED. SOME COUGH NOTED ON SHIFT. PATIENT REFUSED BREATHING TREATMENT. NO SOB. PATIENT COMPLAINED OF PAIN /. PAIN MEDICATION GIVEN@ 1850. WILL ENDORSE TO ONCOMING NURSE TO REASSESS. PATIENT ON 4L O2 VIA NC WITH O2 SATURATION AT 94% . IV ACCESS JUAN ALBERTO MIDLINE PATENT AND INTACT. SAFETY MEASURES IN PLACE WITH BED AT LOW POSITION, SIDE RAILS UP X2. CALL LIGHT IS WITHIN REACH. WILL ENDORSE CONTINUITY OF CARE TO ONCOMING SHIFT.
--- NOTE | 2020-12-19 19:45 | NUR ---
MS RN NOTES RECEIVED ON BED ON HIGH FOWLERS POSITION,BREATHING NON LABORED,O2 SAT 93% ON 4L/NC.MCCONNELL CATHETER IN PLACE DRAINING YELLOWISH OUTPUT.WITH RIGHT UPPER ARM MIDLINE FOR MEDS AND RIGHT IJ TLC,BOTH PATENT.FALL RISK PRECAUTION OBSERVED,BED ALARM,BED ON LOWEST POSITION AND LOCKED,CALL LIGHT IN REACH,NEEDS ANTICIPATED.
[2020-12-19 20:00] VITALS: BP 106/38
[2020-12-19 20:40] VITALS: BP 106/38
[2020-12-19] MEDS: ATORVASTATIN 40 MG TABLET PO SCH (21:30)
[2020-12-19] MEDS: LATANOPROST EYE DROP 0.005% 2.5 ML BOTTLE EACHEYE SCH (21:30)
[2020-12-19] MEDS: TAMSULOSIN 0.4 MG CAP.SR.24H PO SCH (21:30)
--- NOTE | 2020-12-19 22:30 | NUR ---
MS RN NOTES HAVING EPISODE OF COUGH,ORAL SUCTION TO CLEAR MUCUS FOR HIS MOUTH.
--- NOTE | 2020-12-20 01:00 | NUR ---
MS RN NOTES SLEEPING THIS TIME
--- NOTE | 2020-12-20 02:00 | NUR ---
MS RN NOTES AWAKE,REPOSITION
[2020-12-20] MEDS: HYDROCODONE/APAP 5/325MG TABLET PO PRN (03:25)
--- NOTE | 2020-12-20 03:25 | NUR ---
MS RN NOTES STILL AWKE,MOANS IN PAIN,MEDICATED WITH NORCO 5/325MG,1 TAB PO GIVEN WITH THICKENED WATER
--- NOTE | 2020-12-20 06:26 | NUR ---
MS RN NOTES PAIN MANAGEMENT EFFECTIVE,NO EPISODE OF SOB NOTED.SUCTION ORALLY NEEDED.NEGATIVE FOR ASPIRATION.O2 USED REMAINS AT 2L/NC.IN NO ACUTE DISTRESS.WILL ENDORSE TO DAY NURSE FOR CALIN.
[2020-12-20 06:30] LABS: BASOPHILS % (AUTO) 0.4 % (0.0-2.0); EOSINOPHILS % (AUTO) 0.5 % (0.0-6.0); HEMATOCRIT 24 % (39-51); HEMOGLOBIN 8.2 g/dL (13.5-17.5); LYMPHOCYTES # (AUTO) 1.3 K/uL (0.8-4.8); LYMPHOCYTES % (AUTO) 25.9 % (20.0-44.0); MEAN CORPUSCULAR HGB CONC 34 g/dl (31.0-36.0); MEAN CORPUSCULAR VOLUME 99 fL (80-96); MONOCYTES # (AUTO) 0.7 K/uL (0.1-1.30); MONOCYTES % (AUTO) 13.2 % (2.0-12.0); PLATELET COUNT (AUTO) 69 K/uL (150-450); RED BLOOD CELL COUNT(AUTO) 2.42 MIL/uL (4.5-6.0); WHITE BLOOD COUNT (AUTO) 4.9 K/uL (4.3-11.0)
[2020-12-20 06:59] LABS: CALCIUM, SERUM 8.5 mg/dL (8.5-10.1); POTASSIUM 4.3 mmol/L (3.5-5.1)
--- NOTE | 2020-12-20 07:35 | NUR ---
MS RN OPENING NOTES RECEIVED PATIENT IN BED, ASLEEP. PATIENT ON OXYGEN THERAPY AT 4 LPM VIA NASAL CANULA; BREATHING EVEN AND UNLABORED AT THIS TIME. NO S/S OF PAIN SUCH FACIAL GRIMACING, MOANING OR GUARDING PRESENT. JUAN ALBERTO MIDLINE AND R JJ TLC PRESENT AND INTACT. MCCONNELL CATHETER IN PLACE DRAINING ORANGE URINE. SAFETY PRECAUTIONS IN PLACE; BED IN LOW POSITION AND LOCKED, RAILS UP X2, CALL LIGHT WITHIN REACH. WILL CONTINUE TO MONITOR PATIENT.
[2020-12-20 08:00] VITALS: BP 118/45
[2020-12-20] MEDS: FUROSEMIDE 40 MG TABLET PO SCH (08:36)
[2020-12-20] MEDS: LEVOTHYROXINE SODIUM 50 MCG TABLET PO SCH (08:36)
[2020-12-20] MEDS: DOCUSATE SODIUM 100 MG CAPSULE PO SCH ×2 (08:36→16:59)
[2020-12-20] MEDS: POTASSIUM CHLORIDE 20 MEQ TAB.PRT.SR PO SCH (08:36)
[2020-12-20] MEDS: FINASTERIDE (5 MG) 5 MG TABLET PO SCH (08:36)
[2020-12-20] MEDS: ALLOPURINOL 100 MG TABLET PO SCH (08:36)
[2020-12-20] MEDS: PANTOPRAZOLE 40 MG TABLET.DR PO SCH (08:36)
[2020-12-20] MEDS: TIMOLOL 0.5% SOLN OPHTH 5 ML BOTTLE EACHEYE SCH (08:37)
[2020-12-20] MEDS: ENSURE CLEAR 237 ML LIQUID (MIX BERRY) PO SCH (08:37)
[2020-12-20] MEDS: Z GUARD REMEDY 2 OZ OINT TP SCH ×2 (08:37→21:07)
[2020-12-20 11:13] LABS: BASOPHILS % (AUTO) 0.2 % (0.0-2.0); EOSINOPHILS % (AUTO) 0.7 % (0.0-6.0); HEMATOCRIT 25 % (39-51); HEMOGLOBIN 8.2 g/dL (13.5-17.5); LYMPHOCYTES # (AUTO) 1.3 K/uL (0.8-4.8); LYMPHOCYTES % (AUTO) 22.4 % (20.0-44.0); MEAN CORPUSCULAR HGB CONC 33 g/dl (31.0-36.0); MEAN CORPUSCULAR VOLUME 97 fL (80-96); MONOCYTES # (AUTO) 0.8 K/uL (0.1-1.30); NEUTROPHILS # (AUTO) 3.6 K/uL (1.8-8.9); NEUTROPHILS % (AUTO) 62.7 % (43.0-81.0); PLATELET COUNT (AUTO) 69 K/uL (150-450); RED BLOOD CELL COUNT(AUTO) 2.57 MIL/uL (4.5-6.0); WHITE BLOOD COUNT (AUTO) 5.8 K/uL (4.3-11.0)
[2020-12-20] MEDS: ENSURE ENLIVE CHOC 237 ML CAN PO SCH (16:34)
--- NOTE | 2020-12-20 18:52 | NUR ---
MS RN CLOSING NOTES PATIENT REMAINS IN BED, AWAKE, A/O X3. PATIENT ON OXYGEN THERAPY AT 4 LPM VIA NASAL CANULA; BREATHING EVEN AND UNLABORED AT THIS TIME. NO COMPLAINS OF PAIN DURING SHIFT. JUAN ALBERTO MIDLINE AND R JJ TLC PRESENT AND INTACT. MCCONNELL CATHETER IN PLACE DRAINING ORANGE URINE WITH A DAILY OUTPUT OF 250 MLS. ALL NEEDS ATTENDED DURING THE DAY. SAFETY PRECAUTIONS IN PLACE; BED IN LOW POSITION AND LOCKED, RAILS UP X2, CALL LIGHT WITHIN REACH. WILL ENDORSE TO LABELING SPECIALIST NURSE.
--- NOTE | 2020-12-20 19:00 | NUR ---
rceived in bed alert and orientate x3 call light within his reach bed bed alarm on speaks in a whisper tone swallows w/o problems asp precautions
[2020-12-20 20:00] VITALS: BP 131/52
[2020-12-20 20:16] VITALS: BP 131/52
[2020-12-20] MEDS: LATANOPROST EYE DROP 0.005% 2.5 ML BOTTLE EACHEYE SCH (21:18)
[2020-12-20] MEDS: TAMSULOSIN 0.4 MG CAP.SR.24H PO SCH (21:20)
[2020-12-20] MEDS: ATORVASTATIN 40 MG TABLET PO SCH (21:21)
[2020-12-20] MEDS: ONDANSETRON HCL/PF 4 MG/2 ML VIAL IV PRN (21:27)
--- NOTE | 2020-12-21 06:17 | NUR ---
MS/TELE/RN PATIENT IS STILL SLEEPING, APPEAR COMFORTABLE, NO SIGNS OF DISTRESS NOTED, CALL LIGHT IN REACH, ALL NEEDS ATTENDED AT THIS TIME. WILL CONTINUE TO MONITOR.
[2020-12-21 07:10] LABS: BASOPHILS % (AUTO) 0.4 % (0.0-2.0); EOSINOPHILS % (AUTO) 0.6 % (0.0-6.0); HEMATOCRIT 26 % (39-51); HEMOGLOBIN 8.2 g/dL (13.5-17.5); LYMPHOCYTES # (AUTO) 1.4 K/uL (0.8-4.8); LYMPHOCYTES % (AUTO) 31.7 % (20.0-44.0); MEAN CORPUSCULAR HGB CONC 32 g/dl (31.0-36.0); MEAN CORPUSCULAR VOLUME 99 fL (80-96); MONOCYTES # (AUTO) 0.6 K/uL (0.1-1.30); NEUTROPHILS # (AUTO) 2.5 K/uL (1.8-8.9); NEUTROPHILS % (AUTO) 54.3 % (43.0-81.0); PLATELET COUNT (AUTO) 62 K/uL (150-450); RED BLOOD CELL COUNT(AUTO) 2.57 MIL/uL (4.5-6.0); WHITE BLOOD COUNT (AUTO) 4.5 K/uL (4.3-11.0)
[2020-12-21 07:27] LABS: CALCIUM, SERUM 8.6 mg/dL (8.5-10.1); CREATININE 1.2 mg/dL (0.6-1.3); POTASSIUM 5.1 mmol/L (3.5-5.1)
--- NOTE | 2020-12-21 07:28 | NUR ---
MS RN OPENING NOTES: RECEIVED PATIENT AWAKE IN BED IN NO ACUTE SIGNS OF DISTRESS. HOB ELEVATED. A/O X3. VERBALLY RESPONSIVE, DENIES PAIN AT THIS TIME. ON 02 VIA N/C AT 4LPM. TOLERATING WELL WITH NO SOB NOTED. JUAN ALBERTO MIDLINE INTACT, PATENT AND FLUSHES WELL. MCCONNELL IN PLACE DRAINING CLEAR YELLOW URINE VIA GRAVITY. SAFETY MEASURES IN PLACE: BED IN LOWEST LOCKED POSITION WITH SR UP X2. CALL LIGHT WITHIN REACH. WILL CONTINUE TO MONITOR PT ACCORDINGLY.
[2020-12-21] MEDS: PANTOPRAZOLE 40 MG TABLET.DR PO SCH (07:50)
[2020-12-21 08:00] VITALS: BP 118/52
[2020-12-21] MEDS: ENSURE ENLIVE CHOC 237 ML CAN PO SCH ×2 (08:16→17:40)
[2020-12-21] MEDS: LEVOTHYROXINE SODIUM 50 MCG TABLET PO SCH (08:39)
[2020-12-21] MEDS: POTASSIUM CHLORIDE 20 MEQ TAB.PRT.SR PO SCH (08:39)
[2020-12-21] MEDS: ALLOPURINOL 100 MG TABLET PO SCH (08:39)
[2020-12-21] MEDS: FINASTERIDE (5 MG) 5 MG TABLET PO SCH (08:39)
[2020-12-21] MEDS: FUROSEMIDE 40 MG TABLET PO SCH (08:39)
[2020-12-21] MEDS: Z GUARD REMEDY 2 OZ OINT TP SCH ×2 (08:41→21:51)
[2020-12-21] MEDS: DOCUSATE SODIUM 100 MG CAPSULE PO SCH ×2 (08:41→17:39)
[2020-12-21] MEDS: TIMOLOL 0.5% SOLN OPHTH 5 ML BOTTLE EACHEYE SCH (09:11)
[2020-12-21] MEDS ORDERED: ENOXAPARIN SODIUM 40 MG/0.4 ML DISP.SYRIN SQ SCH (10:30)
[2020-12-21] MEDS: ENOXAPARIN SODIUM 40 MG/0.4 ML DISP.SYRIN SQ SCH (13:24)
--- NOTE | 2020-12-21 13:26 | NUR ---
RN NOTES PT NOTED WITH LOW PLATELET [address] FORBES IF ITS OK TO GIVE LOVENOX 4OMG SQ AND SAID "OK" TO ADMINISTER.
[2020-12-21] MEDS: EPOETIN ALFA (10,000 UNIT) 10,000 UNIT/ML VIAL SQ SCH (14:49)
--- NOTE | 2020-12-21 14:55 | NUR ---
RN NOTES PROCRIT 10,00U ADMINISTERED TO RADHA SQ.
[2020-12-21] MEDS: ONDANSETRON HCL/PF 4 MG/2 ML VIAL IV PRN (15:11)
--- NOTE | 2020-12-21 15:13 | NUR ---
RN NOTES PT C/O NAUSEA, PRN ZOFRAN 4MG/2ML IVP ADMINISTERED AT 1511. WILL CONTINUE TO MONITOR AND REASSESS PT.
[2020-12-21 16:00] VITALS: BP 122/51
--- NOTE | 2020-12-21 18:43 | NUR ---
MS RN CLOSING NOTES: PATIENT IN BED AWAKE AND RESTING AT HIGH BACK REST POSITION. A/O X3. ABLE TO MAKE NEEDS KNOWN. ON 02 VIA N/C AT 4LPM. TOLERATING WELL WITH NO SOB NOTED. JUAN ALBERTO MIDLINE INTACT, PATENT AND FLUSHES WELL. RIGHT IJ INTACT AND PATENT. MCCONNELL IN PLACE DRAINING CLEAR DARK YELLOW URINE VIA GRAVITY, MCCONNELL CARE DONE. PT TURNED AND REPOSITIONED Q 2HRS AND PRN. ALL NEEDS AND CARE ATTENDED WELL. SAFETY MEASURES KEPT IN PLACE: BED IN LOWEST LOCKED POSITION WITH SR UP X2. CALL LIGHT WITHIN REACH. WILL ENDORSE CALIN TO NAIL PULLER NURSE.
--- NOTE | 2020-12-21 19:15 | NUR ---
RN NOTES: RECEIVED AWAKE ON BED ON SEMI FOWLERS POSITION,A/OX2-3, ORIENTED TO UNIT AND STAFF, ON O2 AT 4L/MIN VIA NC, MCCONNELL CATH IN SITE DRAINING INTO DARK YELLOWISH COLORED URINE AT 100 CC LEVEL, JUAN ALBERTO -ML IN SITE, PER ENDORSEMENT RIGHT LUNG HAS PNEUMOTHORAX-NO AGGRESSIVE MEASURE PER PATIENT AND FAMILY, ONLY SUPPORTIVE CARE.FAMILY REFUSED FOR CHEST TUBE. -CULL GRADER TRYING TO GET EVALUATION SCHEDULE WITH [facility].
[2020-12-21] MEDS: TAMSULOSIN 0.4 MG CAP.SR.24H PO SCH (21:38)
[2020-12-21] MEDS: LATANOPROST EYE DROP 0.005% 2.5 ML BOTTLE EACHEYE SCH (21:38)
[2020-12-21] MEDS: ATORVASTATIN 40 MG TABLET PO SCH (21:39)
[2020-12-21] MEDS: ACETAMINOPHEN 650 MG/20.3 ML UDC NG PRN (21:39)
--- NOTE | 2020-12-21 22:02 | NUR ---
RN NOTES: COMPLAINED OF GENERALIZED BODY PAIN, PRN MEDIATION GIVEN WITH APPLE SAUCE, KEPT UPRIGHT, ASPIRATION PRECAUTION OBSERVED.
--- NOTE | 2020-12-22 02:53 | NUR ---
RN NOTES: AT AROUND 2300, WARM SPONGE CLEANING RENDERED, DRESSING DONE ON THE SACRAL AREA, SUCTIONING DONE IN BETWEEN HE HAS SOB WHENEVER HE IS PLACED ON FLAT POSITION, UNABLE TO TOLERATE, PLACED BACK IN SEMI FOWLERS POSITION, CLEAN AND CHANGES. -FALL,SAFETY AND ASPIRATION PRECAUTION OBSERVED.
--- NOTE | 2020-12-22 04:19 | NUR ---
RN NOTES: -CALLS AND NEEDS ATTENDED AT 0100 GIVEN THICKENED WATER, SUCTIONING DONE, REPOSITIONING DONE. -AWAKE MOST OF THE TIME, HE WILL SAY HE CANNOT BREATH , SPO2-98% WITH O2 AT 4L/MIN VIA NC,KEPT ON HIGH FOWLERS POSITION. -ON CLOSE VISUAL CHECK, KEPT CALL LIGHT WITHIN EASY REACH.
[2020-12-22 07:25] LABS: BASOPHILS % (AUTO) 0.2 % (0.0-2.0); EOSINOPHILS % (AUTO) 0.9 % (0.0-6.0); HEMATOCRIT 24 % (39-51); LYMPHOCYTES # (AUTO) 0.9 K/uL (0.8-4.8); LYMPHOCYTES % (AUTO) 25.2 % (20.0-44.0); MEAN CORPUSCULAR HGB CONC 34 g/dl (31.0-36.0); MEAN CORPUSCULAR VOLUME 99 fL (80-96); MONOCYTES # (AUTO) 0.4 K/uL (0.1-1.30); MONOCYTES % (AUTO) 12.1 % (2.0-12.0); NEUTROPHILS # (AUTO) 2.2 K/uL (1.8-8.9); NEUTROPHILS % (AUTO) 61.6 % (43.0-81.0); PLATELET COUNT (AUTO) 63 K/uL (150-450); RED BLOOD CELL COUNT(AUTO) 2.38 MIL/uL (4.5-6.0); WHITE BLOOD COUNT (AUTO) 3.6 K/uL (4.3-11.0)
--- NOTE | 2020-12-22 07:41 | NUR ---
RN NOTES: STILL AWAKE, NEEDS ATTENDED, HE DRINK THICKENED WATER, TOLERATED, ASPIRATION PRECAUTION OBSERVED, NO SIGN OF RESPIRATORY DISCOMFORT, KEPT ON CLOSE WATCH, FOR LABS IN THE MORNING, ENDORSED FOR CONTINUITY OF CARE.LATEST WEIGHT 146.
--- NOTE | 2020-12-22 07:45 | NUR ---
RN OPENING NOTE RECEIVED PATIENT IN BED. A/O X3. ON 02 4 LPM VIA NC. NO S/S OF RESPIRATORY DISTRESS. DENIES ANY PAIN OR DISCOMFORT AT THIS TIME. IV ACCESS ON JUAN ALBERTO MIDLINE, INTACT AND PATENT. MCCONNELL CATHETER IN PLACE, DRAINING JOSELYN URINE. SAFETY MEASURES MAINTAINED. ASPIRATION PRECAUTIONS OBSERVED. BED IN LOWEST POSITION, BRAKES LOCKED. SIDE RAILS UP X2. CALL LIGHT WITHIN REACH. WILL CONTINUE PLAN OF CARE.
[2020-12-22 07:50] LABS: CREATININE 1.1 mg/dL (0.6-1.3); POTASSIUM 5.1 mmol/L (3.5-5.1)
[2020-12-22 07:54] LABS: CALCIUM, SERUM 8.9 mg/dL (8.5-10.1)
[2020-12-22 08:04] VITALS: BP 136/56
--- NOTE | 2020-12-22 08:05 | NUR ---
RN NOTE DAMION FROM LAB CALLED REGARDING CRITICAL LAB VALUE, C02 IS 42. DR BARGER IS MADE AWARE AND HE SAID DR ANTON WILL MAKE HIS ROUNDS TODAY.
[2020-12-22] MEDS: ACETYLCYSTEINE 10% SOLN 400 MG/4 ML VIAL NEB SCH ×3 (08:20→23:49)
[2020-12-22] MEDS: DOCUSATE SODIUM 100 MG CAPSULE PO SCH ×2 (08:46→16:34)
[2020-12-22] MEDS: FUROSEMIDE 40 MG TABLET PO SCH (08:46)
[2020-12-22] MEDS: POTASSIUM CHLORIDE 20 MEQ TAB.PRT.SR PO SCH (08:46)
[2020-12-22] MEDS: FINASTERIDE (5 MG) 5 MG TABLET PO SCH (08:46)
[2020-12-22] MEDS: LEVOTHYROXINE SODIUM 50 MCG TABLET PO SCH (08:46)
[2020-12-22] MEDS: ALLOPURINOL 100 MG TABLET PO SCH (08:46)
[2020-12-22] MEDS: ENOXAPARIN SODIUM 40 MG/0.4 ML DISP.SYRIN SQ SCH (08:47)
[2020-12-22] MEDS: ENSURE ENLIVE CHOC 237 ML CAN PO SCH ×2 (08:48→16:34)
[2020-12-22] MEDS: PANTOPRAZOLE 40 MG TABLET.DR PO SCH (08:48)
[2020-12-22] MEDS: TIMOLOL 0.5% SOLN OPHTH 5 ML BOTTLE EACHEYE SCH (08:49)
[2020-12-22] MEDS: Z GUARD REMEDY 2 OZ OINT TP SCH ×2 (08:49→21:30)
[2020-12-22 16:00] VITALS: BP 128/56
--- NOTE | 2020-12-22 18:23 | NUR ---
RN CLOSING NOTE PATIENT IN BED. A/O X3. ON 02 4 LPM VIA NC. NO S/S OF RESPIRATORY DISTRESS. DENIES ANY PAIN OR DISCOMFORT AT THIS TIME. IV ACCESS ON JUAN ALBERTO MIDLINE, INTACT AND PATENT. MCCONNELL CATHETER IN PLACE, DRAINING JOSELYN URINE. SAFETY MEASURES MAINTAINED. ASPIRATION PRECAUTIONS OBSERVED. BED IN LOWEST POSITION, BRAKES LOCKED. SIDE RAILS UP X2. CALL LIGHT WITHIN REACH. WILL ENDORSE TO ONCOMING SHIFT
[2020-12-22 20:00] VITALS: BP 132/58
--- NOTE | 2020-12-22 20:09 | NUR ---
MS RN OPENING NOTES Patient is A&Ox3. Resting in bed but awake. No signs of distress. Denies SOB on 4L O2 via NC. JUAN ALBERTO midline still intact and patent. Valver[place] patent and draining clear yellow urine. Will continue to monitor patient closely.
[2020-12-22] MEDS: ATORVASTATIN 40 MG TABLET PO SCH (21:30)
[2020-12-22] MEDS: LATANOPROST EYE DROP 0.005% 2.5 ML BOTTLE EACHEYE SCH (21:30)
[2020-12-22] MEDS: TAMSULOSIN 0.4 MG CAP.SR.24H PO SCH (21:30)
--- NOTE | 2020-12-23 05:07 | NUR ---
Patient sleeping intermittently throughout night though easy to wake. C/o neck pain x1 relieved by PRN Morphine. Patient prefers sleeping with HOB at 75 degree angle because it is easier to breathe. Denies SOB, no signs of distress. Turn q2h, kept clean and dry. Heels floated. All safety measures in place. aspiration precautions maintained.
[2020-12-23 06:46] LABS: BASOPHILS % (AUTO) 0.2 % (0.0-2.0); EOSINOPHILS % (AUTO) 0.8 % (0.0-6.0); HEMATOCRIT 25 % (39-51); HEMOGLOBIN 8.1 g/dL (13.5-17.5); LYMPHOCYTES # (AUTO) 1.1 K/uL (0.8-4.8); LYMPHOCYTES % (AUTO) 26.2 % (20.0-44.0); MEAN CORPUSCULAR HGB CONC 33 g/dl (31.0-36.0); MEAN CORPUSCULAR VOLUME 102 fL (80-96); MONOCYTES # (AUTO) 0.5 K/uL (0.1-1.30); MONOCYTES % (AUTO) 11.9 % (2.0-12.0); NEUTROPHILS # (AUTO) 2.5 K/uL (1.8-8.9); NEUTROPHILS % (AUTO) 60.9 % (43.0-81.0); PLATELET COUNT (AUTO) 87 K/uL (150-450); RED BLOOD CELL COUNT(AUTO) 2.41 MIL/uL (4.5-6.0); WHITE BLOOD COUNT (AUTO) 4.1 K/uL (4.3-11.0)
[2020-12-23 07:00] LABS: CALCIUM, SERUM 8.9 mg/dL (8.5-10.1); CREATININE 1.2 mg/dL (0.6-1.3); POTASSIUM 5.6 mmol/L (3.5-5.1)
[2020-12-23] MEDS: ACETYLCYSTEINE 10% SOLN 400 MG/4 ML VIAL NEB SCH (07:56)
[2020-12-23] MEDS: ALBUTEROL FS 2.5 MG/0.5 ML VIAL.NEB NEB PRN (07:57)
[2020-12-23] MEDS: ENSURE ENLIVE CHOC 237 ML CAN PO SCH (08:00)
[2020-12-23] MEDS: FINASTERIDE (5 MG) 5 MG TABLET PO SCH (09:48)
[2020-12-23] MEDS: DOCUSATE SODIUM 100 MG CAPSULE PO SCH (09:48)
[2020-12-23] MEDS: ENOXAPARIN SODIUM 40 MG/0.4 ML DISP.SYRIN SQ SCH (09:49)
[2020-12-23] MEDS: Z GUARD REMEDY 2 OZ OINT TP SCH (09:50)
[2020-12-23] MEDS: ALLOPURINOL 100 MG TABLET PO SCH (09:50)
[2020-12-23] MEDS: LEVOTHYROXINE SODIUM 50 MCG TABLET PO SCH (09:50)
[2020-12-23] MEDS: TIMOLOL 0.5% SOLN OPHTH 5 ML BOTTLE EACHEYE SCH (09:50)
[2020-12-23] MEDS: PANTOPRAZOLE 40 MG TABLET.DR PO SCH (09:50)
[2020-12-23] MEDS ORDERED: SODIUM POLYSTYRENE SULFONATE 15 G/60 ML BOTTLE PO ONE (11:30)
[2020-12-23 16:01] VITALS: BP 132/46
== END 2020-12-23 16:00 | DRG 280 ==
LOC: ER 11:28 → TELE1 13:56 → ICU 12-13 19:05 → TELE 12-18 17:06 → MED 12-19 12:20
PROVIDERS: ADMIT Internal Medicine; ATTEND Internal Medicine
PROC: 05HB33Z Insertion of Infusion Device into Right Basilic Vein, Percutaneous Approach (ICD-10-PCS; 2020-12-11)
PROC: 0W993ZZ Drainage of Right Pleural Cavity, Percutaneous Approach (ICD-10-PCS; principal; 2020-12-13)
PROC: 30233N1 Transfusion of Nonautologous Red Blood Cells into Peripheral Vein, Percutaneous Approach (ICD-10-PCS; 2020-12-13)
PROC: 30233R1 Transfusion of Nonautologous Platelets into Peripheral Vein, Percutaneous Approach (ICD-10-PCS; 2020-12-14)
DX: I11.0 Hypertensive heart disease with heart failure (principal); J18.9 Pneumonia, unspecified organism; I21.A1 Myocardial infarction type 2; J96.01 Acute respiratory failure with hypoxia; E87.1 Hypo-osmolality and hyponatremia; J98.11 Atelectasis; J94.2 Hemothorax; D61.818 Other pancytopenia; E44.0 Moderate protein-calorie malnutrition; I48.92 Unspecified atrial flutter; N39.0 Urinary tract infection, site not specified; J90 Pleural effusion, not elsewhere classified; I50.43 Acute on chronic combined systolic (congestive) and diastolic (congestive) heart failure; I42.9 Cardiomyopathy, unspecified; Z79.01 Long term (current) use of anticoagulants; E03.9 Hypothyroidism, unspecified; D46.9 Myelodysplastic syndrome, unspecified; D63.8 Anemia in other chronic diseases classified elsewhere; E78.5 Hyperlipidemia, unspecified; I25.10 Atherosclerotic heart disease of native coronary artery without angina pectoris; Z20.822 Contact with and (suspected) exposure to COVID-19; Z66 Do not resuscitate; N40.0 Benign prostatic hyperplasia without lower urinary tract symptoms; Z95.2 Presence of prosthetic heart valve; Z98.61 Coronary angioplasty status; Z95.0 Presence of cardiac pacemaker; Z93.1 Gastrostomy status; Z90.49 Acquired absence of other specified parts of digestive tract; Z87.891 Personal history of nicotine dependence; Z86.19 Personal history of other infectious and parasitic diseases; Z74.01 Bed confinement status; Z79.899 Other long term (current) drug therapy; Z79.890 Hormone replacement therapy; K74.60 Unspecified cirrhosis of liver; K76.0 Fatty (change of) liver, not elsewhere classified; K80.20 Calculus of gallbladder without cholecystitis without obstruction; I25.2 Old myocardial infarction; Z79.51 Long term (current) use of inhaled steroids; D47.2 Monoclonal gammopathy; D50.0 Iron deficiency anemia secondary to blood loss (chronic); Z87.440 Personal history of urinary (tract) infections; I35.0 Nonrheumatic aortic (valve) stenosis; L89.159 Pressure ulcer of sacral region, unspecified stage; M1A.0611 Idiopathic chronic gout, right knee, with tophus (tophi); I73.9 Peripheral vascular disease, unspecified; M51.34 Other intervertebral disc degeneration, thoracic region; Q98.4 Klinefelter syndrome, unspecified; R13.10 Dysphagia, unspecified; Z86.14 Personal history of Methicillin resistant Staphylococcus aureus infection; M40.204 Unspecified kyphosis, thoracic region; S51.802A Unspecified open wound of left forearm, initial encounter; X58.XXXA Exposure to other specified factors, initial encounter; Y92.9 Unspecified place or not applicable; R16.1 Splenomegaly, not elsewhere classified; I48.0 Paroxysmal atrial fibrillation
CPT/HCPCS: 31720; 36410; 36415; 36600; 71045-TC; 71250-TC; 76604-TC; 80048-TC; 80076-TC; 80202-TC; 81001; 82728-TC; 82803-TC; 83540-TC; 83615-TC; 83735-TC; 83880; 84484-TC; 85025-TC; 85396; 85610-TC; 85730-TC; 86850-TC; 86880-TC; 87070-TC; 87075-TC; 87081-TC; 87086-TC; 87102-TC; 89051-TC; 92526; 92611-TC; 94799-TC; 97112-TC; 97530-TC; A4217; A6253; A6403; G0378; J0456; J0696; J0885; J1644; J1650; J1940; J2060; J2185; J2270; J2405; J3370; J7030; J7050; J7060; P9016; P9034; U0003